=== PATIENT | female | born 1950 | race Caucasian/White ===

== ENCOUNTER 2017-06-14 13:20 | Inpatient (IN) | payer BC ==
[2017-06-14] MEDS ORDERED: RX INFO: IV CONTRAST WAS GIVEN 1 EACH MISC MISCELLANE PRN (13:51)
[2017-06-14] MEDS ORDERED: SODIUM CHLORIDE 0.9% 500 ML IV STA (13:51)
[2017-06-14] MEDS ORDERED: SODIUM CHLORIDE 0.9% 1,000 ML IV STA (13:51)
[2017-06-14 14:05] LABS: HCT 39.2 % (34.0-46.0); MCHC 35.7 g/dL (31.0-37.0); Mean Platelet Volume 7.6; Platelet Count 285 k/uL (150-450); RBC 4.13 m/uL (3.80-5.40); RDW 13.2 % (11.5-15.5); WBC 21.7 k/uL (3.8-10.6)
[2017-06-14 14:19] LABS: Calcium 8.9 mg/dL (8.4-10.2); Potassium 4.5 mmol/L (3.5-5.1); Total Bilirubin 0.7 mg/dL (0.2-1.3); Total Protein 7.5 g/dL (6.3-8.2)
--- NOTE | 2017-06-14 14:23 | ED ---
General Adult HPI - General Chief complaint: Shortness of Breath Stated complaint: Neck Pain Time Seen by Provider: 06/14/17 13:35 Source: patient, RN notes reviewed, old records reviewed Mode of arrival: ambulatory Limitations: no limitations - History of Present Illness Initial comments: This is a 66-year-old female the ER for evaluation. Multiple medical conditions and complaints. Patient states 2-3 weeks of multiple nonspecific complaints, chest pain back pain numbness and tingling in her hands, occasional shortness of breath with feelings of bloating and belching, occasional hiccuping and reflux. No fevers or cough congestion no travel history no significant sick contacts - Related Data Home Medications Medication Instructions Recorded Confirmed Albuterol Inhaler [Ventolin Hfa 2 puff INHALATION RT-Q6H PRN 06/14/17 06/14/17 Inhaler] Albuterol Nebulized [Ventolin 2.5 mg INHALATION RT-Q6H PRN 06/14/17 06/14/17 Nebulized] Calcium/Magnesium/Zinc 1 tab PO DAILY 06/14/17 06/14/17 [Xmqdirk-Vatxeclaa-Kiyw Tablet] Felicia-C 1,000 mg PO DAILY 06/14/17 06/14/17 Levothyroxine Sodium [Synthroid] 50 mcg PO DAILY 06/14/17 06/14/17 Mometasone/Formoterol [Dulera 100 2 puff INHALATION RT-DAILY 06/14/17 06/14/17 Mcg/5 Mcg Inhaler] Multivitamins, Thera [Multivitamin 1 tab PO DAILY 06/14/17 06/14/17 (formulary)] Vitamin E (Dl,Tocopheryl Acet) 400 unit PO DAILY 06/14/17 06/14/17 [Vitamin E] Allergies Allergy/AdvReac Type Severity Reaction Status Date / Time cefaclor [From Ceclor] Allergy Unknown Verified 06/14/17 13:47 ciprofloxacin [From Cipro] Allergy Unknown Verified 06/14/17 13:47 clarithromycin [From Biaxin] Allergy Unknown Verified 06/14/17 13:47 Sulfa (Sulfonamide Allergy Unknown Verified 06/14/17 13:47 Antibiotics) Review of Systems ROS Statement: Those systems with pertinent positive or pertinent negative responses have been documented in the HPI. ROS Other: All systems not noted in ROS Statement are negative. Past Medical History Past Medical History: Asthma, Pneumonia, Thyroid Disorder History of Any Multi-Drug Resistant Organisms: None Reported Past Surgical History: Cholecystectomy Past Psychological History: No Psychological Hx Reported Smoking Status: Former smoker Past Alcohol Use History: Occasional Past Drug Use History: None Reported General Exam Limitations: no limitations General appearance: alert, in no apparent distress Head exam: Present: atraumatic, normocephalic, normal inspection Eye exam: Present: normal appearance, PERRL, EOMI. Absent: scleral icterus, conjunctival injection, periorbital swelling ENT exam: Present: normal exam, mucous membranes moist Neck exam: Present: normal inspection. Absent: tenderness, meningismus, lymphadenopathy Respiratory exam: Present: normal lung sounds bilaterally. Absent: respiratory distress, wheezes, rales, rhonchi, stridor Cardiovascular Exam: Present: regular rate, normal rhythm, normal heart sounds. Absent: systolic murmur, diastolic murmur, rubs, gallop, clicks GI/Abdominal exam: Present: soft, normal bowel sounds. Absent: distended, tenderness, guarding, rebound, rigid Extremities exam: Present: normal inspection, full ROM, normal capillary refill. Absent: tenderness, pedal edema, joint swelling, calf tenderness Back exam: Present: normal inspection Neurological exam: Present: alert, oriented X3, CN II-XII intact Psychiatric exam: Present: normal affect, normal mood Skin exam: Present: warm, dry, intact, normal color. Absent: rash Course Vital Signs 06/14/17 06/14/17 06/14/17 13:28 15:04 15:46 Temperature 99.2 F Pulse Rate 75 103 H 103 H Respiratory 18 18 20 Rate Blood Pressure 116/59 133/80 149/79 O2 Sat by Pulse 98 96 98 Oximetry - Reevaluation(s) Reevaluation #1: 06/14/17 16:07 Patient not showing any And I'll like effects of pericardial effusion, EKG Findings - EKG Comments: EKG Findings:: EKG shows sinus tachycardia rate 170, HI 122, QRS 94, QTC 479 Medical Decision Making - Medical Decision Making 66 female with moderate to severe pericardial effusion, white count 20, likely reactive myocarditis, patient be admitted for cardiothoracic and cardiology consultation - Lab Data Result diagrams: 06/14/17 13:42 06/14/17 13:42 Lab Results 06/14/17 06/14/17 06/14/17 Range/Units 13:42 13:42 13:42 WBC 21.7 H (3.8-10.6) k/uL RBC 4.13 (3.80-5.40) m/uL Hgb 14.0 (11.4-16.0) gm/dL Hct 39.2 (34.0-46.0) % MCV 95.0 (80.0-100.0) fL MCH 34.0 (25.0-35.0) pg MCHC 35.7 (31.0-37.0) g/dL RDW 13.2 (11.5-15.5) % Plt Count 285 (150-450) k/uL Neutrophils % (Manual) 29 % Lymphocytes % (Manual) 38 % Monocytes % (Manual) 2 % Eosinophils % (Manual) 31 % Neutrophils # (Manual) 6.29 (1.3-7.7) k/uL Lymphocytes # (Manual) 8.25 H (1.0-4.8) k/uL Monocytes # (Manual) 0.43 (0-1.0) k/uL Eosinophils # (Manual) 6.73 H (0-0.7) k/uL Nucleated RBCs 0 (0-0) /100 WBC Manual Slide Review Performed Hypochromasia (manual) Present PT (9.0-12.0) sec INR (<1.2) APTT (22.0-30.0) sec D-Dimer (<0.60) mg/L FEU Sodium 134 L (137-145) mmol/L Potassium 4.5 (3.5-5.1) mmol/L Chloride 96 L (98-107) mmol/L Carbon Dioxide 25 (22-30) mmol/L Anion Gap 13 mmol/L BUN 16 (7-17) mg/dL Creatinine 0.89 (0.52-1.04) mg/dL Est GFR (CKD-EPI)AfAm 79 (>60 ml/min/1.73 sqM) Est GFR (CKD-EPI)NonAf 69 (>60 ml/min/1.73 sqM) Glucose 143 H (74-99) mg/dL Calcium 8.9 (8.4-10.2) mg/dL Total Bilirubin 0.7 (0.2-1.3) mg/dL AST 53 H (14-36) U/L ALT 51 (9-52) U/L Alkaline Phosphatase 79 (38-126) U/L Total Creatine Kinase 123 (30-135) U/L CK-MB (CK-2) 9.7 H* (0.0-2.4) ng/mL CK-MB (CK-2) Rel Index 7.9 Troponin I 1.920 H* (0.000-0.034) ng/mL NT-Pro-B Natriuret Pep pg/mL Total Protein 7.5 (6.3-8.2) g/dL Albumin 4.0 (3.5-5.0) g/dL Lipase 56 (23-300) U/L 06/14/17 06/14/17 Range/Units 13:42 13:42 WBC (3.8-10.6) k/uL RBC (3.80-5.40) m/uL Hgb (11.4-16.0) gm/dL Hct (34.0-46.0) % MCV (80.0-100.0) fL MCH (25.0-35.0) pg MCHC (31.0-37.0) g/dL RDW (11.5-15.5) % Plt Count (150-450) k/uL Neutrophils % (Manual) % Lymphocytes % (Manual) % Monocytes % (Manual) % Eosinophils % (Manual) % Neutrophils # (Manual) (1.3-7.7) k/uL Lymphocytes # (Manual) (1.0-4.8) k/uL Monocytes # (Manual) (0-1.0) k/uL Eosinophils # (Manual) (0-0.7) k/uL Nucleated RBCs (0-0) /100 WBC Manual Slide Review Hypochromasia (manual) PT 11.1 (9.0-12.0) sec INR 1.2 H (<1.2) APTT 24.4 (22.0-30.0) sec D-Dimer 0.81 H (<0.60) mg/L FEU Sodium (137-145) mmol/L Potassium (3.5-5.1) mmol/L Chloride (98-107) mmol/L Carbon Dioxide (22-30) mmol/L Anion Gap mmol/L BUN (7-17) mg/dL Creatinine (0.52-1.04) mg/dL Est GFR (CKD-EPI)AfAm (>60 ml/min/1.73 sqM) Est GFR (CKD-EPI)NonAf (>60 ml/min/1.73 sqM) Glucose (74-99) mg/dL Calcium (8.4-10.2) mg/dL Total Bilirubin (0.2-1.3) mg/dL AST (14-36) U/L ALT (9-52) U/L Alkaline Phosphatase (38-126) U/L Total Creatine Kinase (30-135) U/L CK-MB (CK-2) (0.0-2.4) ng/mL CK-MB (CK-2) Rel Index Troponin I (0.000-0.034) ng/mL NT-Pro-B Natriuret Pep 5020 pg/mL Total Protein (6.3-8.2) g/dL Albumin (3.5-5.0) g/dL Lipase (23-300) U/L - Radiology Data Radiology results: report reviewed (CTA chest and pelvis positive for pericardial effusion, echocardiogram moderate to severe pericardial effusion), image reviewed Critical Care Time Critical Care Time: Yes Total Critical Care Time: 31 Disposition Clinical Impression: Pericardial effusion, Elevated troponin Disposition: ADMITTED IP TO THIS HOSP Condition: Fair Referrals: Katerin Whitlock MD [Primary Care Provider] - 1-2 days
[2017-06-14 14:24] LABS: INR 1.2 (<1.2)
[2017-06-14 14:25] LABS: D-Dimer 0.81 mg/L FEU (<0.60); Partial Thromboplastin Time 24.4 sec (22.0-30.0); Prothrombin Time 11.1 sec (9.0-12.0)
[2017-06-14 14:27] LABS: Eosinophils # (M) 6.73 k/uL (0-0.7); Hypochromasia (M) Present; Lymphocytes # (M) 8.25 k/uL (1.0-4.8); Monocytes # (M) 0.43 k/uL (0-1.0); Neutrophils # (M) 6.29 k/uL (1.3-7.7); Neutrophils % (M) 29 %; Nucleated Red Blood Cells 0 /100 WBC (0-0); Total Cells Counted 100
--- NOTE | 2017-06-14 14:47 | CT ---
EXAMINATION TYPE: CT cervical spine wo con DATE OF EXAM: 06/14/2017 COMPARISON: NONE HISTORY: Patient complains of neck pain with radiation bilaterally to the arms. CT DLP: 168.7 mGycm CONTRAST: None CT of the cervical spine is performed in the axial plane at 2 mm thick sections. Reconstructed image s in the coronal, and sagittal plane are reviewed on the computer. No acute fractures are evident. Vertebral body alignment is normal. Diffuse disc space narrowing is present. Minimal vacuum disc phenomenon is present C5-C6. Note is mad e of spina bifida occulta at C1. Vertebral body heights are preserved. No spinal canal stenosis is evident No neural foraminal stenosis is evident. Incidental note is made of a small right pleural effusion. IMPRESSIONS: 1. Mild degenerative disc changes cervical spine. 2. No acute osseous abnormality evident.
--- NOTE | 2017-06-14 14:50 | CT ---
CT CHEST FOR PULMONARY EMBOLISM. EXAMINATION TYPE: CT angio chest DATE OF EXAM: 06/14/2017 INDICATION: Patient complains of difficulty breathing and chest congestion. CT DLP: 116.8 mGycm, Automated exposure control for dose reduction was used. CONTRAST: Patient injected with 100 mL of Isovue 370. COMPARISON: 05/03/2010 TECHNIQUE: CT of the chest is performed on a spiral scan at 2 mm thick sections. Study is performed with intravenous contrast timed for evaluation for pulmonary embolism. This will limit additional po rtions of the evaluation. 3-D MIP images reconstructed by the technologist are reviewed on the compu ter in the coronal and sagittal planes. FINDINGS: No persistent filling defects are evident to suggest an acute pulmonary embolism. No mediastinal or hilar adenopathy enlarged by CT criteria is evident. The ascending aorta diameter at the level of the main pulmonary artery is 3.1 cm. The main pulmonary artery diameter at the bifur cation is 2.5 cm. There is a moderate right pleural effusion. Pericardial effusion is present. Bilateral breast prostheses are present. There are scattered infiltrates throughout the bilateral craig gs on lung windows. Right apical thickening may be present. Limited CT section through the upper abdomen are unremarkable. IMPRESSIONS: 1. Small bilateral pleural effusions. 2. Pericardial effusion. 3. Scattered infiltrates greater at the lung bases. Correlate for atelectasis. 4. No acute pulmonary embolism.
--- NOTE | 2017-06-14 14:54 | CT ---
EXAMINATION TYPE: CT abdomen pelvis w con DATE OF EXAM: 06/14/2017 COMPARISON: NONE INDICATION: Patient complains of LUQ pain and nausea. DLP: 1314.8 mGycm, Automated exposure control for dose reduction was used. CONTRAST: 100 mL of Isovue 370. Study performed without Oral Contrast TECHNIQUE: Axial images were obtained from above the diaphragm to the pubic rami in the axial plane a t 5 mm thick sections. Reconstructed images are reviewed on the computer in the coronal plane. FINDINGS: Limited CT sections are obtained the lung bases. Small bilateral pleural effusions are present. Some adjacent compressive atelectasis is likely present. Large pericardial effusion is again evident.. CT ABDOMEN: Liver: On early phase contrast images the liver and spleen and heterogenous appearance. These have a more homogenous appearance on delayed images. Spleen: Normal Pancreas: Normal Adrenal glands: The adrenal glands are normal. Gallbladder: Surgically absent. Kidneys: No masses are evident. No hydronephrosis is present. No cysts are present. Delayed images were obtained through the kidneys, which remain unremarkable. Aorta: Vascular calcification is within the aorta. Inferior vena cava: Normal. CT PELVIS: Loops of bowel within the abdomen and pelvis are normal. Appendix: Normal as visualized. Urinary bladder: Normal. Genitourinary structures: Free fluid is within the right hemipelvis. Uterus and adnexal regions appea r clear. Osseous structures: No suspicious lytic or sclerotic lesions. IMPRESSIONS: 1. Small bilateral pleural effusions. 2. Moderately large pericardial effusion. 3. No suspicious abnormality within the abdomen or pelvis. #4 free fluid within the pelvis.
[2017-06-14 15:02] LABS: Creatine Kinase MB 9.7 ng/mL (0.0-2.4); Troponin I 1.92 ng/mL (0.000-0.034)
[2017-06-14] MEDS ORDERED: ASPIRIN 81 MG PO STA (15:11)
[2017-06-14] MEDS ORDERED: NITROGLYCERIN SL TABS 0.4 MG TAB SUBLINGUAL PRN (15:11)
[2017-06-14] MEDS ORDERED: MORPHINE SULFATE 4MG/4ML SYRG IV PRN (15:11)
--- NOTE | 2017-06-14 17:28 | P.HPIM ---
History of Present Illness H&P Date: 06/14/17 Chief Complaint: exertional dyspnea 66-year-old female with history of hypothyroid and intermittent asthma. Patient presented to the ER due to symptoms of new onset exertional dyspnea, orthopnea, productive cough of yellowish sputum, and wheezing. She reports that she is healthy otherwise and pretty active normally however over the past 2 weeks she couldn't even walk around the house without having exertional dyspnea having to rest. However despite that she denies any chest pain or pleuritic chest pain. Denies any fevers or chills. She reports that back in early May she had flulike symptoms and was sick for around 10 days with severe symptoms of fevers muscle aches, sore throat, runny nose and coughing. She got treated with a course of antibiotic at that time. And then 2 weeks later she developed symptoms of generalized malaise weakness, neck pain radiating to both arms, belching, dyspepsia and hookups. She saw her PCP for that prescribed her some Protonix, and then later was followed by the symptoms above orthopnea and exertional dyspnea. She has never had a heart attack in her life, she quit smoking over 8 years ago , and she reports reports that she has been pretty much healthy all her life. She reports no significant family history of coronary artery disease. She denies any leg swelling, but does report early satiety and poor appetite. Review of Systems Constitutional: Patient denies fever, denies chills, denies night sweating, denies significant weight changes Eyes: Patient denies visual changes, denies eye pain ENT: Patient denies ear pain, denies rhinorrhea, denies sore throat Cardiovascular: Patient denies chest pain, reports exertional dyspnea, denies peripheral leg edema, reports orthopnea, denies paroxysmal nocturnal dyspnea Respiratory: as per HPI Gastrointestinal: Patient denies diarrhea, denies constipation, denies nausea , denies vomiting, denies abdominal pain Genitourinary: Patient denies dysuria, denies hematuria, denies changes in urinary habits, denies genital lesions Musculoskeletal: Patient denies muscle pain, denies joint pain Psychiatric: Patient denies changes in mood or memory, denies suicidal ideation, denies anxiety Endocrine: Patient denies heat intolerance, denies cold intolerance, denies excessive thirst, denies polyuria Neurological: Patient denies focal neurologic deficits, denies weakness, denies numbness, denies tingling Hem/Lymphatic: Patient denies bleeding tendency, denies bruising, denies swollen lymph glands Allergic/Immun: Patient denies recent allergic reactions Skin: Patient denies rashes, denies pruritis, denies ulcers Past Medical History Past Medical History: Asthma, Pneumonia, Thyroid Disorder History of Any Multi-Drug Resistant Organisms: None Reported Past Surgical History: Cholecystectomy Past Psychological History: No Psychological Hx Reported Smoking Status: Former smoker Past Alcohol Use History: Occasional Past Drug Use History: None Reported - Past Family History Family Additional Family Medical History / Comment(s): Healthy family overall they all live to old age and healthy. grandfather Additional Family Medical History / Comment(s): lung cancer Medications and Allergies Home Medications Medication Instructions Recorded Confirmed Type Albuterol Inhaler [Ventolin Hfa 2 puff INHALATION RT-Q6H PRN 06/14/17 06/14/17 History Inhaler] Albuterol Nebulized [Ventolin 2.5 mg INHALATION RT-Q6H PRN 06/14/17 06/14/17 History Nebulized] Calcium/Magnesium/Zinc 1 tab PO DAILY 06/14/17 06/14/17 History [Blwnely-Rshcquivj-Uhys Tablet] Felicia-C 1,000 mg PO DAILY 06/14/17 06/14/17 History Levothyroxine Sodium [Synthroid] 50 mcg PO DAILY 06/14/17 06/14/17 History Mometasone/Formoterol [Dulera 100 2 puff INHALATION RT-DAILY 06/14/17 06/14/17 History Mcg/5 Mcg Inhaler] Multivitamins, Thera [Multivitamin 1 tab PO DAILY 06/14/17 06/14/17 History (formulary)] Vitamin E (Dl,Tocopheryl Acet) 400 unit PO DAILY 06/14/17 06/14/17 History [Vitamin E] Allergies Allergy/AdvReac Type Severity Reaction Status Date / Time cefaclor [From Ceclor] Allergy Unknown Verified 06/14/17 13:47 ciprofloxacin [From Cipro] Allergy Unknown Verified 06/14/17 13:47 clarithromycin [From Biaxin] Allergy Unknown Verified 06/14/17 13:47 Sulfa (Sulfonamide Allergy Unknown Verified 06/14/17 13:47 Antibiotics) Physical Exam Vitals: Vital Signs Temp Pulse Resp BP Pulse Ox 06/14/17 15:46 103 H 20 149/79 98 06/14/17 15:04 103 H 18 133/80 96 06/14/17 13:28 99.2 F 75 18 116/59 98 Intake and Output 06/14/17 06/14/17 06/14/17 06:59 14:59 22:59 Other: Weight 56.699 kg Constitutional: No acute distress, conversant, pleasant Eyes: Anicteric sclerae, moist conjunctiva, no lid-lag Pupils equal round reactive to light ENMT: NC/AT Oropharynx clear, no erythema, exudates Neck: Supple, FROM, no masses, positive JVD No carotid bruits No thyromegaly Lungs: Decreased breath sounds at lung bases with and expiratory rhonchi, fine inspiratory rales Clear to percussion Normal respiratory effort Cardiovascular: Heart regular in rate and rhythm, frequent ectopic beats, pericardial rubs No murmurs, gallops No peripheral edema Abdominal: Soft Tenderness to deep palpation over the epigastric region , no guarding, rebound or rigidity Abdomen moving with respiration Normoactive bowel sounds No hepatomegaly, No splenomegaly No palpable mass No abdominal wall hernia noted Skin: Normal temperature, tone, texture, turgor No induration No subcutaneous nodules No rash, lesions No ulcers Extremities: No digital cyanosis No clubbing Pedal pulses intact and symmetrical Radial pulses intact and symmetrical No calf tenderness Psychiatric: Alert and oriented to person, place and time Appropriate affect fair judgment Neuro Muscles Strength 5/5 in all 4 extremities Sensation to light touch grossly present throughout Cranial nerves II-XII grossly intact No focal sensory deficits Lymphatics: no palpable cervical or supraclavicular , or inguinal lymph nodes Results CBC & Chem 7: 06/14/17 13:42 06/14/17 13:42 Labs: Abnormal Lab Results - Last 24 Hours (Table) 06/14/17 06/14/17 06/14/17 Range/Units 13:42 13:42 13:42 WBC 21.7 H (3.8-10.6) k/uL Lymphocytes # (Manual) 8.25 H (1.0-4.8) k/uL Eosinophils # (Manual) 6.73 H (0-0.7) k/uL INR (<1.2) D-Dimer (<0.60) mg/L FEU Sodium 134 L (137-145) mmol/L Chloride 96 L (98-107) mmol/L Glucose 143 H (74-99) mg/dL AST 53 H (14-36) U/L CK-MB (CK-2) 9.7 H* (0.0-2.4) ng/mL Troponin I 1.920 H* (0.000-0.034) ng/mL C-Reactive Protein (<10.0) mg/L 06/14/17 06/14/17 Range/Units 13:42 13:42 WBC (3.8-10.6) k/uL Lymphocytes # (Manual) (1.0-4.8) k/uL Eosinophils # (Manual) (0-0.7) k/uL INR 1.2 H (<1.2) D-Dimer 0.81 H (<0.60) mg/L FEU Sodium (137-145) mmol/L Chloride (98-107) mmol/L Glucose (74-99) mg/dL AST (14-36) U/L CK-MB (CK-2) (0.0-2.4) ng/mL Troponin I (0.000-0.034) ng/mL C-Reactive Protein 58.0 H (<10.0) mg/L Assessment and Plan Assessment: 66-year-old female with history of intermittent asthma and hypothyroid, presented with 1-2 week history of orthopnea, exertional dyspnea, and generalized weakness and malaise. She reported that she is healthy at baseline , however she had flulike symptoms in early May lasted for 2 weeks and then within a week or 2 later she started having symptoms of generalized malaise weakness, dyspepsia, exertional dyspnea, and orthopnea. She denies any chest pain. In the ER further workup including imaging with CAT scan of the chest suggested moderate to large pericardial effusion, labs showed elevated cardiac biomarkers, clinical picture suggestive of of left ventricular heart failure, along with EKG showing frequent PVCs. This is suggestive of myopericarditis however she denies any chest pain or any pleuritic chest pain. Patient will be admitted to the ICU for further workup and evaluation by cardiology and cardiothoracic surgery. 2-D echocardiogram is pending. Patient seems to be intolerant of NSAIDs so was started on prednisone and colchicine. Plan: # Probable myocarditis (new onset exertional dyspnea, EKG changes with frequent PVCs, elevated cardiac biomarkers) #Moderate to large Pericardial secondary to above and bilateral small pleural effusion rule out heart failure Patient with history of dyspepsia, currently on PPI I will avoid NSAIDs Start patient on prednisone 30 mg for 2 weeks and colchicine 0.6 mg daily for 3 months for myocarditis Check MELECIO Check 2-D echocardiogram Cardiology and cardiothoracic surgery consult Admission to the ICU for close monitoring Cardiac monitoring Check ESR Check CRP #Leukocytosis Most likely reactive Afebrile #Hypothyroidism Currently stable Continue with levothyroxine #Dyspepsia Continue with Protonix twice a day #DVT prophylaxis Heparin subcu 3 times a day Surrogate decision-maker: Patient CODE STATUS: Full code DVT prophylaxis: Heparin subcu Discussed with: Patient, ER, family Anticipated discharge: > [address]: Home A total of 60 minutes was spent on the care of this complex patient more than 50 % of the time was spent in counseling and care coordination.
--- NOTE | 2017-06-14 17:43 | ECHOF ---
Referral Reason:effusion MEASUREMENTS -------- HEIGHT: 162.6 cm WEIGHT: 56.7 kg BP: 133/80 RVIDd: 1.6 cm (< 3.3) IVSd: 1.0 cm (0.6 - 1.1) LVIDd: 4.4 cm (3.9 - 5.3) LVPWd: 0.9 cm (0.6 - 1.1) IVSs: 1.3 cm LVIDs: 2.8 cm LVPWs: 1.5 cm LA Diam: 3.3 cm (2.7 - 3.8) LAESV Index (A-L): 30.41 ml/m Ao Diam: 3.1 cm (2.0 - 3.7) AV Cusp: 1.8 cm (1.5 - 2.6) MV EXCURSION: 14.577 mm (> 18.000) MV EF SLOPE: 52 mm/s (70 - 150) EPSS: 0.7 cm MV E El: 0.69 m/s MV DecT: 199 ms MV A El: 0.77 m/s MV E/A Ratio: 0.90 RAP: 5.00 mmHg RVSP: 26.36 mmHg FINDINGS -------- Resting tachycardia (HR>100bpm). This was a technically good study. The left ventricular size is normal. Left ventricular wall thickness is normal. Overall left vent ricular systolic function is low-normal with, an EF between 50 - 55 %. The right ventricle is normal in size. LA is midly dilated 29-33ml/m2. The right atrium is normal in size. The aortic valve is trileaflet and appears structurally normal. [id number] mitral regurgitation is present. Mild tricuspid regurgitation present. Right ventricular systolic pressure is normal at < 35 mmHg. There is no pulmonic regurgitation present. The aortic root size is normal. The inferior vena cava is mildly dilated. There is a large, generalized pericardial effusion present. CONCLUSIONS -------- 1. Resting tachycardia (HR>100bpm). 2. This was a technically good study. 3. The left ventricular size is normal. 4. Left ventricular wall thickness is normal. 5. Overall left ventricular systolic function is low-normal with, an EF between 50 - 55 %. 6. The right ventricle is normal in size. 7. LA is midly dilated 29-33ml/m2. 8. The right atrium is normal in size. 9. The aortic valve is trileaflet and appears structurally normal. 10. [id number]-[id number]-vjjdom mitral regurgitation is present. 11. Mild tricuspid regurgitation present. 12. Right ventricular systolic pressure is normal at < 35 mmHg. 13. There is no pulmonic regurgitation present. 14. The aortic root size is normal. 15. The inferior vena cava is mildly dilated. 16. There is a large, generalized pericardial effusion present. PROCUREMENT ASSISTANT: Jesisca Smith RDCS
[2017-06-14 17:50] LABS: Glucose,Whole Blood 101 mg/dL (75-99)
--- NOTE | 2017-06-14 17:51 | P.CRDCN ---
History of Present Illness Consult date: 06/14/17 Chief complaint: Shortness of breath History of present illness: This is a pleasant 66-year-old female patient with no significant cardiac history presented to the emergency room with shortness of breath. The patient was in her usual state of health until about 3 weeks ago which she started experiencing left arm discomfort and neck discomfort area she did not have any symptoms of chest pain or chest discomfort at that point. She was seen by her primary care physician she was started on some medications. Subsequently she started experiencing exertional dyspnea which got progressed over the last week. No chest pain or chest discomfort or dizziness or lightheadedness or syncope. No fever and no chills. She just did not feed well and she felt tired and fatigued and had no energy whatsoever. Because of that she decided to come to the emergency room. In May 2017, she did have 2 weeks history of flu symptoms and her did as well. She stated that since then she has not been feeding well. When she presented to the emergency room she underwent a computed tomography scan of the chest and abdomen. The computed tomography scan revealed moderate to large pericardial effusion. She did undergo an echocardiogram which I reviewed and revealed normal left ventricular systolic function with evidence off large generalized pericardial effusion associated with right atrial collapse and impeding tamponade. The patient has been maintaining normal blood pressure but she is slightly tachycardic. She was started on colchicine as well as on steroid. Beside that she underwent an EKG which revealed sinus tachycardia with incomplete RBBB and nonspecific changes in the inferior leads. The troponin came in to be elevated and it was over 1. The hemoglobin and kidney function are within normal limits. In terms of past medical history, she does have asthma as well as thyroid disorder. No major cardiovascular disease. No history of connective tissue disease. No major surgery beside gallbladder surgery. The patient does not smoke or drink alcohol. No significant family history of coronary artery disease. Past Medical History Past Medical History: Asthma, Pneumonia, Thyroid Disorder History of Any Multi-Drug Resistant Organisms: None Reported Past Surgical History: Cholecystectomy Past Psychological History: No Psychological Hx Reported Smoking Status: Former smoker Past Alcohol Use History: Occasional Past Drug Use History: None Reported - Past Family History Family Additional Family Medical History / Comment(s): Healthy family overall they all live to old age and healthy. Grandpa with history of lung cancer Medications and Allergies Home Medications Medication Instructions Recorded Confirmed Type Albuterol Inhaler [Ventolin Hfa 2 puff INHALATION RT-Q6H PRN 06/14/17 06/14/17 History Inhaler] Albuterol Nebulized [Ventolin 2.5 mg INHALATION RT-Q6H PRN 06/14/17 06/14/17 History Nebulized] Calcium/Magnesium/Zinc 1 tab PO DAILY 06/14/17 06/14/17 History [Ahxeyli-Xqgckvyth-Oops Tablet] Felicia-C 1,000 mg PO DAILY 06/14/17 06/14/17 History Levothyroxine Sodium [Synthroid] 50 mcg PO DAILY 06/14/17 06/14/17 History Mometasone/Formoterol [Dulera 100 2 puff INHALATION RT-DAILY 06/14/17 06/14/17 History Mcg/5 Mcg Inhaler] Multivitamins, Thera [Multivitamin 1 tab PO DAILY 06/14/17 06/14/17 History (formulary)] Vitamin E (Dl,Tocopheryl Acet) 400 unit PO DAILY 06/14/17 06/14/17 History [Vitamin E] Allergies Allergy/AdvReac Type Severity Reaction Status Date / Time cefaclor [From Ceclor] Allergy Unknown Verified 06/14/17 13:47 ciprofloxacin [From Cipro] Allergy Unknown Verified 06/14/17 13:47 clarithromycin [From Biaxin] Allergy Unknown Verified 06/14/17 13:47 Sulfa (Sulfonamide Allergy Unknown Verified 06/14/17 13:47 Antibiotics) Physical Exam Vitals: Vital Signs Temp Pulse Resp BP Pulse Ox 06/14/17 17:35 98.7 F 110 H 18 141/84 99 06/14/17 15:46 103 H 20 149/79 98 06/14/17 15:04 103 H 18 133/80 96 06/14/17 13:28 99.2 F 75 18 116/59 98 Intake and Output 06/14/17 06/14/17 06/14/17 06:59 14:59 22:59 Other: Weight 56.699 kg - Constitutional General appearance: no acute distress - Respiratory Respiratory: bilateral: wheezing - Cardiovascular Rhythm: regular Heart sounds: normal: S1, S2 Results 06/14/17 13:42 06/14/17 13:42 Cardiac Enzymes 04/13/18 04/13/18 Range/Units 13:42 13:42 AST 53 H (14-36) U/L CK-MB (CK-2) 9.7 H* (0.0-2.4) ng/mL Troponin I 1.920 H* (0.000-0.034) ng/mL Coagulation 06/14/17 Range/Units 13:42 PT 11.1 (9.0-12.0) sec APTT 24.4 (22.0-30.0) sec CBC 06/14/17 Range/Units 13:42 WBC 21.7 H (3.8-10.6) k/uL RBC 4.13 (3.80-5.40) m/uL Hgb 14.0 (11.4-16.0) gm/dL Hct 39.2 (34.0-46.0) % Plt Count 285 (150-450) k/uL Comprehensive Metabolic Panel 06/14/17 Range/Units 13:42 Sodium 134 L (137-145) mmol/L Potassium 4.5 (3.5-5.1) mmol/L Chloride 96 L (98-107) mmol/L Carbon Dioxide 25 (22-30) mmol/L BUN 16 (7-17) mg/dL Creatinine 0.89 (0.52-1.04) mg/dL Glucose 143 H (74-99) mg/dL Calcium 8.9 (8.4-10.2) mg/dL AST 53 H (14-36) U/L ALT 51 (9-52) U/L Alkaline Phosphatase 79 (38-126) U/L Total Protein 7.5 (6.3-8.2) g/dL Albumin 4.0 (3.5-5.0) g/dL Current Medications Generic Name Dose Route Start Last Admin Trade Name Freq PRN Reason Stop Dose Admin Albuterol/Ipratropium 3 ml 06/14/17 17:21 Duoneb 0.5 Mg-3 Mg/3 Ml Soln INHALATION RT-QID PRN Shortness Of Breath Or Wheezing Aspirin 325 mg 06/15/17 09:00 Aspirin PO DAILY LUCIA Budesonide/Formoterol Fumarate 2 puff 06/15/17 08:00 Symbicort 80-4.5 Mcg Inhaler INHALATION RT-DAILY LUCIA Colchicine 0.6 mg 06/14/17 17:15 Colcrys PO 09/13/17 00:05 DAILY LUCIA Sodium Chloride 1,000 mls @ 100 mls/hr 06/14/17 13:51 06/14/17 15:00 Saline 0.9% IV 06/14/17 23:50 100 mls/hr .Q10H STA Administration Levothyroxine Sodium 50 mcg 06/15/17 06:30 [place]throid PO 0630 LUCIA Miscellaneous Information 1 each 06/14/17 13:51 06/14/17 15:03 Rx Info: Iv Contrast Was Given MISCELLANE 06/16/17 13:52 1 each DAILY PRN Administration Per Protocol Morphine Sulfate 4 mg 06/14/17 15:11 Morphine Sulfate (Inj) IV Q5M PRN Chest Pain Nitroglycerin 0.4 mg 06/14/17 15:11 Nitrostat SUBLINGUAL Q5M PRN Chest Pain Pantoprazole Sodium 40 mg 06/14/17 17:30 Protonix PO AC-BID LUCIA Prednisone 30 mg 06/14/17 17:15 PO 06/29/17 00:05 DAILY LUCIA Intake and Output 06/14/17 06/14/17 06/14/17 06:59 14:59 22:59 Other: Weight 56.699 kg Patient Weight 06/15/17 06:59 Weight 56.699 kg 06/14/17 13:42 06/14/17 13:42 Assessment and Plan Assessment: Assessment #1 large pericardial effusion of unknown etiology. #2 abnormal cardiac enzymes. #3 history of upper respiratory infection recently #4 thyroid disorder #5 history of asthma Plan #1 the pericardial effusion is likely related to myopericarditis given the history of upper respiratory infection recently. Hypothyroidism to be ruled out. Connective tissue disease to be ruled out as well. The computed tomography scan did not show any evidence of cancer. #2 we will obtain TSH. Obtain ESR. #3 the patient was started on clonidine as well as steroids and we will continue that #4 she has been maintaining good blood pressure. She is slightly tachycardic with heart rate around 100 beats per minutes. #5 the abnormal cardiac enzymes either related to the myocarditis or mismatch. Severe underlying coronary artery disease to be ruled out down the line #6 surgical consult to perform pericardial window/pericardiocentesis was placed. #7 avoid any kind of blood pressure medications or diuretics #8 we will continue following up with the patient. Thank you for allowing us participate in her care
[2017-06-14] MEDS ORDERED: NALOXONE 0.4 MG/ML 1 ML VIAL IV PRN (17:55)
[2017-06-14 18:23] LABS: Amphetamine Screen,Urine Not Detected (NotDetected); Barbiturate Screen,Urine Not Detected (NotDetected); Benzodiazepines Screen,Urine Not Detected (NotDetected); Cocaine Screen,Urine Not Detected (NotDetected); Methadone Screen, Urine Not Detected (NotDetected); Opiate Screen,Urine Detected (NotDetected); Oxycodone Screen, Urine Not Detected (NotDetected); Phencyclidine Screen,Urine Not Detected (NotDetected); Tricyclic Antidepressant,Urine Not Detected (NotDetected); Urn Cannabinoid Scrn Not Detected (NotDetected)
[2017-06-14] MEDS: predniSONE 10 MG TAB PO SCH (18:46)
[2017-06-14] MEDS: PANTOPRAZOLE 40 MG TABLET PO SCH (18:47)
[2017-06-14] MEDS: COLCHICINE 0.6 MG EACH PO SCH (18:47)
[2017-06-14 18:57] LABS: Appearance,Urine Clear (Clear); Bilirubin,Urine Negative (Negative); Blood,Urine Moderate (Negative); Color,Urine Yellow; Glucose,Urine (UA) Negative (Negative); Ketones,Urine 2+ (Negative); Leukocyte Esterase,Urine Negative (Negative); Nitrite,Urine Negative (Negative); PH, Urine 6.5 (5.0-8.0); Protein,Urine Trace (Negative); RBC,Urine 3 /hpf (0-5); Urobilinogen,Urine <2.0 mg/dL (<2.0); WBC,Urine 3 /hpf (0-5)
[2017-06-14 19:05] LABS: Specific Gravity,Urine >1.050 (1.001-1.035)
[2017-06-14] MEDS: IPRATROPIUM-ALBUTEROL 3 ML NEB INHALATION PRN (19:27)
[2017-06-14 19:52] LABS: Calcium 8.5 mg/dL (8.4-10.2); Magnesium 2.1 mg/dL (1.6-2.3); Phosphorus 3.4 mg/dL (2.5-4.5); Potassium 4.3 mmol/L (3.5-5.1)
[2017-06-14 19:54] LABS: HCT 37.4 % (34.0-46.0); HGB 12.7 gm/dL (11.4-16.0); MCH 32.7 pg (25.0-35.0); MCV 96.1 fL (80.0-100.0); Mean Platelet Volume 7.3; Platelet Count 265 k/uL (150-450); RBC 3.89 m/uL (3.80-5.40); RDW 13.2 % (11.5-15.5)
[2017-06-14 20:16] LABS: Creatine Kinase MB 9.7 ng/mL (0.0-2.4); Troponin I 2.23 ng/mL (0.000-0.034)
[2017-06-14 20:50] LABS: Neutrophils % (M) 33 %; Nucleated Red Blood Cells 0 /100 WBC (0-0); Polychromasia Present; Total Cells Counted 100
[2017-06-14 21:12] LABS: Glucose,Whole Blood 152 mg/dL (75-99)
[2017-06-14] MEDS: INSULIN ASPART 100 UNIT/ML 1 ML 10 ML VIAL SQ SCH (21:16)
[2017-06-14] MEDS: ACETAMINOPHEN TAB 325 MG TAB PO PRN (21:31)
[2017-06-15] MEDS: HEPARIN SODIUM,PORCINE 5,000 UNIT/ML 1 ML VIAL SQ SCH ×3 (00:18→18:07)
[2017-06-15 02:45] LABS: Troponin I 1.68 ng/mL (0.000-0.034)
[2017-06-15 05:05] LABS: HCT 35.4 % (34.0-46.0); HGB 11.9 gm/dL (11.4-16.0); MCH 33.2 pg (25.0-35.0); MCHC 33.7 g/dL (31.0-37.0); MCV 98.6 fL (80.0-100.0); Mean Platelet Volume 7.7; Platelet Count 225 k/uL (150-450); RBC 3.59 m/uL (3.80-5.40); RDW 13.1 % (11.5-15.5); WBC 10.1 k/uL (3.8-10.6)
[2017-06-15 05:12] LABS: INR 1.2 (<1.2); Partial Thromboplastin Time 24.1 sec (22.0-30.0); Prothrombin Time 11.4 sec (9.0-12.0)
[2017-06-15 05:16] LABS: Anion Gap 13 mmol/L; Blood Urea Nitrogen 14 mg/dL (7-17); Calcium 8.3 mg/dL (8.4-10.2); Carbon Dioxide 20 mmol/L (22-30); Chloride 105 mmol/L (98-107); Cholesterol 142 mg/dL (<200); Glucose 143 mg/dL (74-99); HDL Cholesterol 31 mg/dL (40-60); LDL Cholesterol,Calculated 93 mg/dL (0-99); Magnesium 2.3 mg/dL (1.6-2.3); Phosphorus 3.6 mg/dL (2.5-4.5); Potassium 4.7 mmol/L (3.5-5.1); Sodium 138 mmol/L (137-145); Triglycerides 89 mg/dL (<150)
[2017-06-15 06:01] LABS: Eosinophils # (M) 0.61 k/uL (0-0.7); Lymphocytes # (M) 3.74 k/uL (1.0-4.8); Monocytes # (M) 0.51 k/uL (0-1.0); Neutrophils # (M) 5.15 k/uL (1.3-7.7); Neutrophils % (M) 51 %; Nucleated Red Blood Cells 0 /100 WBC (0-0); Total Cells Counted 100
--- NOTE | 2017-06-15 06:49 | XR ---
EXAMINATION TYPE: XR chest 1V portable DATE OF EXAM: 06/15/2017 HISTORY: pericardial effusion. REFERENCE: Previous study dated 06/01/2013. FINDINGS: There have developed bilateral pleural effusions. There is bibasilar airspace disease. The heart is enlarged. Pulmonary vasculature is normal. IMPRESSION: 1. INTERVAL DEVELOPMENT OF BILATERAL EFFUSIONS WHICH ARE SMALL. 2. BIBASILAR AIRSPACE DISEASE. 3. CARDIOMEGALY.
[2017-06-15 07:19] LABS: Glucose,Whole Blood 115 mg/dL (75-99)
[2017-06-15] MEDS: INSULIN ASPART 100 UNIT/ML 1 ML 10 ML VIAL SQ SCH ×4 (07:36→20:52)
[2017-06-15] MEDS: PANTOPRAZOLE 40 MG TABLET PO SCH ×2 (07:40→18:07)
[2017-06-15] MEDS: LEVOTHYROXINE 50 MCG TAB PO SCH (07:40)
[2017-06-15] MEDS: SYMBICORT 80-4.5 MCG INHALER INHALATION SCH (07:44)
[2017-06-15] MEDS: IPRATROPIUM-ALBUTEROL 3 ML NEB INHALATION PRN ×2 (07:44→15:26)
[2017-06-15] MEDS ORDERED: ASPIRIN 325 MG TAB PO SCH (09:00)
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
[2017-06-15] MEDS: predniSONE 10 MG TAB PO SCH (11:20)
[2017-06-15] MEDS: COLCHICINE 0.6 MG EACH PO SCH (11:20)
[2017-06-15 11:56] LABS: Glucose,Whole Blood 91 mg/dL (75-99)
--- NOTE | 2017-06-15 13:14 | PN ---
PROGRESS NOTE Mrs. Thomas is a 66-year-old female who presented with progressive dyspnea, was noted to have significant pericardial effusion. Subsequently to that, she was admitted to the hospital. She had an echocardiogram done yesterday and the echocardiogram showed a large generalized pericardial effusion. She is feeling better today. Her breathing has been stable. She denies any chest pain or dizziness. She denies any palpitations. She had a finding consistent with a viral infection a few weeks ago. Of note that her echocardiogram revealed evidence of moderate to severe mitral regurgitation. She has been started yesterday on prednisone. In addition to that she is on clindamycin , Protonix and colchicine. PHYSICAL EXAMINATION: Blood pressure 127/70 with a heart rate in the high 90s, low 100s. LUNGS: Clear. HEART: Regular rate and rhythm S1, S2. No S3 with systolic murmur. Elevated JVP ABDOMEN: Soft, nontender. EXTREMITIES: No edema. LAB DATA: Lab data revealed a troponin peak at 2.2, down to 1.68 at this point. Her BUN and creatinine 14 and 0.7, hemoglobin of 11.9. Her cholesterol is 142 with an LDL of 93. IMPRESSION: 1. Pericardial effusion of unclear etiology with associated symptoms of dyspnea could be a viral pericarditis. The left ventricular systolic function is normal. 2. Mild elevation of troponin, probably related to initial event. There is no clear evidence to suggest an ischemic event. RECOMMENDATION: We will continue current therapy. The patient is scheduled to undergo pericardial window on Saturday. MMODL / IJN: [id number] / MTDD
--- NOTE | 2017-06-15 13:52 | P.PN ---
Subjective Progress Note Date: 06/15/17 Principal diagnosis: follow-up on patient for probable myocarditis with pericardial effusion Patient seen and examined today, continues to be comfortable denies any chest pain, she reports that her breathing feels better now. Denies any leg swelling , congestion, or coughing. She is tolerating by mouth intake. Objective - Vital Signs Vital signs: Vital Signs Temp 98.6 F 06/15/17 12:00 Pulse 105 H 06/15/17 13:00 Resp 18 06/15/17 13:00 BP 120/80 06/15/17 13:00 Pulse Ox 94 L 06/15/17 13:00 Intake & Output 06/14/17 06/15/17 06/15/17 18:59 06:59 18:59 Intake Total 1440 1000 Balance 1440 1000 Weight 56.699 kg 61.1 kg Intake: IV 1200 700 Sodium Chloride 0.9% 1, 1200 700 000 ml @ 100 mls/hr IV . Q10H STA Rx#:[id number] Oral 240 300 Other: Voiding Method Toilet Toilet # Voids 1 1 - Exam Constitutional: vital signs stable, Not in acute distress, pleasant, conversant Neck: Supple, no thyromegally, positive JVD, no carotid bruits Lungs: Good breath sounds bilaterally, fine inspiratory rales at lung bases bilaterally otherwise clear to auscultation , normal respiratory effort Cardiovascular: Regular rate and rhythm, no murmurs, no gallops, no rubs, no peripheral edema Gastrointestinal: Soft, no tenderness to palpation, no palpable hepatosplenomegally, bowel sounds positive Extremities: No digital cyanosis or clubbing, peripheral pulses palpable and equal over bilateral radial arteries and dorsalis pedis artery, no calf muscle tenderness Psych: Alert, oriented to place, person and time, appropriate affect, intact judgment - Labs CBC & Chem 7: 06/15/17 04:39 06/15/17 04:39 Labs: Abnormal Lab Results - Last 24 Hours (Table) 06/14/17 06/14/17 06/14/17 Range/Units 13:42 13:42 13:42 WBC 21.7 H (3.8-10.6) k/uL RBC (3.80-5.40) m/uL Lymphocytes # (Manual) 8.25 H (1.0-4.8) k/uL Eosinophils # (Manual) 6.73 H (0-0.7) k/uL ESR (0-20) mm/hr INR (<1.2) D-Dimer (<0.60) mg/L FEU Sodium 134 L (137-145) mmol/L Chloride 96 L (98-107) mmol/L Carbon Dioxide (22-30) mmol/L Glucose 143 H (74-99) mg/dL POC Glucose (mg/dL) (75-99) mg/dL Calcium (8.4-10.2) mg/dL AST 53 H (14-36) U/L CK-MB (CK-2) 9.7 H* (0.0-2.4) ng/mL Troponin I 1.920 H* (0.000-0.034) ng/mL C-Reactive Protein (<10.0) mg/L HDL Cholesterol (40-60) mg/dL Ur Specific Severance (1.001-1.035) Urine Protein (Negative) Urine Ketones (Negative) Urine Blood (Negative) Urine Opiates Screen (NotDetected) 06/14/17 06/14/17 06/14/17 Range/Units 13:42 13:42 16:00 WBC (3.8-10.6) k/uL RBC (3.80-5.40) m/uL Lymphocytes # (Manual) (1.0-4.8) k/uL Eosinophils # (Manual) (0-0.7) k/uL ESR 41 H (0-20) mm/hr INR 1.2 H (<1.2) D-Dimer 0.81 H (<0.60) mg/L FEU Sodium (137-145) mmol/L Chloride (98-107) mmol/L Carbon Dioxide (22-30) mmol/L Glucose (74-99) mg/dL POC Glucose (mg/dL) (75-99) mg/dL Calcium (8.4-10.2) mg/dL AST (14-36) U/L CK-MB (CK-2) (0.0-2.4) ng/mL Troponin I (0.000-0.034) ng/mL C-Reactive Protein 58.0 H (<10.0) mg/L HDL Cholesterol (40-60) mg/dL Ur Specific Severance (1.001-1.035) Urine Protein (Negative) Urine Ketones (Negative) Urine Blood (Negative) Urine Opiates Screen (NotDetected) 06/14/17 06/14/17 06/14/17 Range/Units 17:33 17:33 17:47 WBC (3.8-10.6) k/uL RBC (3.80-5.40) m/uL Lymphocytes # (Manual) (1.0-4.8) k/uL Eosinophils # (Manual) (0-0.7) k/uL ESR (0-20) mm/hr INR (<1.2) D-Dimer (<0.60) mg/L FEU Sodium (137-145) mmol/L Chloride (98-107) mmol/L Carbon Dioxide (22-30) mmol/L Glucose (74-99) mg/dL POC Glucose (mg/dL) 101 H (75-99) mg/dL Calcium (8.4-10.2) mg/dL AST (14-36) U/L CK-MB (CK-2) (0.0-2.4) ng/mL Troponin I (0.000-0.034) ng/mL C-Reactive Protein (<10.0) mg/L HDL Cholesterol (40-60) mg/dL Ur Specific Severance >1.050 H (1.001-1.035) Urine Protein Trace H (Negative) Urine Ketones 2+ H (Negative) Urine Blood Moderate H (Negative) Urine Opiates Screen Detected H (NotDetected) 06/14/17 06/14/17 06/14/17 Range/Units 19:19 19:19 19:19 WBC 20.0 H (3.8-10.6) k/uL RBC (3.80-5.40) m/uL Lymphocytes # (Manual) 9.40 H (1.0-4.8) k/uL Eosinophils # (Manual) 3.80 H (0-0.7) k/uL ESR (0-20) mm/hr INR (<1.2) D-Dimer (<0.60) mg/L FEU Sodium 135 L (137-145) mmol/L Chloride (98-107) mmol/L Carbon Dioxide (22-30) mmol/L Glucose 155 H (74-99) mg/dL POC Glucose (mg/dL) (75-99) mg/dL Calcium (8.4-10.2) mg/dL AST (14-36) U/L CK-MB (CK-2) 9.7 H* (0.0-2.4) ng/mL Troponin I 2.230 H* (0.000-0.034) ng/mL C-Reactive Protein (<10.0) mg/L HDL Cholesterol (40-60) mg/dL Ur Specific Severance (1.001-1.035) Urine Protein (Negative) Urine Ketones (Negative) Urine Blood (Negative) Urine Opiates Screen (NotDetected) 06/14/17 06/15/17 06/15/17 Range/Units 21:11 01:50 04:39 WBC (3.8-10.6) k/uL RBC (3.80-5.40) m/uL Lymphocytes # (Manual) (1.0-4.8) k/uL Eosinophils # (Manual) (0-0.7) k/uL ESR (0-20) mm/hr INR (<1.2) D-Dimer (<0.60) mg/L FEU Sodium (137-145) mmol/L Chloride (98-107) mmol/L Carbon Dioxide 20 L (22-30) mmol/L Glucose 143 H (74-99) mg/dL POC Glucose (mg/dL) 152 H (75-99) mg/dL Calcium 8.3 L (8.4-10.2) mg/dL AST (14-36) U/L CK-MB (CK-2) 9.0 H* (0.0-2.4) ng/mL Troponin I 1.680 H* (0.000-0.034) ng/mL C-Reactive Protein (<10.0) mg/L HDL Cholesterol 31 L (40-60) mg/dL Ur Specific Severance (1.001-1.035) Urine Protein (Negative) Urine Ketones (Negative) Urine Blood (Negative) Urine Opiates Screen (NotDetected) 06/15/17 06/15/17 06/15/17 Range/Units 04:39 04:39 07:18 WBC (3.8-10.6) k/uL RBC 3.59 L (3.80-5.40) m/uL Lymphocytes # (Manual) (1.0-4.8) k/uL Eosinophils # (Manual) (0-0.7) k/uL ESR (0-20) mm/hr INR 1.2 H (<1.2) D-Dimer (<0.60) mg/L FEU Sodium (137-145) mmol/L Chloride (98-107) mmol/L Carbon Dioxide (22-30) mmol/L Glucose (74-99) mg/dL POC Glucose (mg/dL) 115 H (75-99) mg/dL Calcium (8.4-10.2) mg/dL AST (14-36) U/L CK-MB (CK-2) (0.0-2.4) ng/mL Troponin I (0.000-0.034) ng/mL C-Reactive Protein (<10.0) mg/L HDL Cholesterol (40-60) mg/dL Ur Specific Severance (1.001-1.035) Urine Protein (Negative) Urine Ketones (Negative) Urine Blood (Negative) Urine Opiates Screen (NotDetected) Assessment and Plan Assessment: 66-year-old female with history of intermittent asthma and hypothyroid, presented with 1-2 week history of orthopnea, exertional dyspnea, and generalized weakness and malaise. She reported that she is healthy at baseline , however she had flulike symptoms in early May lasted for 2 weeks and then within a week or 2 later she started having symptoms of generalized malaise weakness, dyspepsia, exertional dyspnea, and orthopnea. She denies any chest pain. In the ER further workup including imaging with CAT scan of the chest suggested moderate to large pericardial effusion, labs showed elevated cardiac biomarkers, clinical picture suggestive of of left ventricular heart failure, along with EKG showing frequent PVCs. This is suggestive of myopericarditis however she denies any chest pain or any pleuritic chest pain. Later 2-D echocardiogram was performed which showed preserved left ventricular ejection fraction, however showed large moderate pericardial effusion with collapse of the right atrium and impeding tamponade . Cardiothoracic surgery evaluated the patient and agreed to schedule her for a pericardial window on Saturday, 2017 they will follow up closely in case she would require it at an earlier time. Patient admitted to the ICU for close monitoring. She was started on prednisone and colchicine due to intolerance of NSAIDs with her history of dyspepsia. Continues to have normal blood pressure however with tachycardia. Plan: # Probable myocarditis (new onset exertional dyspnea, EKG changes with frequent PVCs, elevated cardiac biomarkers) #Moderate to large Pericardial secondary to above and bilateral small pleural effusion, with collapse of the right atrium Patient with history of dyspepsia, currently on PPI avoid NSAIDs on prednisone 30 mg for 2 weeks and colchicine 0.6 mg daily for 3 months for myocarditis MELECIO negative 2-D echocardiogram results reviewed showed preserved left ventricular ejection fraction with moderate to large pericardial effusion and collapse of the right atrium Cardiothoracic surgery planning on pericardial window on 06/17/2017 Continue patient care in the ICU for close monitoring of vital signs Elevated troponin secondary to myocarditis Elevated ESR and CRP #Leukocytosis, this is resolved now Most likely reactive Afebrile #Hypothyroidism Currently stable Continue with levothyroxine #Dyspepsia Continue with Protonix twice a day #DVT prophylaxis Heparin subcu 3 times a day Continue patient care in the ICU, await pericardial window.
[2017-06-15 14:40] LABS: Hemoglobin A1C 5.4 % (4.0-6.0)
[2017-06-15 18:09] LABS: Glucose,Whole Blood 133 mg/dL (75-99)
[2017-06-15 20:34] LABS: Glucose,Whole Blood 171 mg/dL (75-99)
[2017-06-16] MEDS: HEPARIN SODIUM,PORCINE 5,000 UNIT/ML 1 ML VIAL SQ SCH ×3 (00:45→17:06)
[2017-06-16 04:53] LABS: HCT 34.6 % (34.0-46.0); HGB 11.4 gm/dL (11.4-16.0); MCH 32.4 pg (25.0-35.0); MCV 98.2 fL (80.0-100.0); Mean Platelet Volume 7.8; Platelet Count 229 k/uL (150-450); RBC 3.52 m/uL (3.80-5.40); RDW 13.3 % (11.5-15.5)
[2017-06-16 05:08] LABS: Calcium 8.5 mg/dL (8.4-10.2); Magnesium 2.4 mg/dL (1.6-2.3); Phosphorus 3.2 mg/dL (2.5-4.5)
[2017-06-16 05:34] LABS: Eosinophils # (M) 2.47 k/uL (0-0.7); Lymphocytes # (M) 5.72 k/uL (1.0-4.8); Monocytes # (M) 0.26 k/uL (0-1.0); Neutrophils # (M) 4.68 k/uL (1.3-7.7); Neutrophils % (M) 36 %; Nucleated Red Blood Cells 0 /100 WBC (0-0); Total Cells Counted 200
[2017-06-16] MEDS: LEVOTHYROXINE 50 MCG TAB PO SCH (06:29)
[2017-06-16 06:34] LABS: Glucose,Whole Blood 87 mg/dL (75-99)
[2017-06-16] MEDS: INSULIN ASPART 100 UNIT/ML 1 ML 10 ML VIAL SQ SCH ×4 (06:34→20:50)
--- NOTE | 2017-06-16 06:37 | XR ---
EXAMINATION TYPE: XR chest 1V portable DATE OF EXAM: 06/16/2017 HISTORY: pericardial effusion. REFERENCE: Previous study dated 06/15/2017. FINDINGS: The heart is enlarged. There are bilateral effusions with concomitant basilar airspace dise ase, either representing atelectasis or pneumonia. There is vascular congestion without shanae edema. IMPRESSION: NO SIGNIFICANT INTERVAL CHANGE IN THE APPEARANCE OF THE CHEST.
[2017-06-16] MEDS: SYMBICORT 80-4.5 MCG INHALER INHALATION SCH (07:51)
[2017-06-16] MEDS: ASPIRIN 81 MG PO SCH (08:19)
[2017-06-16] MEDS: predniSONE 10 MG TAB PO SCH (08:20)
[2017-06-16] MEDS: COLCHICINE 0.6 MG EACH PO SCH (08:20)
--- NOTE | 2017-06-16 08:57 | PN ---
PROGRESS NOTE Mrs. Thomas is a 66-year-old female who presented with symptoms of progressive dyspnea, underwent acute CT scan that revealed evidence of pericardial effusion that was documented on her echocardiogram. That was [id number] in size and she is scheduled to undergo pericardial window tomorrow. She is feeling well this morning. Her breathing has been stable. She is denying any chest pain. She denies any dizziness. She continues to be on aspirin 81 mg daily, colchicine, prednisone, levothyroxine. PHYSICAL EXAMINATION: Blood pressure 120/60 with a heart rate in the 90s. LUNGS: With few crackles at the bases. HEART: Regular rate and rhythm S1, S2, plus systolic murmur. ABDOMEN: Soft, nontender. EXTREMITIES: No edema. LAB DATA: BUN and creatinine of 18 and 0.9, potassium 4.0, hemoglobin of 11.4. IMPRESSION: 1. Pericardial effusion of unclear etiology. Probable viral pericarditis. The size of the effusion is moderate to larger. 2. Progressive dyspnea. RECOMMENDATION: We will continue present therapy. She is scheduled to undergo pericardial window tomorrow and depending on her progress, further recommendations will be made. MMODL / IJN: [id number] /
--- NOTE | 2017-06-16 10:25 | P.PN ---
Subjective Progress Note Date: 06/16/17 Principal diagnosis: Pericardial effusion Progress note dated 06/16/2017 This is a 65-year-old female with a diagnosis of possible viral myocarditis with pericardial effusion. She also has a history of asthma pneumonia hypothyroidism and elevated troponins. Cardiothoracic surgery has been consulted for pericardial window. Apparently will be done this week. She is stable otherwise. Chest x-ray shows cardiomegaly and small effusions with infiltrates or atelectasis at the lung bases. She is clinically stable though. She's not receiving any supplemental oxygen or any IV fluids. She probably is well enough and stable enough to be transferred out to [address] [place] [address]. She denies pain. She states that she is intermittently short of breath but just very mildly so. No coughing. No wheezing. No phlegm production. No fever chills nausea vomiting or diarrhea. No chest pain chest pressure or palpitations. Objective - Vital Signs Vital signs: Vital Signs Temp 98.0 F 06/16/17 08:00 Pulse 100 06/16/17 10:00 Resp 16 06/16/17 10:00 BP 111/75 06/16/17 10:00 Pulse Ox 95 06/16/17 10:00 Intake & Output 06/15/17 06/16/17 06/16/17 18:59 06:59 18:59 Intake Total 1300 150 150 Output Total 200 300 160 Balance 1100 -150 -10 Weight 61 kg 61 kg 62 kg Intake: IV 700 Sodium Chloride 0.9% 1, 700 000 ml @ 100 mls/hr IV . Q10H STA Rx#:[id number] Oral 600 150 150 Output: Urine 200 300 160 Other: Voiding Method Toilet Toilet Toilet # Voids 1 1 1 # Bowel Movements 1 0 - Exam No acute distress, oriented 3. HEENT examination is grossly unremarkable. Mucous membranes are moist. No oral lesions. Neck supple. Full range of motion. No adenopathy thyromegaly or neck vein distention. Cardiovascular examination reveals regular rhythm rate. S1-S2 normal. No S3 or S4. No discernible murmur noted. Lungs reveal mostly clear breath sounds. A few scattered mild crackles at the bases. No wheezes. No rhonchi. Abdomen soft bowel sounds are heard. No masses or tenderness. Extremities are intact. No cyanosis clubbing or edema. Skin is without rash or lesion. Neurologic examination is brief but nonfocal. - Labs CBC & Chem 7: 06/16/17 04:41 06/16/17 04:41 Labs: Abnormal Lab Results - Last 24 Hours (Table) 06/15/17 06/15/17 06/16/17 Range/Units 18:06 20:31 04:41 WBC 13.0 H (3.8-10.6) k/uL RBC 3.52 L (3.80-5.40) m/uL Lymphocytes # (Manual) 5.72 H (1.0-4.8) k/uL Eosinophils # (Manual) 2.47 H (0-0.7) k/uL BUN (7-17) mg/dL Glucose (74-99) mg/dL POC Glucose (mg/dL) 133 H 171 H (75-99) mg/dL Magnesium (1.6-2.3) mg/dL 06/16/17 Range/Units 04:41 WBC (3.8-10.6) k/uL RBC (3.80-5.40) m/uL Lymphocytes # (Manual) (1.0-4.8) k/uL Eosinophils # (Manual) (0-0.7) k/uL BUN 18 H (7-17) mg/dL Glucose 100 H (74-99) mg/dL POC Glucose (mg/dL) (75-99) mg/dL Magnesium 2.4 H (1.6-2.3) mg/dL Assessment and Plan Assessment: Assessment Possible viral myocarditis with pericardial effusion History of asthma History of pneumonia History of hypothyroidism Elevated troponins Plan: Plan dated 06/15/2017 Cardiothoracic surgery to see patient. Additional recommendations and suggestions are forthcoming. Labs x-rays a medications are reviewed. Prognosis is guarded. We'll continue to follow. Plan dated 06/16/2017 The patient seemed be doing relatively well. We'll have cardiothoracic surgery see the patient tomorrow. Additional recommendations and suggestions are forthcoming. She seems to have stabilized out. Not receiving any supplemental oxygen or IV fluids. Additional recommendations and suggestions are forthcoming. Prognosis is guarded. Critical care time is 31 minutes Time with Patient: Greater than 30
[2017-06-16] MEDS: PANTOPRAZOLE 40 MG TABLET PO SCH ×2 (11:36→17:06)
[2017-06-16] MEDS: IPRATROPIUM-ALBUTEROL 3 ML NEB INHALATION PRN ×3 (11:53→20:00)
[2017-06-16 12:18] LABS: Glucose,Whole Blood 119 mg/dL (75-99)
--- NOTE | 2017-06-16 13:02 | P.PN ---
Subjective Progress Note Date: 06/16/17 Principal diagnosis: Large pericardial effusion, history of thyroid disorder, history of asthma, history of recent upper respiratory infection, elevated troponins as high as 2.230. The patient is lying in bed with her head elevated. She is in no acute distress. She reports that she has short episodes of shortness of breath throughout the night but relates that more to anxiety. Denies any complaints of chest pain or pressure. Bedside monitor showing normal sinus rhythm heart rate 98. Objective - Vital Signs Vital signs: Vital Signs Temp 98.0 F 06/16/17 08:00 Pulse 99 06/16/17 12:27 Resp 20 06/16/17 12:27 BP 137/66 06/16/17 12:27 Pulse Ox 94 L 06/16/17 12:27 Intake & Output 06/15/17 06/16/17 06/16/17 18:59 06:59 18:59 Intake Total 1300 150 450 Output Total 200 300 460 Balance 1100 -150 -10 Weight 61 kg 61 kg 62 kg Intake: IV 700 Sodium Chloride 0.9% 1, 700 000 ml @ 100 mls/hr IV . Q10H STA Rx#:[id number] Oral 600 150 450 Output: Urine 200 300 460 Other: Voiding Method Toilet Toilet Toilet # Voids 1 1 1 # Bowel Movements 1 0 - Constitutional General appearance: Present: cooperative, no acute distress - EENT ENT: Present: hearing grossly normal - Neck Details: JVD present bilaterally, neck supple, no lymphadenopathy. 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 Respirations are symmetrical and unlabored. Oxygen saturations are 95% on room air. - Cardiovascular Details: Regular rhythm and rate. S1 and S2 present, negative for his recovery, gallop or murmur. Bedside telemetry showing normal sinus rhythm heart rate 98. No edema present. Knee-high SCDs in place to her bilateral lower extremities. - Gastrointestinal Gastrointestinal Comment(s): Abdomen soft, nontender nondistended. Active bowel sounds all 4 abdominal quadrants. Tolerating oral intake. - Genitourinary Genitourinary Comment(s): Voiding clear yellow urine. Adequate urine output. - Integumentary Integumentary Comment(s): Skin is warm and dry. No clubbing or cyanosis present. No rashes or abnormal pigmentation. - Neurologic Neurologic: Present: CNII-XII intact - Musculoskeletal Musculoskeletal: Present: gait normal, strength equal bilaterally - Psychiatric Psychiatric: Present: A&O x's 3, appropriate affect, intact judgment & insight - Labs CBC & Chem 7: 06/16/17 04:41 06/16/17 04:41 Labs: Abnormal Lab Results - Last 24 Hours (Table) 06/15/17 06/15/17 06/16/17 Range/Units 18:06 20:31 04:41 WBC 13.0 H (3.8-10.6) k/uL RBC 3.52 L (3.80-5.40) m/uL Lymphocytes # (Manual) 5.72 H (1.0-4.8) k/uL Eosinophils # (Manual) 2.47 H (0-0.7) k/uL BUN (7-17) mg/dL Glucose (74-99) mg/dL POC Glucose (mg/dL) 133 H 171 H (75-99) mg/dL Magnesium (1.6-2.3) mg/dL 06/16/17 06/16/17 Range/Units 04:41 12:15 WBC (3.8-10.6) k/uL RBC (3.80-5.40) m/uL Lymphocytes # (Manual) (1.0-4.8) k/uL Eosinophils # (Manual) (0-0.7) k/uL BUN 18 H (7-17) mg/dL Glucose 100 H (74-99) mg/dL POC Glucose (mg/dL) 119 H (75-99) mg/dL Magnesium 2.4 H (1.6-2.3) mg/dL - Imaging and Cardiology Chest x-ray: report reviewed, image reviewed Assessment and Plan (1) History of asthma Current Visit: Yes Status: Acute Code(s): Z87.09 - PERSONAL HISTORY OF OTHER DISEASES OF THE RESPIRATORY SYSTEM SNOMED Code(s): 044526016 (2) Thyroid disorder Current Visit: Yes Status: Acute Code(s): E07.9 - DISORDER OF THYROID, UNSPECIFIED SNOMED Code(s): 92324366 (3) History of upper respiratory infection Current Visit: Yes Status: Acute Code(s): Z87.09 - PERSONAL HISTORY OF OTHER DISEASES OF THE RESPIRATORY SYSTEM SNOMED Code(s): 128128527 (4) Elevated troponin Current Visit: Yes Status: Acute Code(s): R74.8 - ABNORMAL LEVELS OF OTHER SERUM ENZYMES SNOMED Code(s): 202077807 (5) Pericardial effusion Current Visit: Yes Status: Acute Code(s): I31.3 - PERICARDIAL EFFUSION ( NONINFLAMMATORY) SNOMED Code(s): 197632087 Plan: 1. Continues aspirin, colchicine, and heparin subcu. 2. Pulmonary management recommendations per Dr. Ventura. 3. Nothing by mouth after midnight. 4. Obtain consent for pericardial window. She is scheduled for pericardial window tomorrow morning 06/17/[address] Mcdonald. 5. Medical management per primary care recommendations. 6. More recommendations to follow based on the patient's clinical course. Time with Patient: Greater than 30
[2017-06-16] MEDS ORDERED: MORPHINE ORAL SOLN 10 MG/5 ML CUP PO PRN (13:40)
--- NOTE | 2017-06-16 14:10 | P.PN ---
Subjective Progress Note Date: 06/16/17 Principal diagnosis: follow-up on patient for probable myocarditis with pericardial effusion Patient seen and examined today, continues to be comfortable denies any chest pain, or trouble breathing. Tolerating diet. Reporting some insomnia. Objective - Vital Signs Vital signs: Vital Signs Temp 98.0 F 06/16/17 08:00 Pulse 99 06/16/17 12:27 Resp 20 06/16/17 12:27 BP 137/66 06/16/17 12:27 Pulse Ox 94 L 06/16/17 12:27 Intake & Output 06/15/17 06/16/17 06/16/17 18:59 06:59 18:59 Intake Total 1300 150 450 Output Total 200 300 460 Balance 1100 -150 -10 Weight 61 kg 61 kg 62 kg Intake: IV 700 Sodium Chloride 0.9% 1, 700 000 ml @ 100 mls/hr IV . Q10H STA Rx#:[id number] Oral 600 150 450 Output: Urine 200 300 460 Other: Voiding Method Toilet Toilet Toilet # Voids 1 1 1 # Bowel Movements 1 0 - Exam Constitutional: vital signs stable, Not in acute distress, pleasant, conversant Neck: Supple, no thyromegally, positive JVD, no carotid bruits Lungs: Good breath sounds bilaterally, fine inspiratory rales at lung bases bilaterally , and expiratory rhonchi normal respiratory effort Cardiovascular: Regular rate and rhythm, no murmurs, no gallops, no rubs, no peripheral edema Gastrointestinal: Soft, no tenderness to palpation, no palpable hepatosplenomegally, bowel sounds positive Extremities: No digital cyanosis or clubbing, peripheral pulses palpable and equal over bilateral radial arteries and dorsalis pedis artery, no calf muscle tenderness Psych: Alert, oriented to place, person and time, appropriate affect, intact judgment - Labs CBC & Chem 7: 06/16/17 04:41 06/16/17 04:41 Labs: Abnormal Lab Results - Last 24 Hours (Table) 06/15/17 06/15/17 06/16/17 Range/Units 18:06 20:31 04:41 WBC 13.0 H (3.8-10.6) k/uL RBC 3.52 L (3.80-5.40) m/uL Lymphocytes # (Manual) 5.72 H (1.0-4.8) k/uL Eosinophils # (Manual) 2.47 H (0-0.7) k/uL BUN (7-17) mg/dL Glucose (74-99) mg/dL POC Glucose (mg/dL) 133 H 171 H (75-99) mg/dL Magnesium (1.6-2.3) mg/dL 06/16/17 06/16/17 Range/Units 04:41 12:15 WBC (3.8-10.6) k/uL RBC (3.80-5.40) m/uL Lymphocytes # (Manual) (1.0-4.8) k/uL Eosinophils # (Manual) (0-0.7) k/uL BUN 18 H (7-17) mg/dL Glucose 100 H (74-99) mg/dL POC Glucose (mg/dL) 119 H (75-99) mg/dL Magnesium 2.4 H (1.6-2.3) mg/dL Assessment and Plan Assessment: 66-year-old female with history of intermittent asthma and hypothyroid, presented with 1-2 week history of orthopnea, exertional dyspnea, and generalized weakness and malaise. She reported that she is healthy at baseline , however she had flulike symptoms in early May lasted for 2 weeks and then within a week or 2 later she started having symptoms of generalized malaise weakness, dyspepsia, exertional dyspnea, and orthopnea. She denies any chest pain. In the ER further workup including imaging with CAT scan of the chest suggested moderate to large pericardial effusion, labs showed elevated cardiac biomarkers, clinical picture suggestive of of left ventricular heart failure, along with EKG showing frequent PVCs. This is suggestive of myopericarditis however she denies any chest pain or any pleuritic chest pain. Later 2-D echocardiogram was performed which showed preserved left ventricular ejection fraction, however showed large moderate pericardial effusion with collapse of the right atrium and impeding tamponade . Cardiothoracic surgery evaluated the patient and agreed to schedule her for a pericardial window on Saturday, 2017 they will follow up closely in case she would require it at an earlier time. Patient admitted to the ICU for close monitoring. She was started on prednisone and colchicine due to intolerance of NSAIDs with her history of dyspepsia. Continues to have normal blood pressure however with tachycardia. Plan: # Probable myocarditis (new onset exertional dyspnea, EKG changes with frequent PVCs, elevated cardiac biomarkers) #Moderate to large Pericardial secondary to above and bilateral small pleural effusion, with collapse of the right atrium Patient with history of dyspepsia, currently on PPI avoid NSAIDs on prednisone 30 mg for 2 weeks and colchicine 0.6 mg daily for 3 months for myocarditis 2-D echocardiogram results reviewed showed preserved left ventricular ejection fraction with moderate to large pericardial effusion and collapse of the right atrium Cardiothoracic surgery planning on pericardial window on 06/17/2017 Continue patient care in the ICU for close monitoring of vital signs Elevated troponin secondary to myocarditis Elevated ESR and CRP #Leukocytosis, this is resolved now Most likely reactive Afebrile #Hypothyroidism Currently stable Continue with levothyroxine #Dyspepsia Continue with Protonix twice a day #DVT prophylaxis Heparin subcu 3 times a day Insomnia When necessary Ambien Continue patient care in the ICU, await pericardial window on Saturday06/17/17.
[2017-06-16 16:57] LABS: Glucose,Whole Blood 173 mg/dL (75-99)
[2017-06-16 20:50] LABS: Glucose,Whole Blood 105 mg/dL (75-99)
[2017-06-16] MEDS: ZOLPIDEM 10 MG TAB PO PRN (22:36)
[2017-06-17] MEDS: HEPARIN SODIUM,PORCINE 5,000 UNIT/ML 1 ML VIAL SQ SCH ×3 (00:30→16:25)
[2017-06-17] MEDS: INSULIN ASPART 100 UNIT/ML 1 ML 10 ML VIAL SQ SCH ×3 (05:51→20:32)
[2017-06-17] MEDS: LACTATED RINGERS 1,000 ML IV SCH ×2 (05:51→11:33)
[2017-06-17 05:54] LABS: Calcium 8.5 mg/dL (8.4-10.2); Magnesium 2.3 mg/dL (1.6-2.3); Phosphorus 3.9 mg/dL (2.5-4.5); Potassium 4.3 mmol/L (3.5-5.1)
[2017-06-17 05:55] LABS: HCT 32.1 % (34.0-46.0); HGB 10.8 gm/dL (11.4-16.0); MCH 32.4 pg (25.0-35.0); MCHC 33.6 g/dL (31.0-37.0); MCV 96.4 fL (80.0-100.0); Mean Platelet Volume 7.2; Platelet Count 235 k/uL (150-450); RBC 3.33 m/uL (3.80-5.40); RDW 13.2 % (11.5-15.5); WBC 10.8 k/uL (3.8-10.6)
[2017-06-17] MEDS: PANTOPRAZOLE 40 MG TABLET PO SCH ×2 (05:56→16:25)
[2017-06-17] MEDS: predniSONE 10 MG TAB PO SCH (05:56)
[2017-06-17] MEDS: LEVOTHYROXINE 50 MCG TAB PO SCH (05:56)
[2017-06-17] MEDS: ASPIRIN 81 MG PO SCH (05:56)
[2017-06-17 06:10] LABS: Glucose,Whole Blood 86 mg/dL (75-99)
[2017-06-17] MEDS ORDERED: IV FLUID CONTINUATION 1,000 ML IV ONE (06:45)
[2017-06-17] MEDS ORDERED: ONDANSETRON 4 MG/2 ML VIAL IVP ONE (07:01)
[2017-06-17] MEDS ORDERED: CLINDAMYCIN 600 MG in DEXTROSE 5% IN WATER 50 ML IVPB ONE ×2 (07:30)
[2017-06-17] MEDS: SYMBICORT 80-4.5 MCG INHALER INHALATION SCH (07:48)
[2017-06-17 08:04] LABS: Eosinophils # (M) 1.08 k/uL (0-0.7); Lymphocytes # (M) 5.08 k/uL (1.0-4.8); Monocytes # (M) 0.32 k/uL (0-1.0); Neutrophils # (M) 4.43 k/uL (1.3-7.7); Neutrophils % (M) 41 %; Nucleated Red Blood Cells 0 /100 WBC (0-0); Total Cells Counted 200
[2017-06-17] MEDS ORDERED: GLYCOPYRROLATE 0.2 MG/ML 2 ML VIAL ONE (08:07)
[2017-06-17] MEDS ORDERED: SUCCINYLCHOLINE CHLORIDE 100 MG/5 ML SYR IV ONE (08:07)
[2017-06-17] MEDS ORDERED: PHENYLEPHRINE-0.9% NACL SYG 1 MG/10 ML SYRINGE ONE (08:07)
[2017-06-17] MEDS ORDERED: NEOSTIGMINE 1 MG/ML 10 ML VIAL ONE (08:07)
[2017-06-17] MEDS ORDERED: ETOMIDATE 2 MG/ML 10 ML VIAL ONE (08:07)
[2017-06-17] MEDS ORDERED: LIDOCAINE 1% INJ 10MG/ML (20 ML MDV) ONE (08:07)
[2017-06-17] MEDS ORDERED: fentaNYL (PF) 50 MCG/ML 2 ML AMP ONE (08:07)
[2017-06-17] MEDS ORDERED: PROPOFOL 10 MG/ML 20 ML VIAL IV ONE (08:07)
[2017-06-17] MEDS ORDERED: ROCURONIUM BROMIDE 10 MG/ML 10 ML VIAL IV ONE (08:07)
[2017-06-17 08:15] LABS: Anisocytosis (M) Present
--- NOTE | 2017-06-17 09:22 | OP ---
OPERATIVE REPORT DATE OF OPERATION: 06/17/2017. ATTENDING SURGEON: Dr. Danilo Mcdonald PREOPERATIVE DIAGNOSIS: Large pericardial effusion. POSTOPERATIVE: Large pericardial effusion. PROCEDURE: Subxiphoid pericardial window. ANESTHESIA: General. BLOOD LOSS: Blood loss is minimal. SUMMARY: Patient was brought to the operating room, placed in supine position. administration of a general endotracheal anesthetic, placement of arterial line, adequate IV access. The chest and abdomen were prepped and draped in normal sterile fashion using Betadine paint and sterile towels. A 2 to 3 cm incision was made over the xiphoid and the linea alba was divided. The subxiphoid space was dissected free. The pericardium was identified. An opening in the pericardium was made, serous fluid was returned and 60 mL of fluid was sent to pathology for full studies. A piece of pericardium the size of a quarter was excised and sent to pathology also. A #32-Kosovan chest tube was placed intrapericardial and brought out through a separate stab incision. The incision was then closed in 3 layers. Skin glue was applied. No complications. Patient tolerated the procedure well, was extubated and taken to the recovery room in stable condition. MMODL / IJN: [id number] /
[2017-06-17] MEDS ORDERED: fentaNYL (PF) 50 MCG/ML 2 ML AMP IVP ONE (09:32)
--- NOTE | 2017-06-17 09:49 | XR ---
EXAMINATION TYPE: XR chest 1V portable DATE OF EXAM: 06/17/2017 COMPARISON: Prior chest x-ray 06/16/2017 HISTORY: Chest tube, status post pericardial window TECHNIQUE: Single frontal view of the chest is obtained. FINDINGS: Interval placement of the chest tube present in the midline. Heart remains enlarged. No ev ident pneumothorax. Bibasilar increased density persists, there is blunting of the costophrenic angle s. Interstitium and central vascularity are mildly prominent. IMPRESSION: Interval chest tube placement. There may be a component of pulmonary venous hypertension and interstitial edema, basilar effusions and associated atelectasis versus confluent edema, pneumon ia not excluded, follow-up recommended
[2017-06-17] MEDS: COLCHICINE 0.6 MG EACH PO SCH (11:33)
[2017-06-17] MEDS ORDERED: HYDROcodone/APAP 5-325MG 1 EACH TAB PO PRN (11:54)
[2017-06-17 12:04] LABS: Glucose,Whole Blood 119 mg/dL (75-99)
--- NOTE | 2017-06-17 14:16 | P.PN ---
Subjective Progress Note Date: 06/17/17 Principal diagnosis: Pericardial effusion This is a 66-year-old female who presented to the hospital with symptoms of progressive dyspnea. She underwent a CAT scan which revealed evidence of a pericardial effusion, this was also documented on echocardiogram. This was moderate to large in size, today she underwent a pericardial window, continues to have drainage tube in place. Patient was a little groggy but denied any chest discomfort, breathing has been stable, no dizziness or lightheadedness. Blood pressure 128/70 with a heart rate in the 90s, 95% on 3 L of oxygen. White blood cell count 10.8, hemoglobin 10.8, platelet count 235. Sodium 141, potassium 4.3, BUN 18, creatinine 0.9, magnesium 2.3. Objective - Vital Signs Vital signs: Vital Signs Temp 97.2 F L 06/17/17 09:06 Pulse 98 06/17/17 09:50 Resp 18 06/17/17 09:50 BP 128/71 06/17/17 09:50 Pulse Ox 95 06/17/17 09:50 Intake & Output 06/16/17 06/17/17 06/17/17 18:59 06:59 18:59 Intake Total 930 310 914 Output Total 460 402 Balance 470 310 512 Weight 62 kg 61.5 kg Intake: IV 210 554 Invasive Line 3 10 Intake, IV Titration 0 100 Amount Lactated Ringers 1,000 ml 0 100 @ 20 mls/hr IV .Q24H [facility] Rx#:[id number] Oral 930 360 Output: Urine 460 400 Estimated Blood Loss 2 Other: Voiding Method Toilet Toilet # Voids 1 1 # Bowel Movements 0 - Exam PHYSICAL EXAMINATION: HEENT: Head is atraumatic, normocephalic. Pupils equal, round. Neck is supple. There is no elevated jugular venous pressure. HEART EXAMINATION: Heart S1 and S2 with systolic murmur is heard midsternal chest tube in place CHEST EXAMINATION: Lungs are clear to auscultation and precussion. No chest wall tenderness is noted on palpation or with deep breathing. ABDOMEN: Soft, nontender. Bowel sounds are heard. No organomegaly noted. EXTREMITIES: 2+ peripheral pulses with no evidence of peripheral edema and no calf tenderness noted. NEUROLOGIC patient is awake, alert and oriented -3. . - Labs CBC & Chem 7: 06/17/17 05:26 04/16/18 05:26 Labs: Abnormal Lab Results - Last 24 Hours (Table) 06/16/17 06/16/17 06/17/17 Range/Units 16:55 20:44 05:26 WBC 10.8 H (3.8-10.6) k/uL RBC 3.33 L (3.80-5.40) m/uL Hgb 10.8 L (11.4-16.0) gm/dL Hct 32.1 L (34.0-46.0) % Lymphocytes # (Manual) 5.08 H (1.0-4.8) k/uL Eosinophils # (Manual) 1.08 H (0-0.7) k/uL BUN (7-17) mg/dL POC Glucose (mg/dL) 173 H 105 H (75-99) mg/dL 06/17/17 06/17/17 Range/Units 05:26 12:02 WBC (3.8-10.6) k/uL RBC (3.80-5.40) m/uL Hgb (11.4-16.0) gm/dL Hct (34.0-46.0) % Lymphocytes # (Manual) (1.0-4.8) k/uL Eosinophils # (Manual) (0-0.7) k/uL BUN 18 H (7-17) mg/dL POC Glucose (mg/dL) 119 H (75-99) mg/dL Assessment and Plan Plan: Assessment and plan #1 pericardial effusion of unclear etiology, status post pericardial window of today. Chest tube remains in place. #2 history of asthma #3 hypothyroidism Plan From cardiology's perspective, we'll continue the patient on her current medications. Weight cytology results of the pericardial fluid. We will continue to follow. DNP note has been reviewed, I agree with a documented findings and plan of care. Patient was seen and examined.
[2017-06-17 14:18] LABS: Appearance,BF Cloudy; Color,BF Yellow; Nucleated Cells, Body Fluid 10160 /uL; RBC, Body Fluid 4080 /uL
[2017-06-17 14:20] LABS: Mononuclear WBC,Body Fluid 11 %; Polynuclear WBC,Body Fluid 1 %; Total Cells Counted,Body Fluid 100
--- NOTE | 2017-06-17 14:55 | P.PN ---
Subjective Progress Note Date: 06/17/17 Principal diagnosis: follow-up on patient for probable myocarditis with pericardial effusion Patient seen and examined today, patient is seen after pericardial window and pericardial tube insertion. Tolerated procedure well. Reports that pain is tolerable. Denies any shortness of breath this time. Denies any fevers or chills. Objective - Vital Signs Vital signs: Vital Signs Temp 96.9 F L 06/17/17 10:20 Pulse 97 06/17/17 10:20 Resp 18 06/17/17 10:20 BP 125/73 06/17/17 10:20 Pulse Ox 94 L 06/17/17 10:20 Intake & Output 06/16/17 06/17/17 06/17/17 18:59 06:59 18:59 Intake Total 930 310 914 Output Total 460 402 Balance 470 310 512 Weight 62 kg 61.5 kg Intake: IV 210 554 Invasive Line 3 10 Intake, IV Titration 0 100 Amount Lactated Ringers 1,000 ml 0 100 @ 20 mls/hr IV .Q24H [facility] Rx#:[id number] Oral 930 360 Output: Urine 460 400 Estimated Blood Loss 2 Other: Voiding Method Toilet Toilet # Voids 1 1 # Bowel Movements 0 - Exam Constitutional: vital signs stable, Not in acute distress, pleasant, conversant Lungs: Good breath sounds bilaterally, fine inspiratory rales at lung bases on the left side only, no rhonchi no wheezes. Chest tube in place just below the xiphoid process Cardiovascular: Regular rate and rhythm, no murmurs, no gallops, no rubs, no peripheral edema Gastrointestinal: Soft, no tenderness to palpation, no palpable hepatosplenomegally, bowel sounds positive Extremities: No digital cyanosis or clubbing, peripheral pulses palpable and equal over bilateral radial arteries and dorsalis pedis artery, no calf muscle tenderness Psych: Alert, oriented to place, person and time, appropriate affect, intact judgment - Labs CBC & Chem 7: 06/17/17 05:26 06/17/17 05:26 Labs: Abnormal Lab Results - Last 24 Hours (Table) 06/16/17 06/16/17 06/17/17 Range/Units 16:55 20:44 05:26 WBC 10.8 H (3.8-10.6) k/uL RBC 3.33 L (3.80-5.40) m/uL Hgb 10.8 L (11.4-16.0) gm/dL Hct 32.1 L (34.0-46.0) % Lymphocytes # (Manual) 5.08 H (1.0-4.8) k/uL Eosinophils # (Manual) 1.08 H (0-0.7) k/uL BUN (7-17) mg/dL POC Glucose (mg/dL) 173 H 105 H (75-99) mg/dL 06/17/17 06/17/17 Range/Units 05:26 12:02 WBC (3.8-10.6) k/uL RBC (3.80-5.40) m/uL Hgb (11.4-16.0) gm/dL Hct (34.0-46.0) % Lymphocytes # (Manual) (1.0-4.8) k/uL Eosinophils # (Manual) (0-0.7) k/uL BUN 18 H (7-17) mg/dL POC Glucose (mg/dL) 119 H (75-99) mg/dL Assessment and Plan Assessment: 66-year-old female with history of intermittent asthma and hypothyroid, presented with 1-2 week history of orthopnea, exertional dyspnea, and generalized weakness and malaise. She reported that she is healthy at baseline , however she had flulike symptoms in early May lasted for 2 weeks and then within a week or 2 later she started having symptoms of generalized malaise weakness, dyspepsia, exertional dyspnea, and orthopnea. She denies any chest pain. In the ER further workup including imaging with CAT scan of the chest suggested moderate to large pericardial effusion, labs showed elevated cardiac biomarkers, clinical picture suggestive of of left ventricular heart failure, along with EKG showing frequent PVCs. This is suggestive of myopericarditis however she denies any chest pain or any pleuritic chest pain. Later 2-D echocardiogram was performed which showed preserved left ventricular ejection fraction, however showed large moderate pericardial effusion with collapse of the right atrium and impeding tamponade . Cardiothoracic surgery evaluated the patient and agreed to schedule her for a pericardial window on Saturday, 2017 they will follow up closely in case she would require it at an earlier time. Patient admitted to the ICU for close monitoring. She was started on prednisone and colchicine due to intolerance of NSAIDs with her history of dyspepsia. Patient continues to have normal blood pressure. Patient has underwent pericardial window chest tube insertion tolerated procedure very well. She will be monitored on stepdown unit further recommendation pending clinical progression. She reports improvement in her breathing overall. Denies any chest pain Plan: # Probable myocarditis (new onset exertional dyspnea, EKG changes with frequent PVCs, elevated cardiac biomarkers) #Moderate to large Pericardial secondary to above and bilateral small pleural effusion, with collapse of the right atrium, status post pericardial window postoperative day 0 Patient with history of dyspepsia, currently on PPI avoid NSAIDs on prednisone 30 mg for 2 weeks and colchicine 0.6 mg daily for 3 months for myocarditis 2-D echocardiogram results reviewed showed preserved left ventricular ejection fraction with moderate to large pericardial effusion and collapse of the right atrium Patient is status post pericardial window tolerated very well Patient to be monitored in the stepdown unit #Leukocytosis, this is resolved now Most likely reactive Afebrile #Hypothyroidism Currently stable Continue with levothyroxine #Dyspepsia Continue with Protonix twice a day #DVT prophylaxis Heparin subcu 3 times a day Insomnia When necessary Ambien Cardiothoracic surgery following, patient will be discharged home once chest tube discontinued.
--- NOTE | 2017-06-17 15:17 | P.PN ---
Subjective Progress Note Date: 06/17/17 On 06/17/2017 the patient underwent a pericardial window. The patient had a large pericardial effusion for which a pericardial window was indicated. The patient underwent the procedure without any complication. There is a pericardial tube in place and has drained approximately 60 mL since this patient 's arrival from the operating room. She is doing well. She has no complaints. She is hemodynamically stable at this point. No cough or sputum production. No chest that is so wheezing. No fever chills or night sweats. No other significant events overnight. The fluid has been sent for microbial cultures and cytology. This possibly related to a viral myocarditis yet the final cytology still pending for now. The pericardial fluid was essentially eosinophilic predominance Objective - Vital Signs Vital signs: Vital Signs Temp 96.9 F L 06/17/17 10:20 Pulse 97 06/17/17 10:20 Resp 18 06/17/17 10:20 BP 125/73 06/17/17 10:20 Pulse Ox 94 L 06/17/17 10:20 Intake & Output 06/16/17 06/17/17 06/17/17 18:59 06:59 18:59 Intake Total 930 310 914 Output Total 460 402 Balance 470 310 512 Weight 62 kg 61.5 kg Intake: IV 210 554 Invasive Line 3 10 Intake, IV Titration 0 100 Amount Lactated Ringers 1,000 ml 0 100 @ 20 mls/hr IV .Q24H [facility] Rx#:[id number] Oral 930 360 Output: Urine 460 400 Estimated Blood Loss 2 Other: Voiding Method Toilet Toilet Toilet # Voids 1 1 # Bowel Movements 0 - Exam No acute distress, oriented 3. HEENT examination is grossly unremarkable. Mucous membranes are moist. No oral lesions. Neck supple. Full range of motion. No adenopathy thyromegaly or neck vein distention. Cardiovascular examination reveals regular rhythm rate. S1-S2 normal. No S3 or S4. No discernible murmur noted. There chest tube within the pericardium is in place without active drainage at this point time Lungs reveal mostly clear breath sounds. A few scattered mild crackles at the bases. No wheezes. No rhonchi. Abdomen soft bowel sounds are heard. No masses or tenderness. Extremities are intact. No cyanosis clubbing or edema. Skin is without rash or lesion. Neurologic examination is brief but nonfocal. - Labs CBC & Chem 7: 06/17/17 05:26 06/17/17 05:26 Labs: Abnormal Lab Results - Last 24 Hours (Table) 06/16/17 06/16/17 06/17/17 Range/Units 16:55 20:44 05:26 WBC 10.8 H (3.8-10.6) k/uL RBC 3.33 L (3.80-5.40) m/uL Hgb 10.8 L (11.4-16.0) gm/dL Hct 32.1 L (34.0-46.0) % Lymphocytes # (Manual) 5.08 H (1.0-4.8) k/uL Eosinophils # (Manual) 1.08 H (0-0.7) k/uL BUN (7-17) mg/dL POC Glucose (mg/dL) 173 H 105 H (75-99) mg/dL 06/17/17 06/17/17 Range/Units 05:26 12:02 WBC (3.8-10.6) k/uL RBC (3.80-5.40) m/uL Hgb (11.4-16.0) gm/dL Hct (34.0-46.0) % Lymphocytes # (Manual) (1.0-4.8) k/uL Eosinophils # (Manual) (0-0.7) k/uL BUN 18 H (7-17) mg/dL POC Glucose (mg/dL) 119 H (75-99) mg/dL Assessment and Plan Plan: Assessment 1 pericardial effusion likely related to viral pericarditis. Status post pericardial window 2 bilateral pleural effusion right more than left 3 chronic bronchial moderate persistent bronchial asthma 4 hypothyroidism Plan Clinical patient is doing better. The patient underwent the procedure without any major complications. Continue daily chest x-rays. Monitor the output from the chest tube. Provide the patient incentive spirometer. Continue the bronchodilators. Early mobility. We'll continue to follow. Awaiting the pleural fluid cytology and cultures. The pleural fluid has an eosinophilic predominance.
[2017-06-17] MEDS: HYDROcodone/APAP 5-325MG 1 EACH TAB PO PRN ×2 (16:24→20:31)
[2017-06-17 16:38] LABS: Glucose,Whole Blood 168 mg/dL (75-99)
[2017-06-17 18:06] LABS: Total Protein, Body Fluid 6900 mg/dL
[2017-06-17 20:23] LABS: Glucose,Whole Blood 135 mg/dL (75-99)
[2017-06-17] MEDS: IPRATROPIUM-ALBUTEROL 3 ML NEB INHALATION PRN (21:11)
[2017-06-18] MEDS: HYDROcodone/APAP 5-325MG 1 EACH TAB PO PRN ×2 (00:13→08:50)
[2017-06-18] MEDS: HEPARIN SODIUM,PORCINE 5,000 UNIT/ML 1 ML VIAL SQ SCH ×3 (00:20→16:51)
[2017-06-18] MEDS: INSULIN ASPART 100 UNIT/ML 1 ML 10 ML VIAL SQ SCH ×5 (03:59→21:12)
[2017-06-18 06:05] LABS: Glucose,Whole Blood 91 mg/dL (75-99)
[2017-06-18 06:10] LABS: HCT 33.9 % (34.0-46.0); HGB 11.3 gm/dL (11.4-16.0); MCH 32.7 pg (25.0-35.0); MCHC 33.3 g/dL (31.0-37.0); MCV 98.2 fL (80.0-100.0); Mean Platelet Volume 7.3; Platelet Count 279 k/uL (150-450); RBC 3.45 m/uL (3.80-5.40); RDW 13.3 % (11.5-15.5); WBC 14.5 k/uL (3.8-10.6)
[2017-06-18 06:26] LABS: Calcium 8.6 mg/dL (8.4-10.2); Potassium 4.5 mmol/L (3.5-5.1)
[2017-06-18] MEDS: PANTOPRAZOLE 40 MG TABLET PO SCH ×2 (06:42→16:51)
[2017-06-18] MEDS: LEVOTHYROXINE 50 MCG TAB PO SCH (06:43)
[2017-06-18 07:17] LABS: Eosinophils # (M) 1.74 k/uL (0-0.7); Lymphocytes # (M) 6.82 k/uL (1.0-4.8); Monocytes # (M) 0.58 k/uL (0-1.0); Neutrophils # (M) 5.37 k/uL (1.3-7.7); Neutrophils % (M) 37 %; Nucleated Red Blood Cells 0 /100 WBC (0-0); Total Cells Counted 100
[2017-06-18 07:18] LABS: Anisocytosis (M) Present
[2017-06-18] MEDS: SYMBICORT 80-4.5 MCG INHALER INHALATION SCH (08:28)
[2017-06-18] MEDS: IPRATROPIUM-ALBUTEROL 3 ML NEB INHALATION PRN ×2 (08:28→21:12)
[2017-06-18] MEDS: COLCHICINE 0.6 MG EACH PO SCH (08:51)
[2017-06-18] MEDS: predniSONE 10 MG TAB PO SCH (08:51)
[2017-06-18] MEDS: ASPIRIN 81 MG PO SCH (08:51)
--- NOTE | 2017-06-18 11:06 | P.PN ---
Subjective Progress Note Date: 06/18/17 Principal diagnosis: Large generalized pericardial effusion. History of hypothyroid, asthma, recent upper respiratory infection, elevated troponins. POD #1 subxiphoid pericardial window with evacuation of approximately 500 mL serous fluid Patient is currently ambulating in the room in no acute distress. Denies pain, shortness of breath. No current complaints. Objective - Vital Signs Vital signs: Vital Signs Temp 97.3 F L 06/18/17 08:00 Pulse 92 06/18/17 08:46 Resp 20 06/18/17 08:00 BP 120/75 06/18/17 08:00 Pulse Ox 93 L 06/18/17 08:31 Intake & Output 06/17/17 06/18/17 06/18/17 18:59 06:59 18:59 Intake Total 1094 180 Output Total 482 85 Balance 612 -85 180 Weight 61 kg Intake: IV 554 Oral 540 180 Output: Chest Tube Drainage 25 85 Chest Tube Mediastinal 25 85 Drainage 55 Chest 55 Urine 400 Estimated Blood Loss 2 Other: Voiding Method Toilet Toilet # Voids 2 - Constitutional General appearance: Present: cooperative, no acute distress - Respiratory Details: Lungs sounds clear bilaterally. Respirations even, nonlabored. Currently on room air with oxygen saturation 93%. - Cardiovascular Details: S1, S2 present. Regular rate and rhythm, sinus rhythm on telemetry. Palpable peripheral pulses bilaterally. No edema present. No calf pain or tenderness noted. Mediastinal chest tube present to continuous wall suction, 35 mL serous drainage overnight, 170 mL since surgery. - Gastrointestinal Gastrointestinal Comment(s): Abdomen soft, nontender, nondistended. Active bowel sounds 4 quadrants. Tolerating diet. - Genitourinary Genitourinary Comment(s): Continues to void clear, yellow urine. - Integumentary Integumentary Comment(s): Skin is warm and dry with evidence of good perfusion. - Neurologic Neurologic: Present: CNII-XII intact - Musculoskeletal Musculoskeletal: Present: gait normal, strength equal bilaterally - Psychiatric Psychiatric: Present: A&O x's 3, appropriate affect, intact judgment & insight - Allied health notes Allied health notes reviewed: nursing - Labs CBC & Chem 7: 06/18/17 05:25 06/18/17 05:25 Labs: Abnormal Lab Results - Last 24 Hours (Table) 06/17/17 06/17/1718 Range/Units 12:02 16:36 20:22 WBC (3.8-10.6) k/uL RBC (3.80-5.40) m/uL Hgb (11.4-16.0) gm/dL Hct (34.0-46.0) % Lymphocytes # (Manual) (1.0-4.8) k/uL Eosinophils # (Manual) (0-0.7) k/uL POC Glucose (mg/dL) 119 H 168 H 135 H (75-99) mg/dL Phosphorus (2.5-4.5) mg/dL 06/18/17 06/18/17 Range/Units 05:25 05:25 WBC 14.5 H (3.8-10.6) k/uL RBC 3.45 L (3.80-5.40) m/uL Hgb 11.3 L (11.4-16.0) gm/dL Hct 33.9 L (34.0-46.0) % Lymphocytes # (Manual) 6.82 H (1.0-4.8) k/uL Eosinophils # (Manual) 1.74 H (0-0.7) k/uL POC Glucose (mg/dL) (75-99) mg/dL Phosphorus 5.0 H (2.5-4.5) mg/dL Microbiology - Last 24 Hours (Table) 06/17/17 08:51 Gram Stain - Preliminary Heart Tissue Culture - Preliminary 06/17/17 08:51 Gram Stain - Preliminary Pericardial Fluid Body Fluid Culture - Preliminary 06/17/17 08:51 Anaerobic Culture - Preliminary Heart 06/17/17 08:51 Anaerobic Culture - Preliminary Pericardial Fluid Assessment and Plan (1) Elevated troponin Current Visit: Yes Status: Acute Code(s): R74.8 - ABNORMAL LEVELS OF OTHER SERUM ENZYMES SNOMED Code(s): 981217188 (2) History of asthma Current Visit: Yes Status: Chronic Code(s): Z87.09 - PERSONAL HISTORY OF OTHER DISEASES OF THE RESPIRATORY SYSTEM SNOMED Code(s): 967190998 (3) History of upper respiratory infection Current Visit: No Status: Resolved Code(s): Z87.09 - PERSONAL HISTORY OF OTHER DISEASES OF THE RESPIRATORY SYSTEM SNOMED Code(s): 968250993 (4) Pericardial effusion Current Visit: Yes Status: Acute Code(s): I31.3 - PERICARDIAL EFFUSION ( NONINFLAMMATORY) SNOMED Code(s): 120725055 (5) Thyroid disorder Current Visit: Yes Status: Chronic Code(s): E07.9 - DISORDER OF THYROID, UNSPECIFIED SNOMED Code(s): 06301229 Plan: 1. Continue aspirin, colchicine, prednisone. 2. Maintain mediastinal chest tube for another 24 hours. Will monitor output. 3. Pain control with ordered medications. 4. GI/DVT prophylaxis. 5. Medical management per primary care service. 6. Encourage incentive spirometry use 10 times every hour. 7. More recommendations to follow. Time with Patient: Greater than 30
[2017-06-18 11:32] LABS: Glucose,Whole Blood 122 mg/dL (75-99)
--- NOTE | 2017-06-18 12:44 | P.PN ---
Subjective Progress Note Date: 06/18/17 Principal diagnosis: Pericardial effusion This is a very pleasant 66-year-old female patient who was originally admitted on 06/14/2017 with complaints of shortness of breath, chest tightness and congestion. She was found to have a moderate to severe paracardial effusion with suspected reactive myocarditis and admit seen and evaluated by cardiothoracic surgeons and subsequently a pericardial window was performed on 06/17/2017 with approximate 500 mL of serous fluid removed and a mediastinal chest tube was placed she is seen today on the selective care unit in follow- up. She is awake and alert in no acute distress. An additional 35 mL's of chest tube drainage was noted. Chest x-ray reveals some basilar effusions and associated atelectasis with confluent edema. She is maintaining O2 saturations in the 90s on room air. She's been hemodynamically stable. Afebrile. White count 14.5. Hemoglobin 11.3. Creatinine 1.00. She remains on aspirin, colchicine and prednisone. She is working well at the incentive spirometer. Objective - Vital Signs Vital signs: Vital Signs Temp 98.1 F 06/18/17 12:00 Pulse 101 H 06/18/17 12:00 Resp 14 06/18/17 12:00 BP 118/68 06/18/17 12:00 Pulse Ox 91 L 06/18/17 12:00 Intake & Output 06/17/17 06/18/17 06/18/17 18:59 06:59 18:59 Intake Total 1094 180 Output Total 482 85 Balance 612 -85 180 Weight 61 kg Intake: IV 554 Oral 540 180 Output: Chest Tube Drainage 25 85 Chest Tube Mediastinal 25 85 Drainage 55 Chest 55 Urine 400 Estimated Blood Loss 2 Other: Voiding Method Toilet Toilet Toilet # Voids 2 - Exam No acute distress, oriented 3. HEENT examination is grossly unremarkable. Mucous membranes are moist. No oral lesions. Neck supple. Full range of motion. No adenopathy thyromegaly or neck vein distention. Cardiovascular examination reveals regular rhythm rate. S1-S2 normal. No S3 or S4. No discernible murmur noted. There chest tube within the pericardium is in place minimal drainage at this point time Lungs reveal mostly clear breath sounds. A few scattered mild crackles at the bases. No wheezes. No rhonchi. Abdomen soft bowel sounds are heard. No masses or tenderness. Extremities are intact. No cyanosis clubbing or edema. Skin is without rash or lesion. Neurologic examination is brief but nonfocal. - Labs CBC & Chem 7: 06/18/17 05:25 06/18/17 05:25 Labs: Abnormal Lab Results - Last 24 Hours (Table) 06/17/17 06/17/17 06/17/17 Range/Units 08:51 16:36 20:22 WBC (3.8-10.6) k/uL RBC (3.80-5.40) m/uL Hgb (11.4-16.0) gm/dL Hct (34.0-46.0) % Lymphocytes # (Manual) (1.0-4.8) k/uL Eosinophils # (Manual) (0-0.7) k/uL POC Glucose (mg/dL) 168 H 135 H (75-99) mg/dL Phosphorus (2.5-4.5) mg/dL Viral Test See Below H 06/18/17 06/18/17 06/18/17 Range/Units 05:25 05:25 11:30 WBC 14.5 H (3.8-10.6) k/uL RBC 3.45 L (3.80-5.40) m/uL Hgb 11.3 L (11.4-16.0) gm/dL Hct 33.9 L (34.0-46.0) % Lymphocytes # (Manual) 6.82 H (1.0-4.8) k/uL Eosinophils # (Manual) 1.74 H (0-0.7) k/uL POC Glucose (mg/dL) 122 H (75-99) mg/dL Phosphorus 5.0 H (2.5-4.5) mg/dL Viral Test Microbiology - Last 24 Hours (Table) 06/17/17 08:51 Gram Stain - Preliminary Heart Tissue Culture - Preliminary 06/17/17 08:51 Gram Stain - Preliminary Pericardial Fluid Body Fluid Culture - Preliminary 06/17/17 08:51 Anaerobic Culture - Preliminary Heart 06/17/17 08:51 Anaerobic Culture - Preliminary Pericardial Fluid Assessment and Plan Assessment: Assessment 1 pericardial effusion likely related to viral pericarditis. Status post pericardial window 2 bilateral pleural effusion right more than left 3 chronic bronchial moderate persistent bronchial asthma 4 hypothyroidism Plan: The patient was seen and evaluated by Dr. Dickerson. Her chest x-ray and labs were reviewed. She is diminished in the bases more so on the right. We'll obtain an ultrasound of the chest to rule out any significant pericardial effusion. If markedly rate go ahead and perform a thoracentesis. In the interim, she is again encouraged regarding the increased use of the incentive spirometer and cough and deep breathing exercises. Increase her activity as tolerated. We will continue to follow and make further recommendations based on her clinical status. I, the cosigning physician, performed a history & physical examination of the patient. Lungs sounds with crackles in the posterior bases more so on the right. Diminished.. Maintaining good O2 saturations in the 90s on room air. I discussed the assessment and plan of care with my nurse practitioner, Leticia Florence. I attest to the above note as dictated by her.
--- NOTE | 2017-06-18 13:24 | P.PN ---
Subjective Progress Note Date: 06/18/17 Principal diagnosis: Pericarditis Feeling better, she is having less sob today compared to yesterday. The surgical incision site is still uncomfortable. Objective - Vital Signs Vital signs: Vital Signs Temp 98.1 F 06/18/17 12:00 Pulse 101 H 06/18/17 12:00 Resp 14 06/18/17 12:00 BP 118/68 06/18/17 12:00 Pulse Ox 91 L 06/18/17 12:00 Intake & Output 06/17/17 06/18/17 06/18/17 18:59 06:59 18:59 Intake Total 1094 180 Output Total 482 85 Balance 612 -85 180 Weight 61 kg Intake: IV 554 Oral 540 180 Output: Chest Tube Drainage 25 85 Chest Tube Mediastinal 25 85 Drainage 55 Chest 55 Urine 400 Estimated Blood Loss 2 Other: Voiding Method Toilet Toilet Toilet # Voids 2 - Exam Constitutional: No acute distress, conversant, pleasant Eyes:Anicteric sclerae, moist conjunctiva, no lid-lag, PERRLA, ENMT: Oropharynx clear, no erythema, exudates Neck: Supple, FROM, no masses, or JVD, No carotid bruits, No thyromegaly Lungs: Clear to auscultation, Clear to percussion, Normal respiratory effort, no accessory muscle use Cardiovascular: Heart regular in rate and rhythm, No murmurs, gallops, or rubs, No peripheral edema. Mediastinal chest tube present to continuous wall suction, 35 mL serous drainage overnight, 170 mL since surgery. Abdominal: Soft, Nontender, no guarding, rebound or rigidity, Normoactive bowel sounds, No hepatomegaly, No splenomegaly, No palpable mass Skin: Normal temperature, tone, texture, turgor, no induration, No subcutaneous nodules, No rash, lesions, No ulcers Extremities: No digital cyanosis, No clubbing, Pedal pulses intact and symmetrical, Radial pulses intact and symmetrical, No calf tenderness Psychiatric: Alert and oriented to person, place and time, appropriate affect, intact judgement Neuro: Muscles Strength 5/5 in all 4 extremities, Sensation to light touch grossly present throughout, Cranial nerves II-XII grossly intact, no focal sensory deficits - Labs CBC & Chem 7: 06/18/17 05:25 06/18/17 05:25 Labs: Abnormal Lab Results - Last 24 Hours (Table) 06/17/17 06/17/17 06/17/17 Range/Units 08:51 16:36 20:22 WBC (3.8-10.6) k/uL RBC (3.80-5.40) m/uL Hgb (11.4-16.0) gm/dL Hct (34.0-46.0) % Lymphocytes # (Manual) (1.0-4.8) k/uL Eosinophils # (Manual) (0-0.7) k/uL POC Glucose (mg/dL) 168 H 135 H (75-99) mg/dL Phosphorus (2.5-4.5) mg/dL Viral Test See Below H 06/18/17 06/18/17 06/18/17 Range/Units 05:25 05:25 11:30 WBC 14.5 H (3.8-10.6) k/uL RBC 3.45 L (3.80-5.40) m/uL Hgb 11.3 L (11.4-16.0) gm/dL Hct 33.9 L (34.0-46.0) % Lymphocytes # (Manual) 6.82 H (1.0-4.8) k/uL Eosinophils # (Manual) 1.74 H (0-0.7) k/uL POC Glucose (mg/dL) 122 H (75-99) mg/dL Phosphorus 5.0 H (2.5-4.5) mg/dL Viral Test Microbiology - Last 24 Hours (Table) 06/17/17 08:51 Gram Stain - Preliminary Heart Tissue Culture - Preliminary 06/17/17 08:51 Gram Stain - Preliminary Pericardial Fluid Body Fluid Culture - Preliminary 06/17/17 08:51 Anaerobic Culture - Preliminary Heart 06/17/17 08:51 Anaerobic Culture - Preliminary Pericardial Fluid Assessment and Plan Plan: # Acute pericarditis/acute myocarditis with large pericardial effusion Earlier patient had EKG changes with frequent PVCs, elevated cardiac biomarkers S/P pericardial window postoperative day 1 On prednisone 30 mg for 2 weeks and colchicine 0.6 mg daily for 3 months for myocarditis #Hypothyroidism Currently stable Continue with levothyroxine #Dyspepsia Continue with Protonix twice a day #DVT prophylaxis Heparin subcu 3 times a day Insomnia When necessary Ricardo
--- NOTE | 2017-06-18 14:49 | P.PN ---
Subjective Progress Note Date: 06/18/17 Principal diagnosis: Pericardial effusion This is a 66-year-old female who presented to the hospital with symptoms of progressive dyspnea. She underwent a CAT scan which revealed evidence of a pericardial effusion, this was also documented on echocardiogram. This was moderate to large in size, today she underwent a pericardial window, continues to have drainage tube in place. Patient was a little groggy but denied any chest discomfort, breathing has been stable, no dizziness or lightheadedness. Blood pressure 128/70 with a heart rate in the 90s, 95% on 3 L of oxygen. White blood cell count 10.8, hemoglobin 10.8, platelet count 235. Sodium 141, potassium 4.3, BUN 18, creatinine 0.9, magnesium 2.3. 06/18/2017 Patient seen and examined this morning, overall doing significantly better today. Continues to have chest tube in place. 200 mL of drainage out of the chest tube. Patient does have a pleural effusion, for which an ultrasound of the chest was performed today. Objective - Vital Signs Vital signs: Vital Signs Temp 98.1 F 06/18/17 12:00 Pulse 101 H 06/18/17 12:00 Resp 14 06/18/17 12:00 BP 118/68 06/18/17 12:00 Pulse Ox 91 L 06/18/17 12:00 Intake & Output 06/17/17 06/18/17 06/18/17 18:59 06:59 18:59 Intake Total 1094 180 Output Total 482 85 Balance 612 -85 180 Weight 61 kg Intake: IV 554 Oral 540 180 Output: Chest Tube Drainage 25 85 Chest Tube Mediastinal 25 85 Drainage 55 Chest 55 Urine 400 Estimated Blood Loss 2 Other: Voiding Method Toilet Toilet Toilet # Voids 2 - Exam PHYSICAL EXAMINATION: HEENT: Head is atraumatic, normocephalic. Pupils equal, round. Neck is supple. There is no elevated jugular venous pressure. HEART EXAMINATION: Heart S1 and S2 with systolic murmur is heard CHEST EXAMINATION: Lungs are clear to auscultation with diminished air entry to the left posterior base mediastinal chest tube in place ABDOMEN: Soft, nontender. Bowel sounds are heard. No organomegaly noted. EXTREMITIES: 2+ peripheral pulses with no evidence of peripheral edema and no calf tenderness noted. NEUROLOGIC patient is awake, alert and oriented -3. . - Labs CBC & Chem 7: 06/18/17 05:25 06/18/17 05:25 Labs: Abnormal Lab Results - Last 24 Hours (Table) 06/17/17 06/17/17 06/17/17 Range/Units 08:51 16:36 20:22 WBC (3.8-10.6) k/uL RBC (3.80-5.40) m/uL Hgb (11.4-16.0) gm/dL Hct (34.0-46.0) % Lymphocytes # (Manual) (1.0-4.8) k/uL Eosinophils # (Manual) (0-0.7) k/uL POC Glucose (mg/dL) 168 H 135 H (75-99) mg/dL Phosphorus (2.5-4.5) mg/dL Viral Test See Below H 06/18/17 06/18/17 06/18/17 Range/Units 05:25 05:25 11:30 WBC 14.5 H (3.8-10.6) k/uL RBC 3.45 L (3.80-5.40) m/uL Hgb 11.3 L (11.4-16.0) gm/dL Hct 33.9 L (34.0-46.0) % Lymphocytes # (Manual) 6.82 H (1.0-4.8) k/uL Eosinophils # (Manual) 1.74 H (0-0.7) k/uL POC Glucose (mg/dL) 122 H (75-99) mg/dL Phosphorus 5.0 H (2.5-4.5) mg/dL Viral Test Microbiology - Last 24 Hours (Table) 06/17/17 08:51 Gram Stain - Preliminary Heart Tissue Culture - Preliminary 06/17/17 08:51 Gram Stain - Preliminary Pericardial Fluid Body Fluid Culture - Preliminary 06/17/17 08:51 Anaerobic Culture - Preliminary Heart 06/17/17 08:51 Anaerobic Culture - Preliminary Pericardial Fluid Assessment and Plan Plan: Assessment and plan #1 pericardial effusion of unclear etiology, status post pericardial window of today. Chest tube remains in place. #2 history of asthma #3 hypothyroidism Plan From cardiology's perspective, we'll continue the patient on her current medications. Await cytology results of the pericardial fluid. We will continue to follow. DNP note has been reviewed, I agree with a documented findings and plan of care. Patient was seen and examined.
--- NOTE | 2017-06-18 14:57 | US ---
EXAMINATION TYPE: US chest DATE OF EXAM: 06/18/2017 COMPARISON: Chest x-ray 06/17/2017 CLINICAL HISTORY: Bilateral pleural effusions, right > left. Chest, bilateral pleural effusion, exam done portable. EXAM MEASUREMENTS: Right Pleural Effusion fluid pocket: 6.3 cm Right skin to fluid thickness: 2.6 cm Left Pleural Effusion fluid pocket: 8.4 cm Left skin to fluid thickness: 1.9 cm Right side MARKED for possible thoracentesis outside the dept. Lung tissue seen within middle of flui d pocket. Left side MARKED for possible thoracentesis outside the dept. Lung tissue seen within middle of fluid pocket. Pulmonologists are able to review the images in the patient?s EMR. Ultrasound performed of the posterior left and right chest. IMPRESSIONS: Bilateral pleural effusions
[2017-06-18 17:01] LABS: Glucose,Whole Blood 131 mg/dL (75-99)
[2017-06-18 18:28] VITALS: RESP 18
[2017-06-18 20:51] LABS: Glucose,Whole Blood 125 mg/dL (75-99)
[2017-06-19 06:17] LABS: HGB 11.5 gm/dL (11.4-16.0); MCHC 33.9 g/dL (31.0-37.0); MCV 97.1 fL (80.0-100.0); Mean Platelet Volume 6.9; Platelet Count 288 k/uL (150-450); RDW 13.3 % (11.5-15.5); WBC 13.3 k/uL (3.8-10.6)
[2017-06-19] MEDS: HEPARIN SODIUM,PORCINE 5,000 UNIT/ML 1 ML VIAL SQ SCH ×4 (06:20→23:19)
[2017-06-19 06:30] LABS: Calcium 8.6 mg/dL (8.4-10.2); Magnesium 1.9 mg/dL (1.6-2.3); Phosphorus 4.8 mg/dL (2.5-4.5); Potassium 4.3 mmol/L (3.5-5.1)
[2017-06-19 06:35] LABS: Glucose,Whole Blood 88 mg/dL (75-99)
[2017-06-19] MEDS: LEVOTHYROXINE 50 MCG TAB PO SCH (07:04)
[2017-06-19] MEDS: PANTOPRAZOLE 40 MG TABLET PO SCH ×2 (07:04→17:16)
[2017-06-19] MEDS: SYMBICORT 80-4.5 MCG INHALER INHALATION SCH (08:21)
[2017-06-19] MEDS: INSULIN ASPART 100 UNIT/ML 1 ML 10 ML VIAL SQ SCH ×4 (08:45→23:18)
--- NOTE | 2017-06-19 08:50 | P.PN ---
Subjective Progress Note Date: 06/19/17 Principal diagnosis: Large generalized pericardial effusion. History of hypothyroid, asthma, recent upper respiratory infection, elevated troponins. POD #2 subxiphoid pericardial window with evacuation of approximately 500 mL serous fluid Patient is currently sitting up in bed in no acute distress. Denies pain, shortness of breath. Had questions regarding possible thoracentesis, questions answered to the best of my abilities. Was ambulating in the hallway multiple times yesterday. Objective - Vital Signs Vital signs: Vital Signs Temp 97.8 F 06/18/17 20:00 Pulse 77 06/19/17 04:00 Resp 18 06/19/17 04:00 BP 132/67 06/18/17 20:00 Pulse Ox 96 06/18/17 20:00 Intake & Output 06/18/17 06/19/17 06/19/17 18:59 06:59 18:59 Intake Total 600 120 Output Total 12 Balance 588 120 Weight 59.9 kg Intake: Oral 600 120 Output: Drainage 12 Chest 12 Other: Voiding Method Toilet Toilet # Voids 2 2 - Constitutional General appearance: Present: cooperative, no acute distress - Respiratory Details: Lungs sounds diminished in the bases bilaterally. Respirations even, nonlabored. Currently on room air with oxygen saturation 96%. Only able to achieve 500 mL on her incentive spirometry. - Cardiovascular Details: S1, S2 present. Regular rate and rhythm, sinus rhythm on telemetry. Palpable peripheral pulses bilaterally. No edema present. No calf pain or tenderness noted. Mediastinal chest tube present to waterseal, 70 mL serous drainage in the last 24 hours. - Gastrointestinal Gastrointestinal Comment(s): Abdomen soft, nontender, nondistended. Active bowel sounds 4 quadrants. Tolerating diet. - Genitourinary Genitourinary Comment(s): Continues to void clear, yellow urine. - Integumentary Integumentary Comment(s): Skin is warm and dry with evidence of good perfusion. - Neurologic Neurologic: Present: CNII-XII intact - Musculoskeletal Musculoskeletal: Present: gait normal, strength equal bilaterally - Psychiatric Psychiatric: Present: A&O x's 3, appropriate affect, intact judgment & insight - Allied health notes Allied health notes reviewed: nursing - Labs CBC & Chem 7: 06/19/17 05:50 06/19/17 05:50 Labs: Abnormal Lab Results - Last 24 Hours (Table) 06/17/17 06/18/17 06/18/17 Range/Units 08:51 11:30 16:48 WBC (3.8-10.6) k/uL RBC (3.80-5.40) m/uL POC Glucose (mg/dL) 122 H 131 H (75-99) mg/dL Phosphorus (2.5-4.5) mg/dL Viral Test See Below H 06/18/17 06/19/17 06/19/17 Range/Units 20:39 05:50 05:50 WBC 13.3 H (3.8-10.6) k/uL RBC 3.50 L (3.80-5.40) m/uL POC Glucose (mg/dL) 125 H (75-99) mg/dL Phosphorus 4.8 H (2.5-4.5) mg/dL Viral Test Microbiology - Last 24 Hours (Table) 06/17/17 08:51 Gram Stain - Preliminary Heart Tissue Culture - Preliminary 06/17/17 08:51 Gram Stain - Preliminary Pericardial Fluid Body Fluid Culture - Preliminary Assessment and Plan (1) Elevated troponin Current Visit: Yes Status: Acute Code(s): R74.8 - ABNORMAL LEVELS OF OTHER SERUM ENZYMES SNOMED Code(s): 919411945 (2) History of asthma Current Visit: Yes Status: Chronic Code(s): Z87.09 - PERSONAL HISTORY OF OTHER DISEASES OF THE RESPIRATORY SYSTEM SNOMED Code(s): 357434168 (3) History of upper respiratory infection Current Visit: No Status: Resolved Code(s): Z87.09 - PERSONAL HISTORY OF OTHER DISEASES OF THE RESPIRATORY SYSTEM SNOMED Code(s): 281314501 (4) Pericardial effusion Current Visit: Yes Status: Acute Code(s): I31.3 - PERICARDIAL EFFUSION ( NONINFLAMMATORY) SNOMED Code(s): 045757552 (5) Thyroid disorder Current Visit: Yes Status: Chronic Code(s): E07.9 - DISORDER OF THYROID, UNSPECIFIED SNOMED Code(s): 62730321 Plan: 1. Continue aspirin, colchicine, prednisone. 2. Likely will discontinue mediastinal chest tubes later today. 4. Patient marked for possible thoracentesis later today. 5. Pain control with ordered medications. 6. GI/DVT prophylaxis. 7. Medical management per primary care service. 8. Encourage incentive spirometry use 10 times every hour. 9. More recommendations to follow. Time with Patient: Greater than 30
[2017-06-19] MEDS: COLCHICINE 0.6 MG EACH PO SCH (09:00)
[2017-06-19] MEDS: predniSONE 10 MG TAB PO SCH (09:00)
[2017-06-19] MEDS: ASPIRIN 81 MG PO SCH (09:00)
[2017-06-19] MEDS: SENNOSIDES 8.6 MG TAB PO SCH (09:03)
[2017-06-19 10:48] LABS: Band Neutrophils % 1 %; Eosinophils # (M) 0.67 k/uL (0-0.7); Lymphocytes # (M) 9.98 k/uL (1.0-4.8); Neutrophils % (M) 19 %; Nucleated Red Blood Cells 0 /100 WBC (0-0); Total Cells Counted 100
[2017-06-19 11:36] LABS: Glucose,Whole Blood 132 mg/dL (75-99)
--- NOTE | 2017-06-19 13:13 | P.PN ---
Subjective Progress Note Date: 06/19/17 Principal diagnosis: Pericardial effusion, bilateral pericardial effusions This is a very pleasant 66-year-old female patient who was originally admitted on 06/14/2017 with complaints of shortness of breath, chest tightness and congestion. She was found to have a moderate to severe paracardial effusion with suspected reactive myocarditis and admit seen and evaluated by cardiothoracic surgeons and subsequently a pericardial window was performed on 06/17/2017 with approximate 500 mL of serous fluid removed and a mediastinal chest tube was placed she is seen today on the selective care unit in follow- up. She is awake and alert in no acute distress. An additional 35 mL's of chest tube drainage was noted. Chest x-ray reveals some basilar effusions and associated atelectasis with confluent edema. She is maintaining O2 saturations in the 90s on room air. She's been hemodynamically stable. Afebrile. White count 14.5. Hemoglobin 11.3. Creatinine 1.00. She remains on aspirin, colchicine and prednisone. She is working well at the incentive spirometer. The patient is seen again today 06/19/2017 in follow-up on the selective care unit. She is currently sitting up in bed. She is awake and alert in no acute distress. She is postoperative need #2 pericardial window. The fluid and tissue are negative for malignancy. Minimal output. Plans for possible removal of mediastinal chest tube later today. The ultrasound of the pleural effusions did reveal significant 6.3 cm fluid pocket on the right and 8.4 cm pocket on the left. The plans are for thoracentesis today with Dr. Dickerson. She is currently maintaining good O2 saturations in the 90s on room air. She's been afebrile. Hemodynamically stable. Cultures are pending. White count 13.3. Hemoglobin 11.5. Creatinine 1.02. Objective - Vital Signs Vital signs: Vital Signs Temp 98.7 F 06/19/17 08:44 Pulse 98 06/19/17 08:44 Resp 18 06/19/17 08:44 BP 122/73 06/19/17 08:44 Pulse Ox 92 L 06/19/17 08:44 Intake & Output 06/18/17 06/19/17 06/19/17 18:59 06:59 18:59 Intake Total 600 220 Output Total 12 Balance 588 220 Weight 59.9 kg Intake: Oral 600 220 Output: Drainage 12 Chest 12 Other: Voiding Method Toilet Toilet Toilet # Voids 2 2 - Exam No acute distress, oriented 3. HEENT examination is grossly unremarkable. Mucous membranes are moist. No oral lesions. Neck supple. Full range of motion. No adenopathy thyromegaly or neck vein distention. Cardiovascular examination reveals regular rhythm rate. S1-S2 normal. No S3 or S4. No discernible murmur noted. There chest tube within the pericardium is in place minimal drainage at this point time Lungs reveal mostly clear breath sounds. A few scattered mild crackles at the bases. No wheezes. No rhonchi. Abdomen soft bowel sounds are heard. No masses or tenderness. Extremities are intact. No cyanosis clubbing or edema. Skin is without rash or lesion. Neurologic examination is brief but nonfocal. - Labs CBC & Chem 7: 06/19/17 05:50 06/19/17 05:50 Labs: Abnormal Lab Results - Last 24 Hours (Table) 06/18/17 06/18/17 06/19/17 Range/Units 16:48 20:39 05:50 WBC 13.3 H (3.8-10.6) k/uL RBC 3.50 L (3.80-5.40) m/uL Lymphocytes # (Manual) 9.98 H (1.0-4.8) k/uL POC Glucose (mg/dL) 131 H 125 H (75-99) mg/dL Phosphorus (2.5-4.5) mg/dL 06/19/17 06/19/17 Range/Units 05:50 11:34 WBC (3.8-10.6) k/uL RBC (3.80-5.40) m/uL Lymphocytes # (Manual) (1.0-4.8) k/uL POC Glucose (mg/dL) 132 H (75-99) mg/dL Phosphorus 4.8 H (2.5-4.5) mg/dL Microbiology - Last 24 Hours (Table) 06/17/17 08:51 Anaerobic Culture - Preliminary Pericardial Fluid 06/17/17 08:51 Gram Stain - Preliminary Heart Tissue Culture - Preliminary 06/17/17 08:51 Gram Stain - Preliminary Pericardial Fluid Body Fluid Culture - Preliminary Assessment and Plan Assessment: Assessment 1 pericardial effusion likely related to viral pericarditis. Status post pericardial window and fluid and tissue negative for malignancy. Cultures reveal no growth to date. 2 bilateral pleural effusion left greater than right 3 chronic bronchial moderate persistent bronchial asthma 4 hypothyroidism Plan: The patient was seen and evaluated by Dr. Dickerson. Her chest ultrasound and labs were reviewed. 6.3 cm pocket on the right. 8.4 cm pocket on the left. Plan is for thoracentesis today. She is again encouraged regarding the increased use of the incentive spirometer and cough and deep breathing exercises. Increase her activity as tolerated. We will continue to follow and make further recommendations based on her clinical status. I, the cosigning physician, performed a history & physical examination of the patient. Lungs sounds with crackles in the posterior bases more so on the left. Diminished.. Maintaining good O2 saturations in the 90s on room air. I discussed the assessment and plan of care with my nurse practitioner, Leticia Florence. I attest to the above note as dictated by her.
[2017-06-19] MEDS: MAGNESIUM HYDROXIDE 2,400 MG/10 ML CUP PO PRN (13:49)
--- NOTE | 2017-06-19 15:41 | P.PN ---
Subjective Progress Note Date: 06/19/17 Principal diagnosis: Pericardial effusion This is a 66-year-old female who presented to the hospital with symptoms of progressive dyspnea. She underwent a CAT scan which revealed evidence of a pericardial effusion, this was also documented on echocardiogram. This was moderate to large in size, today she underwent a pericardial window, continues to have drainage tube in place. Patient was a little groggy but denied any chest discomfort, breathing has been stable, no dizziness or lightheadedness. Blood pressure 128/70 with a heart rate in the 90s, 95% on 3 L of oxygen. White blood cell count 10.8, hemoglobin 10.8, platelet count 235. Sodium 141, potassium 4.3, BUN 18, creatinine 0.9, magnesium 2.3. 06/18/2017 Patient seen and examined this morning, overall doing significantly better today. Continues to have chest tube in place. 200 mL of drainage out of the chest tube. Patient does have a pleural effusion, for which an ultrasound of the chest was performed today. 06/19/2017 Patient seen and examined this morning, doing well overall. Continues to have chest tube in place. Cytology does not reveal any significant organisms. Ultrasound of the chest revealed right pleural effusion of 6.3 cm and left pleural effusion of 8.4 cm. will be scheduled today to undergo a left- sided thoracentesis. Very minimal if any drainage out of the chest tube today. Hemodynamically stable Objective - Vital Signs Vital signs: Vital Signs Temp 98.1 F 06/19/17 11:15 Pulse 105 H 06/19/17 15:09 Resp 18 06/19/17 15:09 BP 133/76 06/19/17 11:15 Pulse Ox 93 L 06/19/17 11:15 Intake & Output 06/18/17 06/19/17 06/19/17 18:59 06:59 18:59 Intake Total 600 520 Output Total 12 400 Balance 588 120 Weight 59.9 kg Intake: Oral 600 520 Output: Drainage 12 Chest 12 Urine 400 Other: Voiding Method Toilet Toilet Toilet # Voids 2 2 1 - Exam PHYSICAL EXAMINATION: HEENT: Head is atraumatic, normocephalic. Pupils equal, round. Neck is supple. There is no elevated jugular venous pressure. HEART EXAMINATION: Heart S1 and S2 with systolic murmur is heard CHEST EXAMINATION: Lungs are clear to auscultation with diminished air entry to I lateral bases, left greater than the right ABDOMEN: Soft, nontender. Bowel sounds are heard. No organomegaly noted. EXTREMITIES: 2+ peripheral pulses with no evidence of peripheral edema and no calf tenderness noted. NEUROLOGIC patient is awake, alert and oriented -3. . - Labs CBC & Chem 7: 06/19/17 05:50 06/19/17 05:50 Labs: Abnormal Lab Results - Last 24 Hours (Table) 06/18/17 06/18/17 06/19/17 Range/Units 16:48 20:39 05:50 WBC 13.3 H (3.8-10.6) k/uL RBC 3.50 L (3.80-5.40) m/uL Lymphocytes # (Manual) 9.98 H (1.0-4.8) k/uL POC Glucose (mg/dL) 131 H 125 H (75-99) mg/dL Phosphorus (2.5-4.5) mg/dL 06/19/17 06/19/17 Range/Units 05:50 11:34 WBC (3.8-10.6) k/uL RBC (3.80-5.40) m/uL Lymphocytes # (Manual) (1.0-4.8) k/uL POC Glucose (mg/dL) 132 H (75-99) mg/dL Phosphorus 4.8 H (2.5-4.5) mg/dL Microbiology - Last 24 Hours (Table) 06/17/17 08:51 Anaerobic Culture - Preliminary Pericardial Fluid 06/17/17 08:51 Gram Stain - Preliminary Heart Tissue Culture - Preliminary 06/17/17 08:51 Gram Stain - Preliminary Pericardial Fluid Body Fluid Culture - Preliminary Assessment and Plan Plan: Assessment and plan #1 pericardial effusion of unclear etiology, status post pericardial window of today. Chest tube remains in place. No significant organisms noted in cytology of pericardial fluid report. #2 history of asthma #3 hypothyroidism Plan From cardiology's perspective, we'll continue the patient on her current medications. Possible left-sided thoracentesis today. DNP note has been reviewed, I agree with a documented findings and plan of care. Patient was seen and examined.
[2017-06-19 16:32] LABS: Glucose,Whole Blood 154 mg/dL (75-99)
[2017-06-19] MEDS: ZOLPIDEM 10 MG TAB PO PRN (20:52)
[2017-06-19 20:54] LABS: Glucose,Whole Blood 110 mg/dL (75-99)
[2017-06-20 06:09] LABS: Glucose,Whole Blood 92 mg/dL (75-99)
[2017-06-20] MEDS: MAGNESIUM HYDROXIDE 2,400 MG/10 ML CUP PO PRN (06:11)
[2017-06-20] MEDS: LEVOTHYROXINE 50 MCG TAB PO SCH (06:12)
[2017-06-20] MEDS: INSULIN ASPART 100 UNIT/ML 1 ML 10 ML VIAL SQ SCH ×2 (06:12→12:17)
[2017-06-20] MEDS: PANTOPRAZOLE 40 MG TABLET PO SCH (06:12)
[2017-06-20] MEDS: ACETAMINOPHEN TAB 325 MG TAB PO PRN (06:30)
[2017-06-20] MEDS: SYMBICORT 80-4.5 MCG INHALER INHALATION SCH (07:06)
[2017-06-20] MEDS: ASPIRIN 81 MG PO SCH (08:07)
[2017-06-20] MEDS: HEPARIN SODIUM,PORCINE 5,000 UNIT/ML 1 ML VIAL SQ SCH (08:07)
[2017-06-20] MEDS: SENNOSIDES 8.6 MG TAB PO SCH (08:08)
[2017-06-20] MEDS: predniSONE 10 MG TAB PO SCH (08:08)
[2017-06-20] MEDS: COLCHICINE 0.6 MG EACH PO SCH (08:08)
--- NOTE | 2017-06-20 10:40 | XR ---
EXAMINATION TYPE: XR chest 2V DATE OF EXAM: 06/20/2017 COMPARISON: Prior chest x-ray 06/17/2017 HISTORY: Pleural effusion, chest tube TECHNIQUE: Frontal and lateral views of the chest are obtained. FINDINGS: Median sternal drain remains in place. Bibasilar increased density persists. Heart remains enlarged. No evident pneumothorax. There are overlying cardiac leads. IMPRESSION: Similar findings. Bibasilar effusions and associated atelectasis.
[2017-06-20 11:09] VITALS: BP 131/77; PULSE 105; TEMP 97
[2017-06-20 11:44] LABS: Glucose,Whole Blood 133 mg/dL (75-99)
--- NOTE | 2017-06-20 12:12 | P.PN ---
Subjective Progress Note Date: 06/20/17 Principal diagnosis: Large generalized pericardial effusion. History of hypothyroid, asthma, recent upper respiratory infection, elevated troponins. POD #3 subxiphoid pericardial window with evacuation of approximately 500 mL serous fluid Patient is currently sitting up in bed in no acute distress. Denies pain, shortness of breath. Has ambulated in the hallway multiple times. Objective - Vital Signs Vital signs: Vital Signs Temp 97.0 F L 06/20/17 11:07 Pulse 105 H 06/20/17 11:49 Resp 18 06/20/17 11:49 BP 131/77 06/20/17 11:07 Pulse Ox 96 06/20/17 11:07 Intake & Output 06/19/17 06/20/17 06/20/17 18:59 06:59 18:59 Intake Total 640 120 Output Total 400 Balance 240 120 Weight 59.1 kg Intake: Oral 640 120 Output: Urine 400 Other: Voiding Method Toilet Toilet Toilet # Voids 1 1 - Constitutional General appearance: Present: cooperative, no acute distress - Respiratory Details: Lungs sounds diminished in the bases bilaterally. Respirations even, nonlabored. Currently on room air with oxygen saturation 93%. Only able to achieve 750 mL on her incentive spirometry. - Cardiovascular Details: S1, S2 present. Regular rate and rhythm, sinus rhythm on telemetry. Palpable peripheral pulses bilaterally. No edema present. No calf pain or tenderness noted. Mediastinal chest tube present to waterseal, 30 mL serous drainage in the last 24 hours. - Gastrointestinal Gastrointestinal Comment(s): Abdomen soft, nontender, nondistended. Active bowel sounds 4 quadrants. Tolerating diet. - Genitourinary Genitourinary Comment(s): Continues to void clear, yellow urine. - Integumentary Integumentary Comment(s): Skin is warm and dry with evidence of good perfusion. - Neurologic Neurologic: Present: CNII-XII intact - Musculoskeletal Musculoskeletal: Present: gait normal, strength equal bilaterally - Psychiatric Psychiatric: Present: A&O x's 3, appropriate affect, intact judgment & insight - Allied health notes Allied health notes reviewed: nursing - Labs CBC & Chem 7: 06/19/17 05:50 06/19/17 05:50 Labs: Abnormal Lab Results - Last 24 Hours (Table) 06/19/17 06/19/17 06/20/17 Range/Units 16:30 20:53 11:42 POC Glucose (mg/dL) 154 H 110 H 133 H (75-99) mg/dL Microbiology - Last 24 Hours (Table) 06/17/17 08:51 Gram Stain - Preliminary Pericardial Fluid Body Fluid Culture - Preliminary 06/17/17 08:51 Gram Stain - Preliminary Heart Tissue Culture - Preliminary 06/17/17 08:51 Anaerobic Culture - Preliminary Pericardial Fluid - Imaging and Cardiology Chest x-ray: report reviewed, image reviewed Assessment and Plan (1) Elevated troponin Current Visit: Yes Status: Acute Code(s): R74.8 - ABNORMAL LEVELS OF OTHER SERUM ENZYMES SNOMED Code(s): 291055014 (2) History of asthma Current Visit: Yes Status: Chronic Code(s): Z87.09 - PERSONAL HISTORY OF OTHER DISEASES OF THE RESPIRATORY SYSTEM SNOMED Code(s): 313518046 (3) History of upper respiratory infection Current Visit: No Status: Resolved Code(s): Z87.09 - PERSONAL HISTORY OF OTHER DISEASES OF THE RESPIRATORY SYSTEM SNOMED Code(s): 072952634 (4) Pericardial effusion Current Visit: Yes Status: Acute Code(s): I31.3 - PERICARDIAL EFFUSION ( NONINFLAMMATORY) SNOMED Code(s): 082467079 (5) Thyroid disorder Current Visit: Yes Status: Chronic Code(s): E07.9 - DISORDER OF THYROID, UNSPECIFIED SNOMED Code(s): 46150718 Plan: 1. Continue aspirin, colchicine, prednisone. 2. Mediastinal chest tube discontinued. Patient may remove dressing and shower tomorrow. 3. Pain control with ordered medications. 4. GI/DVT prophylaxis. 5. Medical management per primary care service. 6. Encourage incentive spirometry use 10 times every hour. 7. Patient may be discharged home from our standpoint. Follow up appointment made with Dr. Mcdonald. Time with Patient: Greater than 30
--- NOTE | 2017-06-20 13:47 | P.PN ---
Subjective Progress Note Date: 06/20/17 Principal diagnosis: Pericardial effusion, bilateral pericardial effusions This is a very pleasant 66-year-old female patient who was originally admitted on 06/14/2017 with complaints of shortness of breath, chest tightness and congestion. She was found to have a moderate to severe paracardial effusion with suspected reactive myocarditis and admit seen and evaluated by cardiothoracic surgeons and subsequently a pericardial window was performed on 06/17/2017 with approximate 500 mL of serous fluid removed and a mediastinal chest tube was placed she is seen today on the selective care unit in follow- up. She is awake and alert in no acute distress. An additional 35 mL's of chest tube drainage was noted. Chest x-ray reveals some basilar effusions and associated atelectasis with confluent edema. She is maintaining O2 saturations in the 90s on room air. She's been hemodynamically stable. Afebrile. White count 14.5. Hemoglobin 11.3. Creatinine 1.00. She remains on aspirin, colchicine and prednisone. She is working well at the incentive spirometer. The patient is seen again today 06/19/2017 in follow-up on the selective care unit. She is currently sitting up in bed. She is awake and alert in no acute distress. She is postoperative need #2 pericardial window. The fluid and tissue are negative for malignancy. Minimal output. Plans for possible removal of mediastinal chest tube later today. The ultrasound of the pleural effusions did reveal significant 6.3 cm fluid pocket on the right and 8.4 cm pocket on the left. The plans are for thoracentesis today with Dr. Dickerson. She is currently maintaining good O2 saturations in the 90s on room air. She's been afebrile. Hemodynamically stable. Cultures are pending. White count 13.3. Hemoglobin 11.5. Creatinine 1.02. On 06/20/2017 patient is seen and examined again. CT surgery has removed her mediastinal chest tube, this is postop day 3 status post pericardial window. Pericardial fluid and pericardial biopsy results are negative for any evidence of malignancy. Minimal output from the mediastinum in last 24 hours. His chest x-ray was reviewed and showed bibasilar effusions and associated atelectasis, however there are small in size, and do not warrant thoracentesis at this time. Patient is on room air, with O2 sat 96%. Afebrile, vital signs are stable. She has been ambulating, and tolerating ambulation well. Lung sounds are clear, diminished at the bases, respirations are even and nonlabored. Objective - Vital Signs Vital signs: Vital Signs Temp 97.0 F L 06/20/17 11:07 Pulse 105 H 06/20/17 11:49 Resp 18 06/20/17 11:49 BP 131/77 06/20/17 11:07 Pulse Ox 96 06/20/17 11:07 Intake & Output 06/19/17 06/20/17 06/20/17 18:59 06:59 18:59 Intake Total 640 120 Output Total 400 Balance 240 120 Weight 59.1 kg Intake: Oral 640 120 Output: Urine 400 Other: Voiding Method Toilet Toilet Toilet # Voids 1 1 - Exam No acute distress, oriented 3. HEENT examination is grossly unremarkable. Mucous membranes are moist. No oral lesions. Neck supple. Full range of motion. No adenopathy thyromegaly or neck vein distention. Cardiovascular examination reveals regular rhythm rate. S1-S2 normal. No S3 or S4. No discernible murmur noted. Mediastinal chest tube was discontinued. Lungs reveal mostly clear breath sounds, diminished at the bases, no crackles, no rhonchi or wheezes noted on today's exam. Abdomen soft bowel sounds are heard. No masses or tenderness. Extremities are intact. No cyanosis clubbing or edema. Skin is without rash or lesion. Neurologic examination is brief but nonfocal. - Labs CBC & Chem 7: 06/19/17 05:50 06/19/17 05:50 Labs: Abnormal Lab Results - Last 24 Hours (Table) 06/19/17 06/19/17 06/20/17 Range/Units 16:30 20:53 11:42 POC Glucose (mg/dL) 154 H 110 H 133 H (75-99) mg/dL Microbiology - Last 24 Hours (Table) 06/17/17 08:51 Anaerobic Culture - Preliminary Heart 06/17/17 08:51 Gram Stain - Preliminary Pericardial Fluid Body Fluid Culture - Preliminary 06/17/17 08:51 Gram Stain - Preliminary Heart Tissue Culture - Preliminary 06/17/17 08:51 Anaerobic Culture - Preliminary Pericardial Fluid Assessment and Plan Plan: Assessment: 1 pericardial effusion likely related to viral pericarditis. Status post pericardial window and fluid and tissue negative for malignancy. Cultures reveal no growth to date. Mediastinal chest tube was removed today 2 bilateral pleural effusion left greater than right, bilateral pleural effusions are small in appearance, patient denies any dyspnea, maintaining stable oxygenation on room air. Plans for thoracentesis at this time. 3 chronic bronchial moderate persistent bronchial asthma 4 hypothyroidism Plan: Encouraging incentive spirometry, patient's mediastinal chest has been discontinued, her cardiac fluid and pericardial biopsy biopsies were negative for any malignancy. Vital signs are stable, encourage ambulation, chest x-ray was reviewed, shows small bilateral pleural effusions, they do not want thoracentesis at this time. Stable for discharge home from pulmonary standpoint. I performed a history & physical examination of the patient and discussed their management with my nurse practitioner, Lori Kirkland. I reviewed the nurse practitioner's note and agree with the documented findings and plan of care. Lung sounds are positive for diminished bibasilar lung sounds. The findings and the impression was discussed with the patient. I attest to the documentation by the nurse practitioner. Time with Patient: Less than 30
--- NOTE | 2017-06-20 14:31 | PN ---
PROGRESS NOTE Mrs. Thomas is a 66-year-old female who presented with pericardial effusion that was moderate to large in size, thought to be probably related to viral pericarditis. She underwent pericardial window. The tube was removed today. She is feeling well today. Her breathing is stable. She is ambulating without difficulty. The pleural effusion was not tapped and it was recommended to treat it conservatively. She continued to be on aspirin, colchicine, and a tapering dose of prednisone. PHYSICAL EXAMINATION: Blood pressure 130/70 with a heart in 90s. LUNGS: With decreased breath sounds more on the left side. HEART: Irregular rate and rhythm, S1, S2. No S3. No rub appreciated. ABDOMEN: Soft and nontender. EXTREMITIES: No edema. LAB DATA: Lab data revealed BUN and creatinine 15 and 1.02 from yesterday. IMPRESSION: 1. Status post pericardial effusion with window, probably viral. 2. Pleural effusion, stable. 3. Hypothyroidism. RECOMMENDATION: From the cardiac standpoint, she should be able to be discharged home today and follow as an outpatient with Dr. Fierro. MMLEOL / MARVINN: [id number] /
== END 2017-06-20 15:17 | disposition home or self-care (01) | DRG 271 ==
LOC: EC 13:20 → 6ICU 15:12 → 6SEL 06-16 12:19
PROVIDERS: ADMIT Internal Medicine; ATTEND Internal Medicine
PROC: 0W9D00Z Drainage of Pericardial Cavity with Drainage Device, Open Approach (ICD-10-PCS; principal; 2017-06-17 07:30)
DX: I30.1 Infective pericarditis (principal); J90 Pleural effusion, not elsewhere classified; I51.4 Myocarditis, unspecified; I08.1 Rheumatic disorders of both mitral and tricuspid valves; E03.9 Hypothyroidism, unspecified; I45.10 Unspecified right bundle-branch block; R77.8 Other specified abnormalities of plasma proteins; G47.00 Insomnia, unspecified; R01.1 Cardiac murmur, unspecified; J45.40 Moderate persistent asthma, uncomplicated; R00.0 Tachycardia, unspecified; K21.9 Gastro-esophageal reflux disease without esophagitis; M81.0 Age-related osteoporosis without current pathological fracture; I49.3 Ventricular premature depolarization; Z88.1 Allergy status to other antibiotic agents; Z88.2 Allergy status to sulfonamides; Z88.8 Allergy status to other drugs, medicaments and biological substances; Z79.899 Other long term (current) drug therapy; Z80.1 Family history of malignant neoplasm of trachea, bronchus and lung; Z87.891 Personal history of nicotine dependence; Z90.49 Acquired absence of other specified parts of digestive tract; Z87.01 Personal history of pneumonia (recurrent); Z87.442 Personal history of urinary calculi; Z82.49 Family history of ischemic heart disease and other diseases of the circulatory system; Z87.440 Personal history of urinary (tract) infections; Z98.82 Breast implant status; Z83.49 Family history of other endocrine, nutritional and metabolic diseases; Z87.09 Personal history of other diseases of the respiratory system
CPT/HCPCS: 36415; 71045; 71046; 71275; 72125; 74177; 76604; 80048; 80053; 80061; 80306; 81001; 82550; 82553; 82945; 83036; 83615; 83690; 83735; 83880; 84100; 84157; 84443; 84484; 85025; 85379; 85610; 85652; 85730; 86038; 86140; 86850; 86900; 86901; 87070; 87075; 87205; 87252; 87496; 87498; 87529; 87798; 88108; 88305; 89050; 93005; 93306; 94640; 94760; 96360; 96361; 99291

== ENCOUNTER 2018-10-28 01:45 | Inpatient (IN) | payer MEDICARE, BC ==
[2018-10-28] MEDS ORDERED: IPRATROPIUM 0.5 MG/2.5 ML NEBU INHALATION STA (01:59)
[2018-10-28] MEDS ORDERED: ALBUTEROL NEBULIZED 2.5 MG/3 ML INHALATION STA (01:59)
[2018-10-28] MEDS ORDERED: SODIUM CHLORIDE 0.9% 500 ML 500 ML IV STA (02:18)
[2018-10-28] MEDS ORDERED: methylPREDNISolone SOD SUCCI 125 MG/2 ML VIAL IV STA (02:19)
[2018-10-28 03:14] LABS: Basophils # (A) 0.1 k/uL (0-0.2); Basophils % (A) 1 %; Eosinophils # (A) 1.5 k/uL (0-0.7); Eosinophils % (A) 13 %; HCT 41.1 % (34.0-46.0); HGB 13.6 gm/dL (11.4-16.0); Lymphocytes # (A) 6.9 k/uL (1.0-4.8); Lymphocytes % (A) 59 %; MCH 33.6 pg (25.0-35.0); MCHC 33.2 g/dL (31.0-37.0); MCV 101.3 fL (80.0-100.0); Macrocytosis Slight; Mean Platelet Volume 7.4; Monocytes # (A) 0.2 k/uL (0-1.0); Monocytes % (A) 2 %; Neutrophils # (A) 2.8 k/uL (1.3-7.7); Neutrophils % (A) 24 %; Platelet Count 212 k/uL (150-450); RBC 4.06 m/uL (3.80-5.40); RDW 13.5 % (11.5-15.5); WBC 11.7 k/uL (3.8-10.6)
[2018-10-28 03:25] LABS: Albumin 4.3 g/dL (3.5-5.0); Calcium 9.7 mg/dL (8.4-10.2); Potassium 4.6 mmol/L (3.5-5.1); Total Bilirubin 0.4 mg/dL (0.2-1.3); Total Protein 7.4 g/dL (6.3-8.2)
--- NOTE | 2018-10-28 03:31 | XR ---
EXAM: XR Chest, 2 Views CLINICAL HISTORY: ITS.REASON XR Reason: difficulty breathing TECHNIQUE: Frontal and lateral views of the chest. COMPARISON: No relevant prior studies available. FINDINGS: Lungs: Unremarkable. No consolidation. Pleural space: Unremarkable. No pneumothorax. Heart: No suspicious enlargement. Mediastinum: Unremarkable. Bones/joints: No acute fracture. IMPRESSION: No acute findings.
[2018-10-28 03:45] LABS: D-Dimer 0.34 mg/L FEU (<0.60); INR 0.9 (<1.2); Partial Thromboplastin Time 24.7 sec (22.0-30.0); Prothrombin Time 9.9 sec (9.0-12.0)
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
[2018-10-28 04:07] LABS: Anisocytosis (M) Present
[2018-10-28] MEDS ORDERED: NALOXONE 0.4 MG/ML 1 ML VIAL IV PRN (04:39)
[2018-10-28] MEDS ORDERED: IPRATROPIUM-ALBUTEROL 3 ML NEB INHALATION PRN (04:40)
[2018-10-28 06:06] VITALS: BMI 22.8
[2018-10-28] MEDS ORDERED: ACETAMINOPHEN TAB 325 MG TAB PO PRN (06:25)
[2018-10-28] MEDS: IPRATROPIUM-ALBUTEROL 3 ML NEB INHALATION SCH ×4 (06:52→20:09)
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
[2018-10-28] MEDS: LEVOTHYROXINE 50 MCG TAB PO SCH (07:29)
[2018-10-28] MEDS: HEPARIN SODIUM,PORCINE 5,000 UNIT/ML 1 ML VIAL SQ SCH ×2 (08:47→16:07)
[2018-10-28] MEDS: methylPREDNISolone SOD SUCCI 125 MG/2 ML VIAL IV SCH ×3 (08:48→18:37)
[2018-10-28] MEDS: guaiFENesin 600 MG TABLET.ER PO SCH ×2 (08:50→21:19)
[2018-10-28] MEDS: METOPROLOL TARTRATE 12.5 MG TAB PO SCH ×2 (08:50→21:19)
[2018-10-28] MEDS: FORMOTEROL FUMARATE 20 MCG/2 ML NEBU INHALATION SCH ×2 (09:02→20:08)
[2018-10-28] MEDS ORDERED: AZITHROMYCIN 500 MG TAB PO STA (09:02)
--- NOTE | 2018-10-28 10:50 | P.PN ---
Progress Note - Text Progress Note Date: 10/28/18 Briefly this is a 67-year-old female with a history of intermittent childhood asthma was admitted for acute asthma exacerbation triggered by acute bronchitis symptoms of productive cough shortness of breath over the last 7-10 days that presented with hypoxic respiratory failure and is initiated on regimen of systemic steroids scheduled and Prn bronchodilator DuoNeb breathing treatments, we'll add Mucinex and inhaled Perforomist as well as initiate the patient on a Z-Evangelist. We'll continue to monitor closely. Patient otherwise doing well and is hemodynamically stable and reports that her breathing is much improved. On exam she does sound course with expiratory wheezes with good aeration. We'll continue to follow
--- NOTE | 2018-10-28 12:02 | CONS ---
CONSULTATION PULMONARY/CRITICAL CARE CONSULTATION DATE OF CONSULTATION: 10/28/2018 This is a 67-year-old female with a history of COPD/asthma. She used to see my partner, Dr. Dickerson, but has not seen him for about a year and a half. She has seen our nurse practitioner, Leticia, in the past as well. Anyway, she presents to the emergency room with complaints of shortness of breath. This has been going on for a couple days prior to admission. She thought it was related to allergies. She started coughing. Could not cough up much phlegm. Then she started wheezing. She used her rescue inhaler without much benefit. She also attempted to use some cough syrup in the form of Robitussin. When she states that things did not improve despite breathing treatments or Ventolin inhaler or Robitussin, and other medications, she decided to come to the emergency room to be evaluated. She denies any fever or chills. She denies any chest pain or chest discomfort. No nausea, vomiting or diarrhea. She does have chest tightness. The patient does have a history of tobacco use for over 25 years. She does not smoke currently. She is feeling a bit better currently than she was when she first came in. She has been treated with the usual things including short- acting beta agonist, short-acting muscarinic antagonist, long-acting beta agonist, inhaled corticosteroids, systemic corticosteroids and oral antibiotics. Her chest x- ray was evaluated. It did not show an acute infiltrate. MEDICATIONS: Her medications at home include albuterol inhaler in the form of Ventolin updrafts with albuterol, calcium magnesium zinc tablet, Felicia C, levothyroxine, Dulera, which she never mentioned in the interview, multivitamins, vitamin E, Tylenol, aspirin, colchicine and prednisone. ALLERGIES: Allergies include CEFACLOR, CIPROFLOXACIN, CLARITHROMYCIN and SULFA ANTIBIOTICS. PAST MEDICAL HISTORY: Her past medical history includes COPD/asthma as well as hypothyroidism and apparently pneumonia. She also has a history of kidney stones, sinusitis, borderline osteoporosis, and some other minor medical problems. SURGICAL HISTORY: Surgical history includes previous cholecystectomy, surgery to unblock her fallopian tube, D and C, breast implants. SOCIAL HISTORY: Positive for previous tobacco use. She smoked for about 25 years or so less than a pack a day. She drinks occasionally. Denies any illicit drug use. FAMILY HISTORY: Family history is positive for a mother with hyperlipidemia and hypertension. Father has a history of tuberculosis and alcohol abuse. She has a grandfather with lung cancer. She also had some other family members who were reasonably healthy. REVIEW OF SYSTEMS: CONSTITUTIONAL: Negative. NEUROLOGIC: Negative. HEENT: Negative. CARDIOVASCULAR: Negative. PULMONARY: Shortness of breath, chest tightness, wheezing, cough, minimal phlegm production. GI: Negative. : Negative. RHEUMATOLOGIC: Negative. IMMUNOLOGIC: Negative. Endocrinologic: Negative. DERMATOLOGIC: Negative. PHYSICAL EXAMINATION: VITAL SIGNS: Current vital signs are reviewed. Temperature is 98.1, heart rate 88, respiratory rate 20, blood pressure 120/76, mean 90, three-liter saturation 97%. GENERAL: Appears in no acute distress. HEENT: Examination is grossly unremarkable. Mucous membranes are moist. NECK: Supple. Full range of motion. No adenopathy or thyromegaly. Neck veins are flat. CARDIOVASCULAR: Examination reveals regular rhythm and rate. Heart rate in the 80s. S1, S2 normal. No murmur. No S3, S4. LUNGS: Reveal coarse inspiratory and expiratory wheezes and rhonchi. Breath sounds are diminished. There is prolongation on forced maneuver. ABDOMEN: Soft. Bowel sounds are heard. EXTREMITIES: Are intact. No cyanosis, clubbing or edema. SKIN: Without rash. NEUROLOGIC: Examination is brief but nonfocal. X-RAY: Chest x-ray shows no acute disease. LABS: Labs are reviewed. White count 11.7, hemoglobin 13.6, hematocrit 41.1, platelet count 212,000. PT, INR, PTT and D-dimer all normal. Electrolytes all normal. Glucose 120. MEDICATIONS: Medications are reviewed. She is on appropriate medications include albuterol and Atrovent updrafts, Pulmicort mixed with formoterol twice a day, Zithromax orally, and systemic corticosteroids. ASSESSMENT: 1. Chronic obstructive pulmonary disease exacerbation complicated by mild purulent tracheobronchitis, without shanae pneumonia. 2. Previous history of heavy tobacco use. 3. History of asthma. 4. History of hypothyroidism. 5. Previous history of pneumonia. 6. History of kidney stones. 7. History of sinusitis. 8. Borderline osteoporosis. PLAN: The patient is doing well. Her medications are appropriate. She will follow up with Dr. Dickerson in the clinic. She could also follow up with Dr. Florence. No additional recommendations are made. We ensured that she was on Pulmicort mixed with formoterol twice a day. The formoterol should be 20 mcg and the Pulmicort to 1 mg. Additional recommendations and suggestions are forthcoming. MMLEOL / IJN: [id number] / MTDD
[2018-10-28] MEDS: BUDESONIDE 1 MG/2 ML NEBU INHALATION SCH (20:09)
[2018-10-28] MEDS ORDERED: MELATONIN 3 MG TABLET PO SCH (21:00)
[2018-10-29] MEDS: IPRATROPIUM-ALBUTEROL 3 ML NEB INHALATION SCH ×3 (00:13→09:27)
[2018-10-29] MEDS: HEPARIN SODIUM,PORCINE 5,000 UNIT/ML 1 ML VIAL SQ SCH ×2 (00:18→08:42)
[2018-10-29] MEDS: methylPREDNISolone SOD SUCCI 125 MG/2 ML VIAL IV SCH ×2 (00:18→06:23)
[2018-10-29] MEDS ORDERED: IPRATROPIUM-ALBUTEROL 3 ML NEB ONE (04:00)
[2018-10-29] MEDS: LEVOTHYROXINE 50 MCG TAB PO SCH (06:24)
--- NOTE | 2018-10-29 08:00 | XR ---
EXAMINATION TYPE: XR chest 2V DATE OF EXAM: 10/29/2018 COMPARISON: 10/28/2018 TECHNIQUE: PA and lateral views submitted. HISTORY: Difficulty breathing FINDINGS: The lungs are clear and there is no pneumothorax, pleural effusion, or focal pneumonia. Biapical pl eural thickening. Hyperinflation suggests COPD. Chronic appearing superior endplate deformity upper t horacic spine. Surgical clips in the abdomen. IMPRESSION: 1. No acute process. Correlate for COPD.
[2018-10-29] MEDS: METOPROLOL TARTRATE 12.5 MG TAB PO SCH (08:42)
[2018-10-29] MEDS: guaiFENesin 600 MG TABLET.ER PO SCH (08:43)
[2018-10-29] MEDS ORDERED: AZITHROMYCIN 250 MG TAB PO SCH (09:00)
[2018-10-29] MEDS: BUDESONIDE 1 MG/2 ML NEBU INHALATION SCH (09:27)
[2018-10-29] MEDS: FORMOTEROL FUMARATE 20 MCG/2 ML NEBU INHALATION SCH (09:27)
[2018-10-29 10:27] VITALS: BP 104/54; PULSE 101; RESP 20; TEMP 97.8
--- NOTE | 2018-10-29 11:20 | P.DS ---
Providers Date of admission: 10/28/18 03:56 Expected date of discharge: 10/29/18 Attending physician: Roberto Loving MD Consults: 10/28/18 09:17 Consult Physician Routine Consulting Provider: Bright Ventura Reason/Comments: asthma exacerbation Do you want consulting provider notified?: Already Contacted Primary care physician: Katerin Whitlock - Discharge Diagnosis(es) (1) Acute exacerbation of COPD with asthma Current Visit: Yes Status: Acute (2) Acute respiratory failure Current Visit: Yes Status: Acute (3) Hypothyroidism Current Visit: Yes Status: Acute Hospital Course: The patient is a 67-year-old female that was admitted with acute COPD exacerbation with asthma triggered by tracheal bronchitis without shanae pneumonia after presenting with productive cough and worsening shortness of breath. The patient was noted to be in respiratory failure with hypoxia after noted desaturations in the ER down to 88% on room air, she was placed on supplemental oxygen and started on systemic steroids with IV Solu-Medrol, scheduled and prn bronchodilator DuoNeb breathing treatments q4/prn, Mucomyst, inhale Perforomist and azithromycin. With treatment the the patient responded well and was able to wean to room air having good aeration. She was subsequently discharged home in stable condition and instructed to follow-up with her PCP in 5-7 days. This discharge process took approximately 35 minutes. Focused exam Respiratory: Unlabored on room air, expiratory wheezes in the bases, good aeration Patient Condition at Discharge: Serious Plan - Discharge Summary New Discharge Prescriptions: New Fluticasone/Salmeterol [Advair 250-50 Diskus] 1 inhalation PO BID #1 inhaler predniSONE 50 mg PO DAILY #5 tab Azithromycin [Zithromax] 250 mg PO DAILY #3 tab Continue Vitamin E (Dl,Tocopheryl Acet) [Vitamin E] 400 unit PO DAILY Multivitamins, Thera [Multivitamin (formulary)] 1 tab PO DAILY Levothyroxine Sodium [Synthroid] 50 mcg PO DAILY Albuterol Inhaler [Ventolin Hfa Inhaler] 2 puff INHALATION RT-Q6H PRN PRN Reason: Shortness Of Breath Metoprolol Tartrate [Lopressor] 12.5 mg PO BID Cholecalciferol [Vitamin D3 (25 Mcg = 1000 Iu)] 1,000 unit PO DAILY Vitamin B Complex 1 cap PO DAILY Milton-3 Fatty Acids/Fish Oil [Fish Oil 1,000 mg Softgel] 1 cap PO DAILY Calcium Carbonate [Calcium] 600 mg PO DAILY Albuterol Nebulized [Ventolin Nebulized] 2.5 mg INHALATION RT-Q6H PRN #30 PRN Reason: Shortness Of Breath Discharge Medication List Albuterol Inhaler [Ventolin Hfa Inhaler] 2 puff INHALATION RT-Q6H PRN 06/14/17 [History] Levothyroxine Sodium [Synthroid] 50 mcg PO DAILY 06/14/17 [History] Multivitamins, Thera [Multivitamin (formulary)] 1 tab PO DAILY 06/14/17 [History] Vitamin E (Dl,Tocopheryl Acet) [Vitamin E] 400 unit PO DAILY 06/14/17 [History] Calcium Carbonate [Calcium] 600 mg PO DAILY 10/28/18 [History] Cholecalciferol [Vitamin D3 (25 Mcg = 1000 Iu)] 1,000 unit PO DAILY 10/28/18 [History] Metoprolol Tartrate [Lopressor] 12.5 mg PO BID 10/28/18 [History] Milton-3 Fatty Acids/Fish Oil [Fish Oil 1,000 mg Softgel] 1 cap PO DAILY 10/28/18 [History] Vitamin B Complex 1 cap PO DAILY 10/28/18 [History] Albuterol Nebulized [Ventolin Nebulized] 2.5 mg INHALATION RT-Q6H PRN #30 10/29/18 [Rx] Azithromycin [Zithromax] 250 mg PO DAILY #3 tab 10/29/18 [Rx] Fluticasone/Salmeterol [Advair 250-50 Diskus] 1 inhalation PO BID #1 inhaler 10/29/18 [Rx] predniSONE 50 mg PO DAILY #5 tab 10/29/18 [Rx] Follow up Appointment(s)/Referral(s): Katerin Whitlock MD [Primary Care Provider] - 11/05/18 4:10 pm
--- NOTE | 2018-10-29 11:43 | P.PN ---
Subjective Progress Note Date: 10/29/18 Principal diagnosis: Acute exacerbation of COPD/asthma On 10/29/2018 patient seen in follow-up. She is improving, sounding better today, but still somewhat bronchospastic, but moving good air, room air pulse ox is 96%, she is afebrile, hemodynamically stable. No new blood work today, no new chest x-rays, patient has been treated with IV steroids, nebulized bronchodilators, and empiric antibiotics, she is improving, tolerating ambulation, she is on room air. No acute issues overnight, patient is being discharged home today. Objective - Vital Signs Vital signs: Vital Signs Temp 97.8 F 10/29/18 08:44 Pulse 94 10/29/18 09:52 Resp 20 10/29/18 08:44 BP 104/54 10/29/18 08:44 Pulse Ox 96 10/29/18 08:44 Intake & Output 10/28/18 10/29/18 10/29/18 18:59 06:59 18:59 Other: # Voids 2 1 1 - Exam GENERAL EXAM: Alert, pleasant, 67-year-old white female, on room air, comfortable in no apparent distress. HEAD: Normocephalic/atraumatic. EYES: Normal reaction of pupils, equal size. Conjunctiva pink, sclera white. NOSE: Clear with pink turbinates. THROAT: No erythema or exudates. NECK: No masses, no JVD, no thyroid enlargement, no adenopathy. CHEST: No chest wall deformity. Symmetrical expansion. LUNGS: Equal air entry with scattered wheezes, rhonchi or dullness. CVS: Regular rate and rhythm, normal S1 and S2, no gallops, no murmurs, no rubs ABDOMEN: Soft, nontender. No hepatosplenomegaly, normal bowel sounds, no guarding or rigidity. EXTREMITIES: No clubbing, no edema, no cyanosis, 2+ pulses and upper and lower extremities. MUSCULOSKELETAL: Muscle strength and tone normal. SPINE: No scoliosis or deformity SKIN: No rashes CENTRAL NERVOUS SYSTEM: Alert and oriented -3. No focal deficits, tone is normal in all 4 extremities. PSYCHIATRIC: Alert and oriented -3. Appropriate affect. Intact judgment and insight. - Labs CBC & Chem 7: 10/28/18 02:39 10/28/18 02:39 Assessment and Plan Plan: Assessment: #1. Acute exacerbation of chronic obstructive pulmonary disease complicated by minimal purulent tracheobronchitis, without evidence of recurrent pneumonia #2. Previous history of heavy tobacco use #3. History of mild intermittent bronchial asthma #4. History of hypothyroidism #5. Previous history of pneumonia #6. History of nephrolithiasis #7. History of sinusitis, #8. Osteoporosis Plan: Patient is stable for discharge home today, still mildly wheezy, but overall significantly improved since admission. She came in discharge home on prednisone taper, she can finish outpatient course of antibiotics, she can resume her inhalers, she will need follow-up appointment in the office by Dr. Dickerson/Dr. Florence. I performed a history & physical examination of the patient and discussed their management with my nurse practitioner, Lori Kirkland. I reviewed the nurse practitioner's note and agree with the documented findings and plan of care. Lung sounds are positive for scattered wheezes. The findings and the impression was discussed with the patient. I attest to the documentation by the nurse practitioner. Time with Patient: Less than 30
== END 2018-10-29 12:30 | disposition home or self-care (01) | DRG 190 ==
LOC: EC 01:45 → 6PED 03:56
PROVIDERS: ADMIT Internal Medicine; ATTEND Internal Medicine
DX: J44.0 Chronic obstructive pulmonary disease with (acute) lower respiratory infection (principal); J96.01 Acute respiratory failure with hypoxia; J45.21 Mild intermittent asthma with (acute) exacerbation; J44.1 Chronic obstructive pulmonary disease with (acute) exacerbation; J20.9 Acute bronchitis, unspecified; E03.9 Hypothyroidism, unspecified; I10 Essential (primary) hypertension; M81.0 Age-related osteoporosis without current pathological fracture; M26.609 Unspecified temporomandibular joint disorder, unspecified side; Z87.891 Personal history of nicotine dependence; Z79.890 Hormone replacement therapy; Z79.899 Other long term (current) drug therapy; Z87.01 Personal history of pneumonia (recurrent); Z87.442 Personal history of urinary calculi; Z90.49 Acquired absence of other specified parts of digestive tract; Z98.82 Breast implant status; Z79.82 Long term (current) use of aspirin; Z88.1 Allergy status to other antibiotic agents; Z88.2 Allergy status to sulfonamides; Z83.49 Family history of other endocrine, nutritional and metabolic diseases; Z82.49 Family history of ischemic heart disease and other diseases of the circulatory system; Z83.1 Family history of other infectious and parasitic diseases; Z81.1 Family history of alcohol abuse and dependence; Z80.1 Family history of malignant neoplasm of trachea, bronchus and lung
CPT/HCPCS: 36415; 71046; 80053; 84484; 85025; 85379; 85610; 85730; 93005; 94640; 96374; 99285

== ENCOUNTER 2019-05-09 15:22 | Inpatient (IN) | payer MEDICARE, BC ==
[2019-05-09] MEDS ORDERED: SODIUM CHLORIDE 0.9% 1,000 ML IV STA (16:11)
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
[2019-05-09 17:17] LABS: Albumin 3.8 g/dL (3.5-5.0); C Reactive Protein 53.8 mg/L (<10.0); Calcium 8.4 mg/dL (8.4-10.2); Magnesium 2.5 mg/dL (1.6-2.3); Potassium 4.2 mmol/L (3.5-5.1); Total Bilirubin 0.6 mg/dL (0.2-1.3); Total Protein 7.2 g/dL (6.3-8.2)
[2019-05-09 17:19] LABS: HCT 30.2 % (34.0-46.0); HGB 10.4 gm/dL (11.4-16.0); MCH 33.9 pg (25.0-35.0); MCHC 34.5 g/dL (31.0-37.0); MCV 98.3 fL (80.0-100.0); Mean Platelet Volume 7.9; Platelet Count 254 k/uL (150-450); RBC 3.07 m/uL (3.80-5.40); RDW 13.4 % (11.5-15.5); WBC 21.6 k/uL (3.8-10.6)
[2019-05-09 17:20] LABS: INR 1.1 (<1.2); Partial Thromboplastin Time 24.4 sec (22.0-30.0); Prothrombin Time 11.7 sec (9.0-12.0)
[2019-05-09 17:25] LABS: D-Dimer 1.32 mg/L FEU (<0.60)
[2019-05-09 17:35] LABS: Eosinophils # (M) 6.91 k/uL (0-0.7); Lymphocytes # (M) 8.64 k/uL (1.0-4.8); Monocytes # (M) 0.22 k/uL (0-1.0); Neutrophils # (M) 5.83 k/uL (1.3-7.7); Neutrophils % (M) 27 %; Nucleated Red Blood Cells 0 /100 WBC (0-0); Total Cells Counted 100
--- NOTE | 2019-05-09 17:38 | XR ---
EXAMINATION TYPE: XR chest 2V DATE OF EXAM: 05/09/2019 COMPARISON: 10/29/2018 HISTORY: Short of breath TECHNIQUE: FINDINGS: Heart is enlarged. There is pulmonary vascular congestion. There is blunting of the costoph renic angles. There are chest leads. Bony thorax is intact. Some pleural thickening at the lung apices consistent with scarring unchanged. IMPRESSION: Mild chronic congestive heart failure that is new compared to last exam. Small pleural ef fusions.
[2019-05-09 18:20] LABS: Appearance,Urine Cloudy (Clear); Bilirubin,Urine Negative (Negative); Blood,Urine Moderate (Negative); Color,Urine Yellow; Glucose,Urine (UA) Negative (Negative); Hyaline Casts,Urine 19 /lpf (0-2); Ketones,Urine Trace (Negative); Leukocyte Esterase,Urine Small (Negative); Mucus,Urine Occasional /hpf; Nitrite,Urine Negative (Negative); PH, Urine 5.5 (5.0-8.0); Protein,Urine 1+ (Negative); RBC,Urine 42 /hpf (0-5); Specific Gravity,Urine 1.028 (1.001-1.035); Squamous Epithelial Cell,Urine <1 /hpf (0-4); WBC,Urine 14 /hpf (0-5)
[2019-05-09] MEDS ORDERED: ASPIRIN 325 MG TAB PO STA (18:29)
[2019-05-09] MEDS ORDERED: NALOXONE 0.4 MG/ML 1 ML VIAL IV PRN (18:31)
[2019-05-09] MEDS ORDERED: HEPARIN SODIUM,PORCINE 5,000 UNIT/ML 1 ML VIAL IV PRN (18:32)
[2019-05-09] MEDS ORDERED: HEPARIN SODIUM,PORCINE 5,000 UNIT/ML 1 ML VIAL IV ONE (18:32)
[2019-05-09] MEDS ORDERED: FUROSEMIDE 10 MG/ML 4 ML VIAL IV SCH (19:00)
--- NOTE | 2019-05-09 19:06 | US ---
EXAMINATION TYPE: US venous doppler duplex LE DATE OF EXAM: 05/09/2019 6:29 PM COMPARISON: NONE CLINICAL HISTORY: thrombus. SOB. No leg swelling. No redness. No leg pain. No hx blood clots. No t on blood thinners. SIDE PERFORMED: Bilateral TECHNIQUE: The lower extremity deep venous system is examined utilizing real time linear array sonog shae with graded compression, doppler sonography and color-flow sonography. VESSELS IMAGED: External Iliac Vein (EIV) Common Femoral Vein Deep Femoral Vein Greater Saphenous Vein * Femoral Vein Popliteal Vein Small Saphenous Vein * Proximal Calf Veins (* superficial vessels) Right Leg: Negative for DVT Left Leg: Negative for DVT IMPRESSION: No evidence of deep venous thrombosis in the left leg and right leg.
[2019-05-09] MEDS: NITROGLYCERIN OINT 1 INCH/GM PACKET TOPICAL SCH ×2 (19:11→23:00)
--- NOTE | 2019-05-09 20:23 | NM ---
EXAMINATION TYPE: NM pul vent and perfuse DATE OF EXAM: 05/09/2019 COMPARISON: NONE HISTORY: TECHNIQUE: Utilizing inhalation of 71.7 mCi Tc 99m DTPA aerosol and intravenous injection of 5.0 mCi of Tc 99m MAA, ventilation and perfusion images are acquired post injection in multiple projections. FINDINGS: There are numerous matching subsegmental perfusion and ventilation defects in both lungs. There is pu lmonary edema on the chest x-ray and pulmonary hyperinflation. There is no ventilation/perfusion mism atch. There are matching defects at the lung bases related to small pleural effusions. IMPRESSION: Numerous matching defects correspond to a low to intermediate probability of pulmonary embolism. Bila teral airway disease.
[2019-05-09] MEDS: HEPARIN SOD,PORK IN 0.45% NACL 25,000 UNIT in 0.45% NACL 1 250ML.BAG IV SCH (20:44)
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
[2019-05-10] MEDS: predniSONE 20 MG TAB PO SCH ×3 (00:01→20:19)
[2019-05-10 00:21] LABS: Troponin I 1.85 ng/mL (0.000-0.034)
[2019-05-10] MEDS: COLCHICINE 0.6 MG EACH PO SCH ×2 (00:37→09:40)
[2019-05-10 07:14] LABS: INR 1.2 (<1.2); Prothrombin Time 12.1 sec (9.0-12.0)
[2019-05-10 07:16] LABS: HCT 28.9 % (34.0-46.0); HGB 9.5 gm/dL (11.4-16.0); MCH 32.6 pg (25.0-35.0); MCV 98.8 fL (80.0-100.0); Mean Platelet Volume 8.7; Platelet Count 258 k/uL (150-450); RBC 2.93 m/uL (3.80-5.40); RDW 13.5 % (11.5-15.5); WBC 18.8 k/uL (3.8-10.6)
[2019-05-10 07:19] LABS: Albumin 3.7 g/dL (3.5-5.0); Calcium 8.4 mg/dL (8.4-10.2); Magnesium 2.4 mg/dL (1.6-2.3); Phosphorus 4.4 mg/dL (2.5-4.5); Potassium 4.6 mmol/L (3.5-5.1); Total Bilirubin 0.6 mg/dL (0.2-1.3); Total Protein 7.1 g/dL (6.3-8.2)
[2019-05-10 07:38] LABS: Creatine Kinase MB 8.2 ng/mL (0.0-2.4)
[2019-05-10 07:40] LABS: Troponin I 1.76 ng/mL (0.000-0.034)
[2019-05-10 08:24] LABS: Anisocytosis (M) Present; Eosinophils # (M) 6.02 k/uL (0-0.7); Lymphocytes # (M) 7.71 k/uL (1.0-4.8); Monocytes # (M) 0.19 k/uL (0-1.0); Neutrophils # (M) 4.89 k/uL (1.3-7.7); Neutrophils % (M) 26 %; Nucleated Red Blood Cells 0 /100 WBC (0-0); Total Cells Counted 100
[2019-05-10] MEDS ORDERED: ASPIRIN 325 MG TAB PO SCH (09:00)
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
[2019-05-10] MEDS: NITROGLYCERIN OINT 1 INCH/GM PACKET TOPICAL SCH (09:41)
[2019-05-10] MEDS: METOPROLOL TARTRATE 25 MG TAB PO SCH ×2 (12:18→20:19)
[2019-05-10] MEDS ORDERED: FUROSEMIDE 10 MG/ML 4 ML VIAL IV STA (12:36)
--- NOTE | 2019-05-10 15:35 | P.PN ---
Subjective Progress Note Date: 05/10/19 Principal diagnosis: Elevated troponin/rash Patient was seen and examined. No acute events overnight. Patient reports slight improvement in her breathing since admission. She does report continuation of her rash which initially started on her bilateral flanks and back. Her rash progressively spread to the palms and her soles. Patient states they were initially itchy and not painful. She denies any tick bites. She denies any history of traveling. She denies any chest pain or palpitations. No nausea or vomiting. No fever or chills. No abdominal pain. No changes in urination or bowel habits. No cough or hemoptysis. Objective - Vital Signs Vital signs: Vital Signs Temp 97.7 F 05/10/19 12:18 Pulse 103 H 05/10/19 12:18 Resp 18 05/10/19 12:18 BP 127/90 05/10/19 12:18 Pulse Ox 96 05/10/19 12:18 Intake & Output 05/09/19 05/10/19 05/10/19 17:59 06:59 18:59 Intake Total 227.253 Balance 227.253 Weight Intake: IV 160 Sodium Chloride 0.9% 1, 160 000 ml @ 20 mls/hr IV . Q24H [facility] Rx#:[id number] Intake, IV Titration 47.253 Amount Heparin Sod,Pork in 0.45% 47.253 NaCl 25,000 unit In 0.45 % NaCl 1 250ml.bag @ 12 UNITS/KG/HR 7.637 mls/hr IV .Q24H [facility] Rx#: [id number] Oral 20 Other: Voiding Method Toilet # Voids 1 - Exam General: [non toxic], [no distress], [appears at stated age] Derm: [warm], [dry] Head: [atraumatic], [normocephalic], [symmetric] Eyes: [EOMI], [no lid lag], [anicteric sclera] Mouth: [no lip lesion], [mucus membranes moist] Cardiovascular: [S1S2 reg], [no murmur], [positive posterior tibial pulse bilateral], Lungs: [CTA bilateral], [no rhonchi, no rales] , [no accessory muscle use] Abdominal: [soft], [ nontender to palpation], [no guarding], [no appreciable or ganomegaly] Ext: [no gross muscle atrophy], [no edema], [no contractures], [macular rash in the palms bilaterally and soles] Neuro: [no focal neuro deficits] Psych: [Alert], [oriented], [appropriate affect] - Labs CBC & Chem 7: 05/10/19 05:27 05/10/19 05:27 Labs: Abnormal Lab Results - Last 24 Hours (Table) 05/09/19 05/09/19 05/09/19 Range/Units 16:50 16:50 16:50 WBC 21.6 H (3.8-10.6) k/uL RBC 3.07 L (3.80-5.40) m/uL Hgb 10.4 L (11.4-16.0) gm/dL Hct 30.2 L (34.0-46.0) % Lymphocytes # (Manual) 8.64 H (1.0-4.8) k/uL Eosinophils # (Manual) 6.91 H (0-0.7) k/uL ESR (0-20) mm/hr PT (9.0-12.0) sec INR (<1.2) APTT (22.0-30.0) sec D-Dimer 1.32 H (<0.60) mg/L FEU Sodium 134 L (137-145) mmol/L Carbon Dioxide (22-30) mmol/L BUN 28 H (7-17) mg/dL Creatinine 1.54 H (0.52-1.04) mg/dL Glucose 142 H (74-99) mg/dL Magnesium 2.5 H (1.6-2.3) mg/dL AST 44 H (14-36) U/L ALT 43 H (4-34) U/L Creatine Kinase 213 H (30-135) U/L CK-MB (CK-2) (0.0-2.4) ng/mL Troponin I (0.000-0.034) ng/mL C-Reactive Protein 53.8 H (<10.0) mg/L Urine Appearance (Clear) Urine Protein (Negative) Urine Ketones (Negative) Urine Blood (Negative) Ur Leukocyte Esterase (Negative) Urine RBC (0-5) /hpf Urine WBC (0-5) /hpf Hyaline Casts (0-2) /lpf Urine Mucus (None) /hpf 05/09/19 05/09/19 05/09/19 Range/Units 16:50 18:05 23:14 WBC (3.8-10.6) k/uL RBC (3.80-5.40) m/uL Hgb (11.4-16.0) gm/dL Hct (34.0-46.0) % Lymphocytes # (Manual) (1.0-4.8) k/uL Eosinophils # (Manual) (0-0.7) k/uL ESR (0-20) mm/hr PT (9.0-12.0) sec INR (<1.2) APTT (22.0-30.0) sec D-Dimer (<0.60) mg/L FEU Sodium (137-145) mmol/L Carbon Dioxide (22-30) mmol/L BUN (7-17) mg/dL Creatinine (0.52-1.04) mg/dL Glucose (74-99) mg/dL Magnesium (1.6-2.3) mg/dL AST (14-36) U/L ALT (4-34) U/L Creatine Kinase (30-135) U/L CK-MB (CK-2) 7.0 H (0.0-2.4) ng/mL Troponin I 1.880 H* 1.850 H* (0.000-0.034) ng/mL C-Reactive Protein (<10.0) mg/L Urine Appearance Cloudy H (Clear) Urine Protein 1+ H (Negative) Urine Ketones Trace H (Negative) Urine Blood Moderate H (Negative) Ur Leukocyte Esterase Small H (Negative) Urine RBC 42 H (0-5) /hpf Urine WBC 14 H (0-5) /hpf Hyaline Casts 19 H (0-2) /lpf Urine Mucus Occasional H (None) /hpf 05/10/19 05/10/19 05/10/19 Range/Units 05:27 05:27 05:27 WBC 18.8 H (3.8-10.6) k/uL RBC 2.93 L (3.80-5.40) m/uL Hgb 9.5 L (11.4-16.0) gm/dL Hct 28.9 L (34.0-46.0) % Lymphocytes # (Manual) 7.71 H (1.0-4.8) k/uL Eosinophils # (Manual) 6.02 H (0-0.7) k/uL ESR (0-20) mm/hr PT (9.0-12.0) sec INR (<1.2) APTT (22.0-30.0) sec D-Dimer (<0.60) mg/L FEU Sodium 134 L (137-145) mmol/L Carbon Dioxide 19 L (22-30) mmol/L BUN 34 H (7-17) mg/dL Creatinine 1.69 H (0.52-1.04) mg/dL Glucose 138 H (74-99) mg/dL Magnesium 2.4 H (1.6-2.3) mg/dL AST 61 H (14-36) U/L ALT 57 H (4-34) U/L Creatine Kinase (30-135) U/L CK-MB (CK-2) 8.2 H (0.0-2.4) ng/mL Troponin I 1.760 H* (0.000-0.034) ng/mL C-Reactive Protein (<10.0) mg/L Urine Appearance (Clear) Urine Protein (Negative) Urine Ketones (Negative) Urine Blood (Negative) Ur Leukocyte Esterase (Negative) Urine RBC (0-5) /hpf Urine WBC (0-5) /hpf Hyaline Casts (0-2) /lpf Urine Mucus (None) /hpf 05/10/19 05/10/19 05/10/19 Range/Units 05:27 05:27 09:00 WBC (3.8-10.6) k/uL RBC (3.80-5.40) m/uL Hgb (11.4-16.0) gm/dL Hct (34.0-46.0) % Lymphocytes # (Manual) (1.0-4.8) k/uL Eosinophils # (Manual) (0-0.7) k/uL ESR 48 H (0-20) mm/hr PT 12.1 H (9.0-12.0) sec INR 1.2 H (<1.2) APTT 33.2 H (22.0-30.0) sec D-Dimer (<0.60) mg/L FEU Sodium (137-145) mmol/L Carbon Dioxide (22-30) mmol/L BUN (7-17) mg/dL Creatinine (0.52-1.04) mg/dL Glucose (74-99) mg/dL Magnesium (1.6-2.3) mg/dL AST (14-36) U/L ALT (4-34) U/L Creatine Kinase (30-135) U/L CK-MB (CK-2) (0.0-2.4) ng/mL Troponin I (0.000-0.034) ng/mL C-Reactive Protein (<10.0) mg/L Urine Appearance (Clear) Urine Protein (Negative) Urine Ketones (Negative) Urine Blood (Negative) Ur Leukocyte Esterase (Negative) Urine RBC (0-5) /hpf Urine WBC (0-5) /hpf Hyaline Casts (0-2) /lpf Urine Mucus (None) /hpf Microbiology - Last 24 Hours (Table) 05/09/19 18:05 Urine Culture - Preliminary Urine,Voided Assessment and Plan Assessment: Elevated troponins possible myocarditis, viral versus vasculitis? Rash of the palms and soles Leukocytosis Anemia Acute kidney injury Transaminitis Patient's troponins are elevated at 1.88, 1.85, 1.76 with EKG showing normal sinus rhythm and T-wave inversions, prolonged QT. Patient was started on heparin drip from the ED. Cardiology was consulted and recommended adding aspirin and metoprolol by mouth. Echocardiogram is ordered. She was given 1 dose of Lasix which improved her breathing. Continue telemetry monitoring. Follow cardiology recommendations. Patient's rash along with probable myocarditis could be related to a viral infection. Differentials include coxsackie, Lyme, Rickettsia and vasculitis. MELECIO has been ordered. ANCA has been ordered. Complement levels have been ordered. We will consult rheumatology for further recommendations. Patient has leukocytosis of 21.6-18.8 with lymphocytic and eosinophilic predominance. This would go along with viral infection causing rash and myocarditis. CRP is elevated. ESR has been ordered. Repeat CBC tomorrow morning. Patient has hemoglobin of 10.4-9.5. This is normocytic. The etiology is unknown. Repeat CBC tomorrow morning. Transfuse if hemoglobin less than 7. BUN 34, creatinine 1.69. Possibly related to dehydration, prerenal. Plans to encourage hydration by mouth. Repeat CMP tomorrow morning. Avoid nephrotoxins. AST 61, ALT 57. Patient denies any alcohol consumption. Unknown etiology. Repeat CMP tomorrow morning. [Patient admitted for troponin elevation, shortness of breath and rash of the palms and soles. She has lymphocytic and eosinophilic predominance. Continued on heparin drip, cardiology following. MELECIO, ANCA, Lyme, Rickettsia ordered along with rheumatology consult. Patient is pending clinical improvement. Likely DC in 2-3 days.]
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
[2019-05-10] MEDS: HEPARIN SOD,PORK IN 0.45% NACL 25,000 UNIT in 0.45% NACL 1 250ML.BAG IV SCH (18:04)
[2019-05-10] MEDS ORDERED: CALCIUM CARBONATE 500 MG CHEWABLE PO PRN (20:33)
[2019-05-11 06:50] LABS: Basophils # (A) 0.1 k/uL (0-0.2); Basophils % (A) 0 %; Eosinophils # (A) 0.4 k/uL (0-0.7); Eosinophils % (A) 1 %; HCT 29.1 % (34.0-46.0); HGB 9.5 gm/dL (11.4-16.0); INR 1.2 (<1.2); Lymphocytes % (A) 65 %; MCH 32.7 pg (25.0-35.0); MCHC 32.8 g/dL (31.0-37.0); MCV 99.7 fL (80.0-100.0); Mean Platelet Volume 8.2; Monocytes # (A) 0.5 k/uL (0-1.0); Monocytes % (A) 2 %; Neutrophils # (A) 8.6 k/uL (1.3-7.7); Neutrophils % (A) 29 %; Partial Thromboplastin Time 46.8 sec (22.0-30.0); Platelet Count 295 k/uL (150-450); Prothrombin Time 12.1 sec (9.0-12.0); RBC 2.92 m/uL (3.80-5.40); RDW 13.7 % (11.5-15.5); WBC 29.4 k/uL (3.8-10.6)
[2019-05-11 06:51] LABS: Calcium 8.2 mg/dL (8.4-10.2); Potassium 4.5 mmol/L (3.5-5.1)
[2019-05-11 06:52] LABS: Lymphocytes # (A) 19.1 k/uL (1.0-4.8)
[2019-05-11 07:48] LABS: Anisocytosis (M) Present; Poikilocytosis (M) Present; Polychromasia Present
[2019-05-11] MEDS: METOPROLOL TARTRATE 25 MG TAB PO SCH ×2 (07:57→19:58)
[2019-05-11] MEDS: predniSONE 20 MG TAB PO SCH ×2 (07:57→19:58)
[2019-05-11] MEDS ORDERED: ASPIRIN 81 MG PO SCH (09:00)
[2019-05-11 11:57] VITALS: BMI 23.5
--- NOTE | 2019-05-11 12:00 | ECHOF ---
Referral Reason: MEASUREMENTS -------- HEIGHT: 162.6 cm WEIGHT: 62.1 kg BP: 113/72 RVIDd: 3.4 cm (< 3.3) IVSd: 1.1 cm (0.6 - 1.1) LVIDd: 4.0 cm (3.9 - 5.3) LVPWd: 1.3 cm (0.6 - 1.1) IVSs: 1.2 cm LVIDs: 3.9 cm LVPWs: 1.5 cm LA Diam: 4.3 cm (2.7 - 3.8) LAESV Index (A-L): 44.68 ml/m Ao Diam: 2.6 cm (2.0 - 3.7) AV Cusp: 1.6 cm (1.5 - 2.6) MV EXCURSION: 18.829 mm (> 18.000) MV EF SLOPE: 153 mm/s (70 - 150) EPSS: 0.8 cm MV E El: 0.98 m/s MV DecT: 130 ms MV A El: 0.54 m/s MV E/A Ratio: 1.80 RAP: 20.00 mmHg RVSP: 37.41 mmHg TAPSE: 8.33 mm FINDINGS -------- Sinus rhythm. This was a technically good study. The left ventricular size is normal. There is mild concentric left ventricular hypertrophy. Overa ll left ventricular systolic function is mild-moderately impaired with, an EF between 40 - 45 %. Th ere is evidence of paradoxical septal motion. The right ventricle is mildly enlarged. LA is severely dilated >40 ml/m2 The right atrium is normal in size. Interatrial and interventricular septum intact. There is mild aortic valve sclerosis. The mitral valve leaflets are mildly thickened. Severe mitral regurgitation is present. Severe tricuspid regurgitation present. There is mild pulmonary hypertension. The right ventricul ar systolic pressure, as measured by Doppler, is 37.41mmHg. Trace/mild (physiologic) pulmonic regurgitation. The aortic root size is normal. Normal inferior vena cava with less than 50% inspiratory collapse consistent with estimated right atr ial pressure of 20 mmHg. There is no pericardial effusion. CONCLUSIONS -------- 1. Sinus rhythm. 2. This was a technically good study. 3. The left ventricular size is normal. 4. There is mild concentric left ventricular hypertrophy. 5. Overall left ventricular systolic function is mild-moderately impaired with, an EF between 40 - 45 %. 6. There is evidence of paradoxical septal motion. 7. The right ventricle is mildly enlarged. 8. LA is severely dilated >40 ml/m2 9. The right atrium is normal in size. 10. Interatrial and interventricular septum intact. 11. There is mild aortic valve sclerosis. 12. The mitral valve leaflets are mildly thickened. 13. Severe mitral regurgitation is present. 14. Severe tricuspid regurgitation present. 15. There is mild pulmonary hypertension. 16. The right ventricular systolic pressure, as measured by Doppler, is 37.41mmHg. 17. Trace/mild (physiologic) pulmonic regurgitation. 18. The aortic root size is normal. 19. Normal inferior vena cava with less than 50% inspiratory collapse consistent with estimated right atrial pressure of 20 mmHg. 20. There is no pericardial effusion. WEASAND TRIMMER: Jessica Smith RDCS
--- NOTE | 2019-05-11 12:17 | P.PN ---
Subjective Progress Note Date: 05/11/19 This is a pleasant 68-year-old female patient who follows with Dr. Fierro in the office. She has a history of hypothyroidism, large pericardial effusion in 2018 requiring pericardial window at which time troponins were elevated. According to the patient she underwent stress testing last summer w hich came in to be normal. Patient comes in this admission mostly with complaints of progressively worsening shortness of breath over the last few days prior to her admission here. She did have a history of flulike symptoms a few weeks ago as well as discomfort in her arms which she described as a hot, tingling pain that was relieved with heat. She began developing a rash on her hands and feet as well as her torso. She then noticed himself to be short of breath for approximately 3 day duration and presented to the hospital for further evaluation and treatment. Her EKG on admission showed sinus rhythm with ST-T wave abnormalities compared to her prior EKG. Her lab tests this morning, white blood cell count 29.4, hemoglobin 9.5, platelet count 295. Sodium 131, potassium 4.5, BUN 53 creatinine 1.9 today up from yesterday 34 and 1.6 yesterday. Echocardiogram with Doppler study was performed which revealed an ejection fraction of 40-45%, severe mitral regurgitation, severe tricuspid regurgitation. No pericardial effusion. Dr. Fernando did have a lengthy discussion with Dr. Dickerson and the patient, with the feeling that the patients findings may be suggestive of vasculitis, a considerable vasculitis especially due to the fact that the patient had some hematuria, acute kidney injury, history of pericarditis and pericardial effusion. Therefore a further thorough workup is recommended by pulmonary and by Dr. Fernando. The recommendation was that the patient be transferred to either [facility] or [facility] where they are more experienced in vasculitis. Objective - Vital Signs Vital signs: Vital Signs Temp 98.2 F 05/11/19 11:55 Pulse 77 05/11/19 11:55 Resp 18 05/11/19 11:55 BP 101/67 05/11/19 11:55 Pulse Ox 98 05/11/19 11:55 Intake & Output 05/10/19 05/11/19 05/11/19 18:59 06:59 18:59 Intake Total 502.711 460 Output Total 200 Balance 502.711 260 Weight 62.2 kg 62.2 kg Intake: IV 160 Sodium Chloride 0.9% 1, 160 000 ml @ 20 mls/hr IV . Q24H STA Rx#:[id number] Intake, IV Titration 142.711 160 Amount Heparin Sod,Pork in 0.45% 142.711 NaCl 25,000 unit In 0.45 % NaCl 1 250ml.bag @ 12 UNITS/KG/HR 7.637 mls/hr IV .Q24H LUCIA Rx#: [id number] Sodium Chloride 0.9% 1, 160 000 ml @ 20 mls/hr IV . Q24H STA Rx#:[id number] Oral 200 300 Output: Urine 200 Other: Voiding Method Toilet Toilet Toilet # Voids 0 1 - Exam PHYSICAL EXAMINATION: HEENT: Head is atraumatic, normocephalic. Pupils equal, round. Neck is supple. There is no elevated jugular venous pressure. HEART EXAMINATION: Heart sounds regular, S1 and S2 normal. No murmur or gallop heard. CHEST EXAMINATION: Lungs reveal fine expiratory wheezes to bilateral lower lobes, diminished bilateral bases. No chest wall tenderness is noted on palpation or with deep breathing. ABDOMEN: Soft, nontender. Bowel sounds are heard. No organomegaly noted. EXTREMITIES: 2+ peripheral pulses with evidence of trace peripheral edema and no calf tenderness noted. Rash noted to bilateral hands and feet. NEUROLOGIC patient is awake, alert and oriented x3. . - Labs CBC & Chem 7: 05/11/19 05:52 05/11/19 05:52 Labs: Abnormal Lab Results - Last 24 Hours (Table) 05/10/19 05/10/19 05/11/19 Range/Units 05:27 15:17 05:52 WBC (3.8-10.6) k/uL RBC (3.80-5.40) m/uL Hgb (11.4-16.0) gm/dL Hct (34.0-46.0) % Neutrophils # (1.3-7.7) k/uL Lymphocytes # (1.0-4.8) k/uL ESR 48 H (0-20) mm/hr PT 12.1 H (9.0-12.0) sec INR 1.2 H (<1.2) APTT 64.0 H 46.8 H (22.0-30.0) sec Sodium (137-145) mmol/L Carbon Dioxide (22-30) mmol/L BUN (7-17) mg/dL Creatinine (0.52-1.04) mg/dL Glucose (74-99) mg/dL Calcium (8.4-10.2) mg/dL 05/11/19 05/11/19 Range/Units 05:52 05:52 WBC 29.4 H (3.8-10.6) k/uL RBC 2.92 L (3.80-5.40) m/uL Hgb 9.5 L (11.4-16.0) gm/dL Hct 29.1 L (34.0-46.0) % Neutrophils # 8.6 H (1.3-7.7) k/uL Lymphocytes # 19.1 H (1.0-4.8) k/uL ESR (0-20) mm/hr PT (9.0-12.0) sec INR (<1.2) APTT (22.0-30.0) sec Sodium 131 L (137-145) mmol/L Carbon Dioxide 21 L (22-30) mmol/L BUN 53 H (7-17) mg/dL Creatinine 1.96 H (0.52-1.04) mg/dL Glucose 159 H (74-99) mg/dL Calcium 8.2 L (8.4-10.2) mg/dL Microbiology - Last 24 Hours (Table) 05/09/19 18:05 Urine Culture - Final Urine,Voided Assessment and Plan Plan: Assessment and plan #1 diffuse petechial rash with areas of ecchymosis. Findings are suggestive of vasculitis . A considerable vasculitis especially the patient has had some hematuria, acute kidney injury previous history of pericarditis and pericardial effusions. Further workup is needed in that regard. #2 acute kidney injury #3 hematuria, microscopic #4 diffuse arthralgias #5 leukocytosis #6 history of pericardial effusion post window #7 bronchial asthma Plan Echo cardiogram with Doppler study was reviewed which revealed an ejection fraction of 40-45%, there is evidence of paradoxical septal motion, LA is severe ly dilated, severe mitral regurgitation. No evidence of pericardial effusion. Cardiology's recommendation is that the patient the transfer to the [facility] or before for further workup regarding possible vasculitis. As discussed in detail by Dr. Fernando with the patient. DNP note has been reviewed, I agree with a documented findings and plan of care. Patient was seen and examined.
--- NOTE | 2019-05-11 12:35 | P.PN ---
Subjective Progress Note Date: 05/11/19 This is a pleasant 68-year-old female patient is known to me. She has history of mild intermittent bronchial asthma and is taking care of her lungs for many years. The patient was in the hospital few years back where she developed an acute pericarditis/pericardial effusion and the patient required pericardial window and back then had MELECIO was negative and the fluid that was analyzed from the pericardial effusion showed no evidence of any malignancy. She is coming into the emergency department because of shortness of breath, diffuse body aches and she has developed some petechial rash in his fingers and her feet and has shrunk in addition to some areas of large ecchymotic areas in her feet bilat erally. These prakash of an iron of developing for the past several weeks. During that time she developed generalized body aches and some shortness of breath and chest discomfort. She also reports some tingling and burning sensation in her hands and feet. Around 3 days ago, she developed worsening shortness of breath and she thought that this was similar to the pericardial effusion episodes that she had earlier and for that reason she presented herself to the emergency department. She denied having any fever or chills. No pleurisy. The patient was seen in ED. D-dimer was elevated and the patient was given a VQ scan that came back positive for several numerous matching defects which was of a low to intermediate probability for pulmonary embolism. Chest x- ray shows hepatomegaly and some mild pulmonary vascular congestion. Doppler of the lower extremity was negative for DVT. White cell count was at 21.6. Hemoglobin was at 10.4. [place] [address]. LFTs were within normal limits. The UA showed blood, around 40 RBCs and 14 WBCs and influenza screen was negative. The CPK was 213. C-reactive protein was 53. Serum albumin was 3.7 with a protein of 7.1. TSH was 2.7. Troponins peaked at 1.85 and is currently down to 1.7. She is currently on IV heparin. She has been of an acute kidney injury in the creatinine is up to 1.69 on today's evaluation. Her other comorbidities include hypothyroidism, kidney stones and borderline osteoporosis in addition to bronchial asthma. On today's evaluation of 05/11/2019 the patient tells that she gets out of breath easily. He is on oxygen at 2 L per minute nasal cannula. No angina. Her creatinine is got worse since up to 1.9.Her BUN is a 53. The rest of the electrodes are all within normal limits. Her white cell count is up to 29.4. She is on IV heparin. She is also on prednisone that was started by the primary care team. No other new complaints for now. No altered mentation. ET tube lesions on her skin are still present. Nephrology consultations been orders. Serum markers for various causes of vasculitis of also ordered and the results are still pending for now. The echo was also completed and the patient has mild impairment of the LV function with an EF of around 40-45%. RV is mildly enlarged. There is severe MR, severe TR, PA pressures are 37 mmHg and there is normal inspiratory collapse of the IVC indicating no signs of a fluid overload Objective - Vital Signs Vital signs: Vital Signs Temp 98.2 F 05/11/19 11:55 Pulse 77 05/11/19 11:55 Resp 18 05/11/19 11:55 BP 101/67 05/11/19 11:55 Pulse Ox 98 05/11/19 11:55 Intake & Output 05/10/19 05/11/19 05/11/19 18:59 06:59 18:59 Intake Total 502.711 460 Output Total 200 Balance 502.711 260 Weight 62.2 kg 62.2 kg Intake: IV 160 Sodium Chloride 0.9% 1, 160 000 ml @ 20 mls/hr IV . Q24H STA Rx#:[id number] Intake, IV Titration 142.711 160 Amount Heparin Sod,Pork in 0.45% 142.711 NaCl 25,000 unit In 0.45 % NaCl 1 250ml.bag @ 12 UNITS/KG/HR 7.637 mls/hr IV .Q24H LUCIA Rx#: [id number] Sodium Chloride 0.9% 1, 160 000 ml @ 20 mls/hr IV . Q24H STA Rx#:[id number] Oral 200 300 Output: Urine 200 Other: Voiding Method Toilet Toilet Toilet # Voids 0 1 - Exam GENERAL EXAM: Alert, pleasant, 67-year-old white female, on room air, comfortable in no apparent distress. HEAD: Normocephalic/atraumatic. EYES: Normal reaction of pupils, equal size. Conjunctiva pink, sclera white. NOSE: Clear with pink turbinates. THROAT: No erythema or exudates. NECK: No masses, positive JVD, no thyroid enlargement, no adenopathy. CHEST: No chest wall deformity. Symmetrical expansion. LUNGS: Equal air entry with scattered wheezes, rhonchi or dullness. CVS: Regular rate and rhythm, normal S1 and S2, no gallops, faint systolic ejection murmur grade 2-3/6 murmurs, no rubs ABDOMEN: Soft, nontender. No hepatosplenomegaly, normal bowel sounds, no guarding or rigidity. EXTREMITIES: No clubbing, no edema, no cyanosis, 2+ pulses and upper and lower extremities. MUSCULOSKELETAL: Muscle strength and tone normal. SPINE: No scoliosis or deformity SKIN: He care rashes in the hands and fingers and sole of the feet in addition to areas of large ecchymotic skin changes in the feet bilaterally. Similar lesions are also present in the abdomen and the posterior back and the trunk. CENTRAL NERVOUS SYSTEM: Alert and oriented -3. No focal deficits, tone is normal in all 4 extremities. PSYCHIATRIC: Alert and oriented -3. Appropriate affect. Intact judgment and insight. - Labs CBC & Chem 7: 05/11/19 05:52 05/11/19 05:52 Labs: Abnormal Lab Results - Last 24 Hours (Table) 05/10/19 05/11/19 05/11/19 Range/Units 15:17 05:52 05:52 WBC (3.8-10.6) k/uL RBC (3.80-5.40) m/uL Hgb (11.4-16.0) gm/dL Hct (34.0-46.0) % Neutrophils # (1.3-7.7) k/uL Lymphocytes # (1.0-4.8) k/uL PT 12.1 H (9.0-12.0) sec INR 1.2 H (<1.2) APTT 64.0 H 46.8 H (22.0-30.0) sec Sodium 131 L (137-145) mmol/L Carbon Dioxide 21 L (22-30) mmol/L BUN 53 H (7-17) mg/dL Creatinine 1.96 H (0.52-1.04) mg/dL Glucose 159 H (74-99) mg/dL Calcium 8.2 L (8.4-10.2) mg/dL 05/11/19 Range/Units 05:52 WBC 29.4 H (3.8-10.6) k/uL RBC 2.92 L (3.80-5.40) m/uL Hgb 9.5 L (11.4-16.0) gm/dL Hct 29.1 L (34.0-46.0) % Neutrophils # 8.6 H (1.3-7.7) k/uL Lymphocytes # 19.1 H (1.0-4.8) k/uL PT (9.0-12.0) sec INR (<1.2) APTT (22.0-30.0) sec Sodium (137-145) mmol/L Carbon Dioxide (22-30) mmol/L BUN (7-17) mg/dL Creatinine (0.52-1.04) mg/dL Glucose (74-99) mg/dL Calcium (8.4-10.2) mg/dL Microbiology - Last 24 Hours (Table) 05/09/19 18:05 Urine Culture - Final Urine,Voided Assessment and Plan Plan: 1 diffuse petechial rash with areas of ecchymosis. Findings are suggestive of vasculitis . A considerable vasculitis especially the patient has had some hematuria, acute kidney injury previous history of pericarditis and pericardial effusions. Further workup is needed in that regard. Rule out polyangiitis. Rule out lupus. The workup for vasculitis still in progress. Serum markers were sent. 2 acute kidney injury, there is worsening in the renal function and creatinine is up to 1.9. Awaiting nephrology evaluation, consider a kidney biopsy 3 hematuria, microscopic 4 diffuse arthralgias 5 leukocytosis, interval worsening in the white cell count is up to 29 6 history of pericardial effusion post window 7 bronchial asthma 8 CHF with mild impairment of LV function EF of around 45% along with severe MR and mild secondary pulmonary hypertension Plan Rheumatology workup is still in progress Awaiting nephrology evaluation with possible kidney biopsy Ordered a high-resolution computed tomography scan of the chest, no contrast rule out any underlying ILD Echo was noted We'll continue to follow
--- NOTE | 2019-05-11 14:24 | CT ---
EXAMINATION TYPE: CT chest wo con DATE OF EXAM: 05/11/2019 COMPARISON: 06/14/2017 HISTORY: 68-year-old female Shortness of breath. TECHNIQUE: Contiguous axial scanning of the chest without IV contrast. Coronal and sagittal reconstru ctions performed. CT DLP: 202.5 mGycm Automated exposure control for dose reduction was used. FINDINGS: Bilateral breast implants are demonstrated. Heart mild to moderately enlarged. Trace anterior basilar pericardial fluid. Mild atherosclerotic arch calcifications with conventional vessel branching anatomy. Scattered mediastinal lymph nodes measuring up to 1.0 cm in the paratracheal region and 1.4 cm in the subcarinal region, nonspecific, possibly reactive. Small right and trace left pleural effusions with prominent bands of atelectasis throughout the lungs . Biapical pleural parenchymal scarring. Tiny peripheral 2 mm and smaller nodularity seems to have been present previously. Some mild septal l lourdes may present in the lower lungs. No shanae consolidation. Visualized upper abdomen shows no gross abnormal. Bones: No osseous destructive process. IMPRESSION: 1. Mild to moderate cardiomegaly. 2. Small right and trace left pleural effusions. There may be some septal lines in the lower lungs. C orrelate for possible mild CHF. No pulmonary edema. 3. Prominent bands of atelectasis throughout the lungs. 4. A couple borderline-sized mediastinal lymph nodes measuring up to 1.4 and 1.0 cm probably reactive . Consideration can be given to six-month follow-up CT to reassess.
--- NOTE | 2019-05-11 15:07 | P.PN ---
Subjective Progress Note Date: 05/11/19 Patient seen and examined at bedside, apparently has had rash on the soles of her feet that were pruritic with some erythema that began 4 weeks ago, she also complained of numbness and tingling in her upper arms and legs, and also complained of a rash on her abdomen and flank area. her white count is up to 29.4 from 18.8 serum sodium was 131, Creatinine up to 1.96 from 1.69, The patient continues on heparin troponin level yesterday was 1.76. No acute events overnight, the patient does report improvement of her rash and itchiness. Objective - Vital Signs Vital signs: Vital Signs Temp 98.2 F 05/11/19 11:55 Pulse 77 05/11/19 11:55 Resp 18 05/11/19 11:55 BP 101/67 05/11/19 11:55 Pulse Ox 98 05/11/19 11:55 Intake & Output 05/10/19 05/11/19 05/11/19 18:59 06:59 18:59 Intake Total 502.711 460 Output Total 200 Balance 502.711 260 Weight 62.2 kg 62.2 kg Intake: IV 160 Sodium Chloride 0.9% 1, 160 000 ml @ 20 mls/hr IV . Q24H STA Rx#:[id number] Intake, IV Titration 142.711 160 Amount Heparin Sod,Pork in 0.45% 142.711 NaCl 25,000 unit In 0.45 % NaCl 1 250ml.bag @ 12 UNITS/KG/HR 7.637 mls/hr IV .Q24H LUCIA Rx#: [id number] Sodium Chloride 0.9% 1, 160 000 ml @ 20 mls/hr IV . Q24H STA Rx#:[id number] Oral 200 300 Output: Urine 200 Other: Voiding Method Toilet Toilet Toilet # Voids 0 1 - Exam Constitutional: No acute distress, conversant, pleasant Eyes: Anicteric sclerae, moist conjunctiva, no lid-lag, PERRLA ENMT: NC/AT,Oropharynx clear, no erythema, exudates Neck:Supple, FROM, no masses, or JVD, No carotid bruits; No thyromegaly Lungs: Clear to auscultation, Clear to percussion, Normal respiratory effort, no accessory muscle use Cardiovascular: Heart regular in rate and rhythm, 2/6 systolic ejection murmur Abdominal: Soft Nontender, nom distended, no guarding, no rebound or rigidity, Normoactive bowel sounds No hepatomegaly, No splenomegaly, No palpable mass No abdominal wall hernia noted Skin: He care rashes in the hands and fingers and sole of the feet in addition to areas of large ecchymotic skin changes in the feet bilaterally. Similar lesions are also present in the abdomen and the posterior back and the trunk. Extremities:No digital cyanosis No clubbing, Pedal pulses intact and symmetrical Radial pulses intact and symmetrical Normal gait and station, No calf tenderness Psychiatric: Alert and oriented to person, place and time, Appropriate affect Intact judgement Neuro: Muscles Strength 5/5 in all 4 extremities, Sensation to light touch grossly present throughout, Cranial nerves II-XII grossly intact. No focal sensory deficits - Labs CBC & Chem 7: 05/11/19 05:52 05/11/19 05:52 Labs: Abnormal Lab Results - Last 24 Hours (Table) 05/10/19 05/11/19 05/11/19 Range/Units 15:17 05:52 05:52 WBC (3.8-10.6) k/uL RBC (3.80-5.40) m/uL Hgb (11.4-16.0) gm/dL Hct (34.0-46.0) % Neutrophils # (1.3-7.7) k/uL Lymphocytes # (1.0-4.8) k/uL PT 12.1 H (9.0-12.0) sec INR 1.2 H (<1.2) APTT 64.0 H 46.8 H (22.0-30.0) sec Sodium 131 L (137-145) mmol/L Carbon Dioxide 21 L (22-30) mmol/L BUN 53 H (7-17) mg/dL Creatinine 1.96 H (0.52-1.04) mg/dL Glucose 159 H (74-99) mg/dL Calcium 8.2 L (8.4-10.2) mg/dL 05/11/19 Range/Units 05:52 WBC 29.4 H (3.8-10.6) k/uL RBC 2.92 L (3.80-5.40) m/uL Hgb 9.5 L (11.4-16.0) gm/dL Hct 29.1 L (34.0-46.0) % Neutrophils # 8.6 H (1.3-7.7) k/uL Lymphocytes # 19.1 H (1.0-4.8) k/uL PT (9.0-12.0) sec INR (<1.2) APTT (22.0-30.0) sec Sodium (137-145) mmol/L Carbon Dioxide (22-30) mmol/L BUN (7-17) mg/dL Creatinine (0.52-1.04) mg/dL Glucose (74-99) mg/dL Calcium (8.4-10.2) mg/dL Microbiology - Last 24 Hours (Table) 05/09/19 18:05 Urine Culture - Final Urine,Voided Assessment and Plan Assessment: Diffuse petechial rash and arthralgias * Concern for underlying vasculitis possibly leuko-clastic presenting with elevated white count * Serological workup pending MELECIO, complement C3/4, Lyme's disease all negative, ESR elevated, * rheumatological consultation ordered Acute kidney injury * With microscopic hematuria with kidney function worsening up to 1.9 * Consult nephrology patient will likely need kidney biopsy Systolic CHF * EF around 45% with severe MR and mild pulmonary hypertension * NT proBNP is 31 300 with chest x-ray showing hepatomegaly and some pulmonary vascular congestion Elevated D dimer * Patient currently on heparin, VQ scan yielding low to intermediate probability of PE with several numerous matching defects on VQ scan Elevated troponin * Possibly secondary to the viral myocarditis disposition * Continue to monitor closely
--- NOTE | 2019-05-11 15:10 | CDI ---
Documentation Clarification Form Date: 05/11/2019 02:53:55 PM From: Latricia Ocampo RN CCDS Admit Date: 05/09/2019 06:29:00 PM Patient Name: Debbie Thomas Visit Number: [id number] Discharge Date: ATTENTION: The Clinical Documentation Specialists (CDI) and [facility] Coding Staff appreciate your assistance in clarifying documentation. Please respond to the clarification below the line at the bottom and electronically sign. The CDI & [facility] Coding staff will review the response and follow-up if needed. Please note: Queries are made part of the Legal Health Record. If you have any questions, please contact the author of this message via ITS. Dr. Cale Fernando Acute Congestive Heart Failure is documented in the Cardiology consult 05/09 History/Risk Factors: 68-year-old female presents to the ED with shortness of breath and a diffuse rash covering her abdomen, flanks, arms and feet. The patient felt generalized achiness and tingling and burning sensation in her hands and feet. Medical History Asthma, thyroid disorder and myopericarditis. Clinical Indicators: VS/Pulse OX: 05/08 115/70 80 97.8 20 96% ra 05/08 BNP: 38148 Echocardiogram Results: Chest X Ray: 05/08 Mild chronic congestive heart failure that is new compared to last exam. Small pleural effusion Discontinue Lasix for now due to history of pericardial effusion and tamponade H&P 05/08 Treatment: 05/08 Lasix 40mg IV Q 12 dc 05/08, 05/09 Lasix 40mg Iv x1, 05/09 Lopressor 25mg po Bid Isak In your professional opinion, can you please clarify the acuity and type of CHF if known? * Acute Systolic Heart Failure: * Acute Systolic & Diastolic Heart Failure: * Unable to Determine * Other, please specify diastolic_ (Last Revision: June 2017) MTDD
--- NOTE | 2019-05-11 16:46 | CONS ---
CONSULTATION REASON FOR CONSULT: Renal failure. HISTORY OF PRESENT ILLNESS: The patient is a 68-year-old female who was admitted to the hospital with vague rash which initially appeared to be petechial with small tiny dots, mainly on her hands and then patient noticed it on her legs and abdomen as well. She also had tingling sensation in the palms. The patient denied any specific joint pain or pains in the small joints of the hands. She denied any prior history of kidney diseases. Patient is noted to have a serum creatinine of 1.69 mg/dL yesterday and it is at 1.9 today. Previous creatinine was 1.01 on 10/28/2018. Current UA shows 1+ protein, moderate blood. The patient does have a history of pericardial effusion about 2 years ago for which she had a pericardial window. She has been seen by Cardiology since then. She has been followed up by Cardiology. There was no mention of any autoimmune diseases at that time. There was concern for underlying vasculitis. Patient was also noted to have an elevated troponin at 1.8 mg/dL when she came in. She is maintained on prednisone at 40 mg b.i.d. Patient has been complaining of increased shortness of breath for the last few days prior to admission. Chest CT done this afternoon shows [id number] cardiomegaly with trace pleural effusions. No significant pericardial effusion was noted. The patient did admit to use of nonsteroidal anti-inflammatory agents for about 2-3 weeks prior to admission. PAST MEDICAL HISTORY: History of asthma, history of pericardial effusion, pneumonia, hypothyroidism. PAST SURGICAL HISTORY: Left cholecystectomy, pericardial window 2018. SOCIAL HISTORY: Patient is a former smoker. No history of drug abuse or alcohol abuse. MEDICATIONS: Medications prior to admission included Ventolin, Synthroid, Lopressor, Zyrtec, calcium, vitamin C, vitamin B12, Advair and Advil. ALLERGIES: Include CECLOR, CIPRO, BIAXIN, SULFA. PHYSICAL EXAMINATION: On examination, patient is comfortable, awake. She is not in any acute distress. Alert and oriented x3. Blood pressure was 101/67, heart rate 77 per minute, she is afebrile. Examination of the heart S1, S2. Examination of the lungs, bilateral breath sounds are heard. Abdomen is soft, nontender. Examination of lower extremities shows no significant edema. Petechial rash which seems to be fading is noted in the hands. There is a rash noted on her heels and the soles of the feet as well. P[employer] exam grossly intact. LABS: Show sodium of 131, potassium 4.5, chloride 99, CO2 is 21, BUN 53, creatinine 1.96, hemoglobin 9.5 g/dL. MELECIO is negative. C3, C4 not low. White cell count 29.4. UA shows 1+ protein, moderate blood, WBCs 14. ASSESSMENT: 1. Acute kidney injury. Need to rule out underlying acute glomerulonephritis, however, the patient was also taking NSAIDs, which can also result in acute kidney injury with hematuria and proteinuria. Nevertheless, patient will need a kidney biopsy. Unfortunately, she had been on aspirin, therefore it will not be done for another 4-5 days. In the meantime, patient is maintained on steroids. Her MELECIO and complements are normal. I have ordered an ANCA, anti glomerular basement membrane antibodies, as well as hepatitis serologies. In the meantime, I will continue with the steroids. Patient is also getting a skin biopsy done. We will also consult Rheumatology. 2. History of pericardial effusion with previous pericardial window about 2 years ago. PLAN: Check all serologies. Consult Rheumatology. Avoid all NSAIDs. Kidney biopsy in the next 4-5 days as patient was just taken off aspirin. Thank you for this consultation. We will continue to follow the patient with you during her hospitalization. MMODL / IJN: [id number] /
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
[2019-05-11] MEDS: HEPARIN SOD,PORK IN 0.45% NACL 25,000 UNIT in 0.45% NACL 1 250ML.BAG IV SCH (19:59)
[2019-05-11 20:33] LABS: Anti-DNA, DS unit <1.0 IU/mL; DNA Double-Stranded NEGATIVE (NEGATIVE)
[2019-05-11 20:43] LABS: Hepatitis B Surface AB- Quant 3.5 mIU/mL; Hepatitis B Surface Antibody Non-Reactive (Non-Reactive); Hepatitis B Surface Antigen Non-Reactive (Non-Reactive); Hepatitis C IgG Antibody Non-Reactive (Non-Reactive)
[2019-05-11] MEDS ORDERED: METOCLOPRAMIDE 10 MG TAB PO STA (21:56)
[2019-05-12 07:07] LABS: Creatine Kinase 61 U/L (30-135)
[2019-05-12 07:13] LABS: INR 1.2 (<1.2); Partial Thromboplastin Time 43.8 sec (22.0-30.0); Prothrombin Time 12.4 sec (9.0-12.0)
[2019-05-12 07:29] LABS: Appearance,Urine Clear (Clear); Bilirubin,Urine Negative (Negative); Blood,Urine Trace (Negative); Color,Urine Yellow; Glucose,Urine (UA) Negative (Negative); Hyaline Casts,Urine 7 /lpf (0-2); Ketones,Urine Negative (Negative); Leukocyte Esterase,Urine Moderate (Negative); Mucus,Urine Rare /hpf; Nitrite,Urine Negative (Negative); PH, Urine 5.5 (5.0-8.0); Protein,Urine Trace (Negative); RBC,Urine 1 /hpf (0-5); Specific Gravity,Urine 1.021 (1.001-1.035); Urobilinogen,Urine <2.0 mg/dL (<2.0); WBC,Urine 6 /hpf (0-5)
[2019-05-12] MEDS: METOPROLOL TARTRATE 25 MG TAB PO SCH ×2 (08:05→19:42)
[2019-05-12] MEDS: predniSONE 20 MG TAB PO SCH ×2 (08:05→19:42)
[2019-05-12 11:08] LABS: Ferritin 676.9 ng/mL (10.0-291.0)
[2019-05-12 11:14] LABS: % Iron Saturation 47.58 (12.00-45.00); Iron 108 ug/dL (50-170); Total Iron Binding Capacity 227 ug/dL (228-460)
[2019-05-12 11:26] LABS: Basophils # (A) 0.1 k/uL (0-0.2); Basophils % (A) 0 %; Eosinophils % (A) 2 %; HCT 29.2 % (34.0-46.0); HGB 9.5 gm/dL (11.4-16.0); Lymphocytes % (A) 73 %; MCH 32.6 pg (25.0-35.0); MCHC 32.6 g/dL (31.0-37.0); MCV 99.9 fL (80.0-100.0); Macrocytosis Slight; Mean Platelet Volume 8.1; Monocytes # (A) 0.6 k/uL (0-1.0); Monocytes % (A) 1 %; Neutrophils # (A) 8.3 k/uL (1.3-7.7); Neutrophils % (A) 20 %; Platelet Count 372 k/uL (150-450); RBC 2.92 m/uL (3.80-5.40); RDW 14.3 % (11.5-15.5); WBC 42.7 k/uL (3.8-10.6)
[2019-05-12 11:34] LABS: Lymphocytes # (A) 31.3 k/uL (1.0-4.8)
[2019-05-12 11:54] LABS: Rheumatoid Factor, Qnt <4 IU/mL (0-13)
[2019-05-12 11:55] LABS: Albumin 3.6 g/dL (3.5-5.0); Calcium 8.1 mg/dL (8.4-10.2); Potassium 4.5 mmol/L (3.5-5.1); Total Bilirubin 0.5 mg/dL (0.2-1.3); Total Protein 6.8 g/dL (6.3-8.2)
[2019-05-12 12:10] LABS: Polychromasia Present
--- NOTE | 2019-05-12 12:40 | P.PN ---
Subjective Progress Note Date: 05/12/19 This is a pleasant 68-year-old female patient who follows with Dr. Fierro in the office. She has a history of hypothyroidism, large pericardial effusion in 2018 requiring pericardial window at which time troponins were elevated. According to the patient she underwent stress testing last summer w hich came in to be normal. Patient comes in this admission mostly with complaints of progressively worsening shortness of breath over the last few days prior to her admission here. She did have a history of flulike symptoms a few weeks ago as well as discomfort in her arms which she described as a hot, tingling pain that was relieved with heat. She began developing a rash on her hands and feet as well as her torso. She then noticed himself to be short of breath for approximately 3 day duration and presented to the hospital for further evaluation and treatment. Her EKG on admission showed sinus rhythm with ST-T wave abnormalities compared to her prior EKG. Her lab tests this morning, white blood cell count 29.4, hemoglobin 9.5, platelet count 295. Sodium 131, potassium 4.5, BUN 53 creatinine 1.9 today up from yesterday 34 and 1.6 yesterday. Echocardiogram with Doppler study was performed which revealed an ejection fraction of 40-45%, severe mitral regurgitation, severe tricuspid regurgitation. No pericardial effusion. Dr. Fernando did have a lengthy discussion with Dr. Dickerson and the patient, with the feeling that the patients findings may be suggestive of vasculitis, a considerable vasculitis especially due to the fact that the patient had some hematuria, acute kidney injury, history of pericarditis and pericardial effusion. Therefore a further thorough workup is recommended by pulmonary and by Dr. Fernando. The recommendation was that the patient be transferred to either [facility] or [facility] where they are more experienced in vasculitis. 05/12/2019 Patient was seen and examined this morning, she does state that she is feeling mildly better today, continues to have the rash on the bottom of her feet, continues to feel short of breath. Echocardiogram with Doppler study was performed which revealed an ejection fraction of 40-45%, LA is severely dilated, severe mitral regurgitation, severe tricuspid regurgitation. Blood pressure 1 12/60 with a heart rate in the 80s, 96% on room air. White blood cell count 42.7, hemoglobin 9.5, platelet count 372. Sodium 133, potassium 4.5, BUN 66, creatinine 1.9, AST 195, ALT 240, alk phos 95, TIBC 227, iron saturation 47.5, total bilirubin 676. Objective - Vital Signs Vital signs: Vital Signs Temp 98.5 F 05/12/19 11:15 Pulse 74 05/12/19 11:15 Resp 16 05/12/19 11:15 BP 111/74 05/12/19 11:15 Pulse Ox 95 05/12/19 11:15 Intake & Output 05/11/19 05/12/19 05/12/19 18:59 06:59 18:59 Intake Total 615 580 Balance 615 580 Weight 62.2 kg 62.7 kg Intake: Intake, IV Titration 250 Amount Heparin Sod,Pork in 0.45% 250 NaCl 25,000 unit In 0.45 % NaCl 1 250ml.bag @ 12 UNITS/KG/HR 7.637 mls/hr IV .Q24H [facility] Rx#: [id number] Oral 365 580 Other: Voiding Method Toilet Toilet Toilet # Voids 0 # Bowel Movements 0 1 - Exam PHYSICAL EXAMINATION: HEENT: Head is atraumatic, normocephalic. Pupils equal, round. Neck is supple. There is no elevated jugular venous pressure. HEART EXAMINATION: Heart sounds regular, S1 and S2 normal. Systolic murmur heard. CHEST EXAMINATION: Lungs reveal fine expiratory wheezes to bilateral lower lobes, improved air entry to bilateral bases. No chest wall tenderness is noted on palpation or with deep breathing. ABDOMEN: Soft, nontender. Bowel sounds are heard. No organomegaly noted. EXTREMITIES: 2+ peripheral pulses with evidence of trace peripheral edema and no calf tenderness noted. Rash noted to bilateral bottoms of feet. NEUROLOGIC patient is awake, alert and oriented x3. . - Labs CBC & Chem 7: 05/12/19 10:46 05/12/19 10:46 Labs: Abnormal Lab Results - Last 24 Hours (Table) 05/12/19 05/12/19 05/12/19 Range/Units 06:26 06:26 06:50 WBC (3.8-10.6) k/uL RBC (3.80-5.40) m/uL Hgb (11.4-16.0) gm/dL Hct (34.0-46.0) % Neutrophils # (1.3-7.7) k/uL Lymphocytes # (1.0-4.8) k/uL Eosinophils # (0-0.7) k/uL PT 12.4 H (9.0-12.0) sec INR 1.2 H (<1.2) APTT 43.8 H (22.0-30.0) sec Sodium (137-145) mmol/L Carbon Dioxide (22-30) mmol/L BUN (7-17) mg/dL Creatinine (0.52-1.04) mg/dL Glucose (74-99) mg/dL Calcium (8.4-10.2) mg/dL TIBC 227 L (228-460) ug/dL % Saturation 47.58 H (12.00-45.00) Ferritin 676.9 H (10.0-291.0) ng/mL AST (14-36) U/L ALT (4-34) U/L Urine Protein Trace H (Negative) Urine Blood Trace H (Negative) Ur Leukocyte Esterase Moderate H (Negative) Urine WBC 6 H (0-5) /hpf Hyaline Casts 7 H (0-2) /lpf Urine Mucus Rare H (None) /hpf 05/12/19 05/12/19 Range/Units 10:46 10:46 WBC 42.7 H (3.8-10.6) k/uL RBC 2.92 L (3.80-5.40) m/uL Hgb 9.5 L (11.4-16.0) gm/dL Hct 29.2 L (34.0-46.0) % Neutrophils # 8.3 H (1.3-7.7) k/uL Lymphocytes # 31.3 H (1.0-4.8) k/uL Eosinophils # 1.0 H (0-0.7) k/uL PT (9.0-12.0) sec INR (<1.2) APTT (22.0-30.0) sec Sodium 133 L (137-145) mmol/L Carbon Dioxide 19 L (22-30) mmol/L BUN 66 H (7-17) mg/dL Creatinine 1.95 H (0.52-1.04) mg/dL Glucose 129 H (74-99) mg/dL Calcium 8.1 L (8.4-10.2) mg/dL TIBC (228-460) ug/dL % Saturation (12.00-45.00) Ferritin (10.0-291.0) ng/mL AST 195 H (14-36) U/L ALT 240 H (4-34) U/L Urine Protein (Negative) Urine Blood (Negative) Ur Leukocyte Esterase (Negative) Urine WBC (0-5) /hpf Hyaline Casts (0-2) /lpf Urine Mucus (None) /hpf Assessment and Plan Plan: Assessment and plan #1 diffuse petechial rash with areas of ecchymosis. Findings are suggestive of vasculitis . A considerable vasculitis especially the patient has had some hematuria, acute kidney injury previous history of pericarditis and pericardial effusions. Further workup is needed in that regard. #2 acute kidney injury #3 hematuria, microscopic #4 diffuse arthralgias #5 leukocytosis #6 history of pericardial effusion post window #7 bronchial asthma Plan Echocardiogram with Doppler study was reviewed which revealed an ejection fraction of 40-45%, there is evidence of paradoxical septal motion, LA is severely dilated, severe mitral regurgitation. No evidence of pericardial effusion. The mitral regurgitation appears to be new from echo performed in November last year as does the reduction in LV function. The patient's case will be discussed further with pulmonary service by Dr. Fernando, and then further recommendations will be made. DNP note has been reviewed, I agree with a documented findings and plan of care. Patient was seen and examined.
--- NOTE | 2019-05-12 13:11 | P.PN ---
<Linda Phan A - Last Filed: 05/12/19 13:08> Subjective Progress Note Date: 05/12/19 CHIEF COMPLAINT: skin rash HISTORY OF PRESENT ILLNESS: Patient examined at the bedside. She reports feeling well today. Rash on abdomen has resolved. Patient reports improvement in rash on bottom of her feet. PHYSICAL EXAM: VITAL SIGNS: Reviewed. GENERAL: Well-developed in no acute distress. HEENT: No sclera icterus. Extraocular movements grossly intact. Moist buccal mucosa. Head is atraumatic, normocephalic. ABDOMEN: Soft. Nondistended. Nontender. No evidence of rash. NEUROLOGIC: Alert and oriented. Cranial nerves II through XII grossly intact. SKIN: Scattered areas of erythematous rash ASSESSMENT: 1. Skin rash 2. Possible vasculitis PLAN: No immediate plans for skin biopsy at this time Kidney biopsy planned in 4-5 days per nephrology (patient was taking aspirin) Await rheumatology evaluation Nurse practitioner note has been reviewed by physician. Signing provider agrees with the documented findings, assessment, and plan of care. Objective - Vital Signs Vital signs: Vital Signs Temp 98.5 F 05/12/19 11:15 Pulse 74 05/12/19 11:15 Resp 16 05/12/19 11:15 BP 111/74 05/12/19 11:15 Pulse Ox 95 05/12/19 11:15 Intake & Output 05/11/19 05/12/19 05/12/19 18:59 06:59 18:59 Intake Total 615 580 Balance 615 580 Weight 62.2 kg 62.7 kg Intake: Intake, IV Titration 250 Amount Heparin Sod,Pork in 0.45% 250 NaCl 25,000 unit In 0.45 % NaCl 1 250ml.bag @ 12 UNITS/KG/HR 7.637 mls/hr IV .Q24H [facility] Rx#: [id number] Oral 365 580 Other: Voiding Method Toilet Toilet Toilet # Voids 0 # Bowel Movements 0 1 - Labs CBC & Chem 7: 05/12/19 10:46 05/12/19 10:46 Labs: Abnormal Lab Results - Last 24 Hours (Table) 05/12/19 05/12/19 05/12/19 Range/Units 06:26 06:26 06:50 WBC (3.8-10.6) k/uL RBC (3.80-5.40) m/uL Hgb (11.4-16.0) gm/dL Hct (34.0-46.0) % Neutrophils # (1.3-7.7) k/uL Lymphocytes # (1.0-4.8) k/uL Eosinophils # (0-0.7) k/uL PT 12.4 H (9.0-12.0) sec INR 1.2 H (<1.2) APTT 43.8 H (22.0-30.0) sec Sodium (137-145) mmol/L Carbon Dioxide (22-30) mmol/L BUN (7-17) mg/dL Creatinine (0.52-1.04) mg/dL Glucose (74-99) mg/dL Calcium (8.4-10.2) mg/dL TIBC 227 L (228-460) ug/dL % Saturation 47.58 H (12.00-45.00) Ferritin 676.9 H (10.0-291.0) ng/mL AST (14-36) U/L ALT (4-34) U/L Urine Protein Trace H (Negative) Urine Blood Trace H (Negative) Ur Leukocyte Esterase Moderate H (Negative) Urine WBC 6 H (0-5) /hpf Hyaline Casts 7 H (0-2) /lpf Urine Mucus Rare H (None) /hpf 05/12/19 05/12/19 Range/Units 10:46 10:46 WBC 42.7 H (3.8-10.6) k/uL RBC 2.92 L (3.80-5.40) m/uL Hgb 9.5 L (11.4-16.0) gm/dL Hct 29.2 L (34.0-46.0) % Neutrophils # 8.3 H (1.3-7.7) k/uL Lymphocytes # 31.3 H (1.0-4.8) k/uL Eosinophils # 1.0 H (0-0.7) k/uL PT (9.0-12.0) sec INR (<1.2) APTT (22.0-30.0) sec Sodium 133 L (137-145) mmol/L Carbon Dioxide 19 L (22-30) mmol/L BUN 66 H (7-17) mg/dL Creatinine 1.95 H (0.52-1.04) mg/dL Glucose 129 H (74-99) mg/dL Calcium 8.1 L (8.4-10.2) mg/dL TIBC (228-460) ug/dL % Saturation (12.00-45.00) Ferritin (10.0-291.0) ng/mL AST 195 H (14-36) U/L ALT 240 H (4-34) U/L Urine Protein (Negative) Urine Blood (Negative) Ur Leukocyte Esterase (Negative) Urine WBC (0-5) /hpf Hyaline Casts (0-2) /lpf Urine Mucus (None) /hpf <Holland Peña - Last Filed: 05/12/19 16:58> Subjective As above. Spoke with rheumatology. Organ biopsy preferred to skin biopsy. Tentative plans for renal biopsy. No surgical intervention planned at this time on my behalf. Will follow as needed. Objective - Vital Signs Vital signs: Vital Signs Temp 98.5 F 05/12/19 11:15 Pulse 74 05/12/19 11:15 Resp 16 05/12/19 11:15 BP 111/74 05/12/19 11:15 Pulse Ox 95 05/12/19 11:15 Intake & Output 05/11/19 05/12/19 05/12/19 18:59 06:59 18:59 Intake Total 615 580 240 Output Total 400 Balance 615 580 -160 Weight 62.2 kg 62.7 kg Intake: Intake, IV Titration 250 Amount Heparin Sod,Pork in 0.45% 250 NaCl 25,000 unit In 0.45 % NaCl 1 250ml.bag @ 12 UNITS/KG/HR 7.637 mls/hr IV .Q24H [facility] Rx#: [id number] Oral 365 580 240 Output: Urine 400 Other: Voiding Method Toilet Toilet Toilet # Voids 0 # Bowel Movements 0 1 - Labs CBC & Chem 7: 05/12/19 10:46 05/12/19 10:46 Labs: Abnormal Lab Results - Last 24 Hours (Table) 05/12/19 05/12/19 05/12/19 Range/Units 06:26 06:26 06:50 WBC (3.8-10.6) k/uL RBC (3.80-5.40) m/uL Hgb (11.4-16.0) gm/dL Hct (34.0-46.0) % Neutrophils # (1.3-7.7) k/uL Lymphocytes # (1.0-4.8) k/uL Eosinophils # (0-0.7) k/uL PT 12.4 H (9.0-12.0) sec INR 1.2 H (<1.2) APTT 43.8 H (22.0-30.0) sec Sodium (137-145) mmol/L Carbon Dioxide (22-30) mmol/L BUN (7-17) mg/dL Creatinine (0.52-1.04) mg/dL Glucose (74-99) mg/dL Calcium (8.4-10.2) mg/dL TIBC 227 L (228-460) ug/dL % Saturation 47.58 H (12.00-45.00) Ferritin 676.9 H (10.0-291.0) ng/mL AST (14-36) U/L ALT (4-34) U/L Urine Protein Trace H (Negative) Urine Blood Trace H (Negative) Ur Leukocyte Esterase Moderate H (Negative) Urine WBC 6 H (0-5) /hpf Hyaline Casts 7 H (0-2) /lpf Urine Mucus Rare H (None) /hpf 05/12/19 05/12/19 Range/Units 10:46 10:46 WBC 42.7 H (3.8-10.6) k/uL RBC 2.92 L (3.80-5.40) m/uL Hgb 9.5 L (11.4-16.0) gm/dL Hct 29.2 L (34.0-46.0) % Neutrophils # 8.3 H (1.3-7.7) k/uL Lymphocytes # 31.3 H (1.0-4.8) k/uL Eosinophils # 1.0 H (0-0.7) k/uL PT (9.0-12.0) sec INR (<1.2) APTT (22.0-30.0) sec Sodium 133 L (137-145) mmol/L Carbon Dioxide 19 L (22-30) mmol/L BUN 66 H (7-17) mg/dL Creatinine 1.95 H (0.52-1.04) mg/dL Glucose 129 H (74-99) mg/dL Calcium 8.1 L (8.4-10.2) mg/dL TIBC (228-460) ug/dL % Saturation (12.00-45.00) Ferritin (10.0-291.0) ng/mL AST 195 H (14-36) U/L ALT 240 H (4-34) U/L Urine Protein (Negative) Urine Blood (Negative) Ur Leukocyte Esterase (Negative) Urine WBC (0-5) /hpf Hyaline Casts (0-2) /lpf Urine Mucus (None) /hpf Assessment and Plan (1) Skin rash Current Visit: Yes Status: Acute Code(s): R21 - RASH AND OTHER NONSPECIFIC SKIN ERUPTION SNOMED Code(s): 799653103
[2019-05-12 13:47] LABS: C-ANCA <1:20 Titer (<1:20)
--- NOTE | 2019-05-12 13:47 | P.CON ---
Consult Note - . Consult date: 05/11/19 Assessment/Plan:: Patient is a 68-year-old female with past medical history of intermittent asthma and hypothyroidism who presented to the emergency department with worsening shortness of breath. Patient also does have history of pericardial effusion needing pericardial window back in 2018. Patient states about 3 weeks ago she started to notice a violaceous rash present on the soles of her feet and a petechial rash present on her palms and a scaly rash present on her abdomen and flank region.She states she does have some scaling on the feet as well. She states around the same time the rashes started she also started to notice achiness in the shoulder and left arm which then traveled to the right arm. Patient described the pain as burning and tingling. Patient states she decided to go to the ER as her shortness of breath was becoming so severe and she was concerned because of her prior history of pericardial effusion. In the ED patient's vital signs were stable, EKG revealed normal sinus rhythm with a rate of 93, normal axis, incomplete right bundle branch block, and inferior and lateral T-wave inversion. Bedside cardiac ultrasound showed no no signs of Effusion or Tamponade. Chest x-ray revealed cardiomegaly, CHF, and s mall pleural effusions. Labs revealed elevated WBC count at 21.6, low hemoglobin at 10.4, elevated lymphocytes at 8.64, elevated eosinophils at 6.91, normal PT, normal INR, normal PTT, elevated d-dimer at 1.32, elevated creatinine at 1.54, elevated AST at 44, elevated ALT at 43, elevated CK at 213, elevated CRP at 53.8, and elevated troponins at 1.880. Patient was admitted to the hospital and lower extremity ultrasound was negative for DVT bilaterally. Pulmonary perfusion imaging revealed numerous matching defects corresponding to a low to intermediate probability of pulmonary embolism, bilateral airway disease, and a low to intermediate probability of PE. Patient is currently on heparin infusion. Echocardiogram performed on 05/11/2019 revealed normal sinus rhythm, normal left ventricle size, mild concentric left ventricular hypertrophy, left ventricular systolic function is mildly impaired with an EF between 40-45%, there is evidence of pyridoxal septal motion, the right ventricle is mildly enlarged, left atrium is severely dilated over 40 ml/m2, the right atrium is normal in size, intra-atrial and intraventricular septum intact, there is mild aortic valve sclerosis, the mitral valve leaflets are mildly thickened, severe mitral regurgitation is present, severe tricuspid regurgitation present, there is mild pulmonary hypertension, the right ventricular systolic pressure as measured by Doppler is 37.41 mmHg, trace/mild pulmonic regurgitation, normal aortic root size, normal inferior vena cava with less than 50% respiratory collapse consistent with right atrial pressure of 20 mg Hg, there is no pericardial effusion. Chest CT without contrast performed on 05/11/2019 revealed mild to moderate cardiomegaly, small right trace left pleural effusions, possible septal lines in the lower lungs and to correlate for possible mild CHF, no pulmonary edema, prominent bands of atelectasis throughout the lungs, a couple borderline size mediastinal lymph nodes measuring up to 1.4 and 1.0 cm probably reactive. On exam patient did seem SOB with light activities of taking her socks off and while sitting up in bed. Purple reticular lacy rash present on the surface of bilateral feet. Petechia present on the palms. Fine scaly rash present on the abdomen and back. Lesions are nontender. Patient does have negative MELECIO although this does not always rule out vasculitis. Patient does have negative MELECIO and negative double-stranded DNA so SLE is less likely. Sometimes reticular pattern of rash can be seen in in DIC so this needs to be considered and I will order cardiolipin antibodies and lupus anticoagulant today. I think infection is more likely and ID should be consulted as sepsis needs to be considered. I will order ANCA panel, and RF to further evaluate for vasculitis. Patient is anemic and I will order iron panel with serum ferritin to evaluate for iron deficiency anemia vs anemia of chronic disease. Patient is on prednisone 40 mg BID currently which should be continued. Sometimes vasculitis can present and have negative MELECIO and negative ANCA screen and the only way to diagnose would be kidney biopsy and it looks like patient is being evaluated for this. Addendum: The patient also reports a history of elevated WBC 2 years back and saw a solid propellant processor on [address] and she did not do anything at the time and told her she needs to be monitored and was initially concerned about something like leukemia. I would recommend a hematology consult and infectious disease though DIC is unlikley with a normal platelet level.
--- NOTE | 2019-05-12 14:33 | P.PN ---
Subjective Progress Note Date: 05/12/19 Patient seen and examined at bedside, apparently has had rash on the soles of her feet that were pruritic with some erythema that began 4 weeks ago, she also complained of numbness and tingling in her upper arms and legs, and also complained of a rash on her abdomen and flank area. her white count is up to 42.7 from 29.4 serum sodium was 133, Creatinine stabilizing at 1.95 , The patient continues on heparin troponin level yesterday was 1.76. No acute events overnight, the patient does report improvement of her rash and itchiness. the patient was not on daily doses of aspirin received 1 dose of 81 mg during this hospitalization. Objective - Vital Signs Vital signs: Vital Signs Temp 98.5 F 05/12/19 11:15 Pulse 74 05/12/19 11:15 Resp 16 05/12/19 11:15 BP 111/74 05/12/19 11:15 Pulse Ox 95 05/12/19 11:15 Intake & Output 05/11/19 05/12/19 05/12/19 18:59 06:59 18:59 Intake Total 615 580 240 Output Total 400 Balance 615 580 -160 Weight 62.2 kg 62.7 kg Intake: Intake, IV Titration 250 Amount Heparin Sod,Pork in 0.45% 250 NaCl 25,000 unit In 0.45 % NaCl 1 250ml.bag @ 12 UNITS/KG/HR 7.637 mls/hr IV .Q24H [facility] Rx#: [id number] Oral 365 580 240 Output: Urine 400 Other: Voiding Method Toilet Toilet Toilet # Voids 0 # Bowel Movements 0 1 - Exam Constitutional: No acute distress, conversant, pleasant Eyes: Anicteric sclerae, moist conjunctiva, no lid-lag, PERRLA ENMT: NC/AT,Oropharynx clear, no erythema, exudates Neck:Supple, FROM, no masses, or JVD, No carotid bruits; No thyromegaly Lungs: Clear to auscultation, Clear to percussion, Normal respiratory effort, no accessory muscle use Cardiovascular: Heart regular in rate and rhythm, 2/6 systolic ejection murmur Abdominal: Soft Nontender, nom distended, no guarding, no rebound or rigidity, Normoactive bowel sounds No hepatomegaly, No splenomegaly, No palpable mass No abdominal wall hernia noted Skin: He care rashes in the hands and fingers and sole of the feet in addition to areas of large ecchymotic skin changes in the feet bilaterally. Similar lesions are also present in the abdomen and the posterior back and the trunk. Extremities:No digital cyanosis No clubbing, Pedal pulses intact and symmetrical Radial pulses intact and symmetrical Normal gait and station, No calf tenderness Psychiatric: Alert and oriented to person, place and time, Appropriate affect Intact judgement Neuro: Muscles Strength 5/5 in all 4 extremities, Sensation to light touch grossly present throughout, Cranial nerves II-XII grossly intact. No focal sensory deficits - Labs CBC & Chem 7: 05/12/19 10:46 05/12/19 10:46 Labs: Abnormal Lab Results - Last 24 Hours (Table) 05/12/19 05/12/19 05/12/19 Range/Units 06:26 06:26 06:50 WBC (3.8-10.6) k/uL RBC (3.80-5.40) m/uL Hgb (11.4-16.0) gm/dL Hct (34.0-46.0) % Neutrophils # (1.3-7.7) k/uL Lymphocytes # (1.0-4.8) k/uL Eosinophils # (0-0.7) k/uL PT 12.4 H (9.0-12.0) sec INR 1.2 H (<1.2) APTT 43.8 H (22.0-30.0) sec Sodium (137-145) mmol/L Carbon Dioxide (22-30) mmol/L BUN (7-17) mg/dL Creatinine (0.52-1.04) mg/dL Glucose (74-99) mg/dL Calcium (8.4-10.2) mg/dL TIBC 227 L (228-460) ug/dL % Saturation 47.58 H (12.00-45.00) Ferritin 676.9 H (10.0-291.0) ng/mL AST (14-36) U/L ALT (4-34) U/L Urine Protein Trace H (Negative) Urine Blood Trace H (Negative) Ur Leukocyte Esterase Moderate H (Negative) Urine WBC 6 H (0-5) /hpf Hyaline Casts 7 H (0-2) /lpf Urine Mucus Rare H (None) /hpf 05/12/19 05/12/19 Range/Units 10:46 10:46 WBC 42.7 H (3.8-10.6) k/uL RBC 2.92 L (3.80-5.40) m/uL Hgb 9.5 L (11.4-16.0) gm/dL Hct 29.2 L (34.0-46.0) % Neutrophils # 8.3 H (1.3-7.7) k/uL Lymphocytes # 31.3 H (1.0-4.8) k/uL Eosinophils # 1.0 H (0-0.7) k/uL PT (9.0-12.0) sec INR (<1.2) APTT (22.0-30.0) sec Sodium 133 L (137-145) mmol/L Carbon Dioxide 19 L (22-30) mmol/L BUN 66 H (7-17) mg/dL Creatinine 1.95 H (0.52-1.04) mg/dL Glucose 129 H (74-99) mg/dL Calcium 8.1 L (8.4-10.2) mg/dL TIBC (228-460) ug/dL % Saturation (12.00-45.00) Ferritin (10.0-291.0) ng/mL AST 195 H (14-36) U/L ALT 240 H (4-34) U/L Urine Protein (Negative) Urine Blood (Negative) Ur Leukocyte Esterase (Negative) Urine WBC (0-5) /hpf Hyaline Casts (0-2) /lpf Urine Mucus (None) /hpf Assessment and Plan Assessment: Diffuse petechial rash and arthralgias * Concern for underlying vasculitis possibly leuko-clastic presenting with elevated white count * Serological workup pending MELECIO, complement C3/4, Lyme's disease all negative, hep panel negative ESR elevated, Anka and RF pending * Appreciate rheumatological consultation ordered GS consulted for possible dermal biopsy Acute kidney injury * With microscopic hematuria with kidney function stabilizing at 1.95 * Discussed with Dr. Mcclain and the patient will have kidney biopsy by interventional radiology in the a.m. Systolic CHF * EF around 45% with severe MR and mild pulmonary hypertension * NT proBNP is 31 300 with chest x-ray showing hepatomegaly and some pulmonary vascular congestion Leukocytosis * Were staying currently on steroids will consult ID and hematology for further recommendations * Patiently currently afebrile and has been so throughout hospitalization * We'll check blood culture, urine culture no growth, right upper quadrant ultrasound pending * CT of chest yesterday showed small right and trace left pleural effusions, with bands of atelectasis, reactive mediastinal lymph nodes measuring 1.4 and 1.0 respectively. Elevated D dimer * Patient currently on heparin, VQ scan yielding low to intermediate probability of PE with several numerous matching defects on VQ scan Transaminitis * Check right upper quadrant ultrasound Elevated troponin * Possibly secondary to the viral myocarditis disposition * Continue to monitor closely
--- NOTE | 2019-05-12 15:59 | P.PN ---
Subjective Progress Note Date: 05/12/19 Principal diagnosis: Diffuse petechial rash with areas of ecchymosis, acute kidney injury, hematuria, arthralgias, history of pericardial effusion This is a pleasant 68-year-old female patient is known to me. She has history of mild intermittent bronchial asthma and is taking care of her lungs for many years. The patient was in the hospital few years back where she developed an acute pericarditis/pericardial effusion and the patient required pericardial window and back then had MELECIO was negative and the fluid that was analyzed from the pericardial effusion showed no evidence of any malignancy. She is coming into the emergency department because of shortness of breath, diffuse body aches and she has developed some petechial rash in his fingers and her feet and has shrunk in addition to some areas of large ecchymotic areas in her feet bilaterally. These prakash of an iron of developing for the past several weeks. During that time she developed generalized body aches and some shortness of breath and chest discomfort. She also reports some tingling and burning sen sation in her hands and feet. Around 3 days ago, she developed worsening shortness of breath and she thought that this was similar to the pericardial effusion episodes that she had earlier and for that reason she presented herself to the emergency department. She denied having any fever or chills. No pleurisy. The patient was seen in ED. D-dimer was elevated and the patient was given a VQ scan that came back positive for several numerous matching defects which was of a low to intermediate probability for pulmonary embolism. Chest x- ray shows hepatomegaly and some mild pulmonary vascular congestion. Doppler of the lower extremity was negative for DVT. White cell count was at 21.6. H emoglobin was at 10.4. [place] 365[address]. LFTs were within normal limits. The UA showed blood, around 40 RBCs and 14 WBCs and influenza screen was negative. The CPK was 213. C-reactive protein was 53. Serum albumin was 3.7 with a protein of 7.1. TSH was 2.7. Troponins peaked at 1.85 and is currently down to 1.7. She is currently on IV heparin. She has been of an acute kidney injury in the creatinine is up to 1.69 on today's evaluation. Her other comorbidities include hypothyroidism, kidney stones and borderline osteoporosis in addition to bronchial asthma. On today's evaluation of 05/11/2019 the patient tells that she gets out of breath easily. He is on oxygen at 2 L per minute nasal cannula. No angina. Her creatinine is got worse since up to 1.9.Her BUN is a 53. The rest of the electrodes are all within normal limits. Her white cell count is up to 29.4. She is on IV heparin. She is also on prednisone that was started by the primary care team. No other new complaints for now. No altered mentation. ET tube lesions on her skin are still present. Nephrology consultations been orders. Serum markers for various causes of vasculitis of also ordered and the results are still pending for now. The echo was also completed and the patient has mild impairment of the LV function with an EF of around 40-45%. RV is mildly enlarged. There is severe MR, severe TR, PA pressures are 37 mmHg and there is normal inspiratory collapse of the IVC indicating no signs of a fluid overload On 05/12/2019 a is seen in follow-up on selective care unit. She is awake and alert, in no acute distress, room air pulse ox is 95%, still mildly dyspneic, but no acute distress, denies any chest pain. Hemodynamically stable, she is afebrile. No cough or congestion. Today's blood work has been reviewed showing white blood cell count of 42.7, hemoglobin of 9.5, sodium of 133, potassium of 4.5, chloride is 101, CO2 is 19, BUN of 66 and creatinine is 1.95, AST has increased to 195 from 61 on yesterday's labs, ALT up to 240, alkaline phosphatase is 95. RF was negative at less than 4, MELECIO screen is negative, p- ANCA and c-ANCA negative, complement C3 and C4 are within normal limits, rheumatology consultation was noted that stated that infectious etiology should be considered and to rule out DIC and sepsis. Patient is currently on oral prednisone and reports some improvement with itchiness. Nephrology is on and is planning on a renal biopsy sometime tomorrow. Gen. surgery has no immediate plans for skin biopsy at this time Objective - Vital Signs Vital signs: Vital Signs Temp 98.5 F 05/12/19 11:15 Pulse 74 05/12/19 11:15 Resp 16 05/12/19 11:15 BP 111/74 05/12/19 11:15 Pulse Ox 95 05/12/19 11:15 Intake & Output 05/11/19 05/12/19 05/12/19 18:59 06:59 18:59 Intake Total 615 580 240 Output Total 400 Balance 615 580 -160 Weight 62.2 kg 62.7 kg Intake: Intake, IV Titration 250 Amount Heparin Sod,Pork in 0.45% 250 NaCl 25,000 unit In 0.45 % NaCl 1 250ml.bag @ 12 UNITS/KG/HR 7.637 mls/hr IV .Q24H [facility] Rx#: [id number] Oral 365 580 240 Output: Urine 400 Other: Voiding Method Toilet Toilet Toilet # Voids 0 # Bowel Movements 0 1 - Exam GENERAL EXAM: Alert, active, comfortable in no apparent distress. HEAD: Normocephalic/atraumatic. EYES: Normal reaction of pupils, equal size. Conjunctiva pink, sclera white. NOSE: Clear with pink turbinates. THROAT: No erythema or exudates. NECK: No masses, no JVD, no thyroid enlargement, no adenopathy. CHEST: No chest wall deformity. Symmetrical expansion. LUNGS: Equal air entry with no crackles, wheeze, rhonchi or dullness. CVS: Regular rate and rhythm, normal S1 and S2, no gallops, no murmurs, no rubs ABDOMEN: Soft, nontender. No hepatosplenomegaly, normal bowel sounds, no guarding or rigidity. EXTREMITIES: No clubbing, no edema, no cyanosis, 2+ pulses and upper and lower extremities. MUSCULOSKELETAL: Muscle strength and tone normal. SPINE: No scoliosis or deformity SKIN: No rashes CENTRAL NERVOUS SYSTEM: Alert and oriented -3. No focal deficits, tone is normal in all 4 extremities. PSYCHIATRIC: Alert and oriented -3. Appropriate affect. Intact judgment and insight. - Labs CBC & Chem 7: 05/12/19 10:46 05/12/19 10:46 Labs: Abnormal Lab Results - Last 24 Hours (Table) 05/12/19 05/12/19 05/12/19 Range/Units 06:26 06:26 06:50 WBC (3.8-10.6) k/uL RBC (3.80-5.40) m/uL Hgb (11.4-16.0) gm/dL Hct (34.0-46.0) % Neutrophils # (1.3-7.7) k/uL Lymphocytes # (1.0-4.8) k/uL Eosinophils # (0-0.7) k/uL PT 12.4 H (9.0-12.0) sec INR 1.2 H (<1.2) APTT 43.8 H (22.0-30.0) sec Sodium (137-145) mmol/L Carbon Dioxide (22-30) mmol/L BUN (7-17) mg/dL Creatinine (0.52-1.04) mg/dL Glucose (74-99) mg/dL Calcium (8.4-10.2) mg/dL TIBC 227 L (228-460) ug/dL % Saturation 47.58 H (12.00-45.00) Ferritin 676.9 H (10.0-291.0) ng/mL AST (14-36) U/L ALT (4-34) U/L Urine Protein Trace H (Negative) Urine Blood Trace H (Negative) Ur Leukocyte Esterase Moderate H (Negative) Urine WBC 6 H (0-5) /hpf Hyaline Casts 7 H (0-2) /lpf Urine Mucus Rare H (None) /hpf 05/12/19 05/12/19 Range/Units 10:46 10:46 WBC 42.7 H (3.8-10.6) k/uL RBC 2.92 L (3.80-5.40) m/uL Hgb 9.5 L (11.4-16.0) gm/dL Hct 29.2 L (34.0-46.0) % Neutrophils # 8.3 H (1.3-7.7) k/uL Lymphocytes # 31.3 H (1.0-4.8) k/uL Eosinophils # 1.0 H (0-0.7) k/uL PT (9.0-12.0) sec INR (<1.2) APTT (22.0-30.0) sec Sodium 133 L (137-145) mmol/L Carbon Dioxide 19 L (22-30) mmol/L BUN 66 H (7-17) mg/dL Creatinine 1.95 H (0.52-1.04) mg/dL Glucose 129 H (74-99) mg/dL Calcium 8.1 L (8.4-10.2) mg/dL TIBC (228-460) ug/dL % Saturation (12.00-45.00) Ferritin (10.0-291.0) ng/mL AST 195 H (14-36) U/L ALT 240 H (4-34) U/L Urine Protein (Negative) Urine Blood (Negative) Ur Leukocyte Esterase (Negative) Urine WBC (0-5) /hpf Hyaline Casts (0-2) /lpf Urine Mucus (None) /hpf Assessment and Plan Plan: Assessment: 1 diffuse petechial rash with areas of ecchymosis. Findings are suggestive of vasculitis . A considerable vasculitis especially the patient has had some hematuria, acute kidney injury previous history of pericarditis and pericardial effusions. Further workup is needed in that regard. Rule out polyangiitis. Rule out lupus. The workup for vasculitis still in progress. Serum markers were sent and are negative thus far. Rheumatology is on consult, suggesting DIC and infectious disease workup 2 acute kidney injury, there is worsening in the renal function and creatinine is up to 1.9. Awaiting nephrology evaluation, consider a kidney biopsy 3 hematuria, microscopic 4 diffuse arthralgias 5 leukocytosis, interval worsening in the white cell count is up to 29 6 history of pericardial effusion post window 7 bronchial asthma 8 CHF with mild impairment of LV function EF of around 45% along with severe MR and mild secondary pulmonary hypertension Plan: Discussed the case with attending physician, and renal biopsy is expected to be done tomorrow. Rheumatology consultation has been noted. We'll continue to follow with rheumatology and nephrology. Possibility of transfer to tertiary care center was discussed and patient is agreeable if that's what is being recommended. I performed a history & physical examination of the patient and discussed their management with my nurse practitioner, Lori Kirkland. I reviewed the nurse practitioner's note and agree with the documented findings and plan of care. Lung sounds are positive for diffuse wheezes throughout the lung arango. The findings and the impression was discussed with the patient. I attest to the documentation by the nurse practitioner. Time with Patient: Less than 30
--- NOTE | 2019-05-12 17:50 | PN ---
PROGRESS NOTE Patient is seen for followup for acute kidney injury. She was admitted with complaints of shortness of breath and rash, mainly on her soles and petechial rash all over which seems to have faded. Serum creatinine is staying at about 1.9 mg/dL. Previous creatinine was 1.01 on 10/28/2018. The patient had received just one dose of aspirin this admission. She was not maintained on aspirin as outpatient, therefore, her kidney biopsy can be performed, she is scheduled for tomorrow. So far all serologies are negative. Patient has been evaluated by Rheumatology and ID has been consulted. Her white cell count is significantly elevated. There is concern for possible underlying infection. However, patient is maintained on prednisone. PHYSICAL EXAMINATION: This morning blood pressure was 110/72, heart rate 78 per minute, patient is afebrile. Examination of the heart S1, S2. Examination of the lungs, bilateral breath sounds are heard. Abdomen is soft, nontender. Examination of lower extremities shows no significant edema. DRONE PILOT exam grossly intact. LABS: Show hemoglobin 9.5, sodium 133, potassium 4.5, chloride 101. CO2 is 19, BUN 66, creatinine 1.95. UA shows trace protein, trace blood, moderate leukocyte esterase, which is changed from 1+ on 05/09/2019 on the protein. ASSESSMENT: 1. Acute kidney injury. Rule out underlying acute glomerulonephritis. Patient was also on NSAIDs prior to admission which are currently on hold. She is maintained on prednisone and is scheduled for a kidney biopsy in a.m. So far all serologies are negative. Maintain patient off of IV fluids. 2. Elevated white count, most likely related to the steroids. Infectious Disease has been consulted. 3. Anemia. No evidence of iron deficiency. 4. Rash, possible underlying vasculitis. Skin biopsy not being done as patient is scheduled for kidney biopsy tomorrow morning. PLAN: Continue with the current dose of prednisone. Kidney biopsy in a.m. Follow up on results. We should have the results within 24 hours after the biopsy is done. MMODL / IJN: [id number] /
[2019-05-12 18:03] LABS: Cardiolipin Ab IgG Interp NEGATIVE (NEGATIVE); Cardiolipin Ab IgM Interp NEGATIVE (NEGATIVE); Cardiolipin IgA Antibody 0.7 U/mL; Cardiolipin IgM Antibody 1.7 U/mL
[2019-05-12] MEDS: HEPARIN SOD,PORK IN 0.45% NACL 25,000 UNIT in 0.45% NACL 1 250ML.BAG IV SCH (19:42)
[2019-05-12 23:43] LABS: Protein, Total 6.6 g/dL (6.2-8.2)
[2019-05-13 04:24] VITALS: RESP 16
[2019-05-13 06:32] LABS: HCT 28.9 % (34.0-46.0); HGB 9.6 gm/dL (11.4-16.0); MCH 33.3 pg (25.0-35.0); MCHC 33.2 g/dL (31.0-37.0); MCV 100.1 fL (80.0-100.0); Macrocytosis Slight; Platelet Count 330 k/uL (150-450); RBC 2.89 m/uL (3.80-5.40); RDW 14.6 % (11.5-15.5)
[2019-05-13 06:46] LABS: Albumin 3.5 g/dL (3.5-5.0); Calcium 7.9 mg/dL (8.4-10.2); Potassium 4.5 mmol/L (3.5-5.1); Total Bilirubin 0.6 mg/dL (0.2-1.3); Total Protein 6.7 g/dL (6.3-8.2)
[2019-05-13 07:03] LABS: Band Neutrophils % 1 %; Metamyelocytes % 1 %; Neutrophils % (M) 17 %; Nucleated Red Blood Cells 1 /100 WBC (0-0); Total Cells Counted 200
[2019-05-13 07:04] LABS: Lymphocytes # (M) 36.41 k/uL (1.0-4.8); Metamyelocytes # (M) 0.44 k/uL (0); Polychromasia Present; WBC 44.4 k/uL (3.8-10.6)
[2019-05-13 08:43] LABS: Free Kappa Lt Chain Qnt, Serum 4.05 mg/dL (0.33-1.94)
[2019-05-13] MEDS: METOPROLOL TARTRATE 25 MG TAB PO SCH ×2 (09:01→21:22)
[2019-05-13] MEDS: predniSONE 20 MG TAB PO SCH ×2 (09:01→21:22)
--- NOTE | 2019-05-13 10:57 | US ---
EXAMINATION TYPE: US abdomen limited DATE OF EXAM: 05/13/2019 COMPARISON: Ultrasound dated 05/30/2013 CLINICAL HISTORY: transaminitis . transaminitis, nausea, cholecystectomy EXAM MEASUREMENTS: Liver Length: 18.4 cm Gallbladder Wall: Surgically absent CBD: 0.3 cm Right Kidney: 8.6 x 3.4 x 4.7 cm Pancreas: Tail obscured by overlying bowel gas Liver: enlarged and questionable coarse echotexture Gallbladder: Surgically absent Evidence for sonographic Young's sign: no CBD: limited evaluation Right Kidney: no evidence of hydronephrosis, cortical medullary differentiation is maintained Incidental right pleural effusion. IMPRESSION: Postop change, limited exam. Hepatomegaly with possible underlying hepatocellular disease . Right pleural effusion.
--- NOTE | 2019-05-13 12:21 | P.PN ---
Subjective Progress Note Date: 05/13/19 The patient to examine daughter present at bedside, the patient denies any nausea vomiting or abdominal pain, liver enzymes continue to be elevated right upper quadrant ultrasound Indicating hepatomegaly With possible underlying hepatocellular disease. The patient is scheduled to have her renal biopsy. A white count is up to 44.4, hemoglobin stable at 9.6. Serum sodium 133, serum bicarb 16, creatinine 1.77. kappa and lambda light chains elevated. Patient reports improvement of her rash and denies any itchiness today. Objective - Vital Signs Vital signs: Vital Signs Temp 98.0 F 05/13/19 04:00 Pulse 74 05/13/19 04:00 Resp 16 05/13/19 04:00 BP 112/73 05/13/19 04:00 Pulse Ox 98 05/13/19 04:00 Intake & Output 05/12/19 05/13/19 05/13/19 18:59 06:59 18:59 Intake Total 490 820 Output Total 400 Balance 90 820 Weight 63 kg Intake: Intake, IV Titration 250 160 Amount Heparin Sod,Pork in 0.45% 250 NaCl 25,000 unit In 0.45 % NaCl 1 250ml.bag @ 12 UNITS/KG/HR 7.637 mls/hr IV .Q24H [facility] Rx#: [id number] Sodium Chloride 0.9% 1, 160 000 ml @ 20 mls/hr IV . Q24H [facility] Rx#:[id number] Oral 240 660 Output: Urine 400 Other: Voiding Method Toilet Toilet # Voids 1 - Exam Constitutional: No acute distress, conversant, pleasant Eyes: Anicteric sclerae, moist conjunctiva, no lid-lag, PERRLA ENMT: NC/AT,Oropharynx clear, no erythema, exudates Neck:Supple, FROM, no masses, or JVD, No carotid bruits; No thyromegaly Lungs: Clear to auscultation, Clear to percussion, Normal respiratory effort, no accessory muscle use Cardiovascular: Heart regular in rate and rhythm, 2/6 systolic ejection murmur Abdominal: Soft Nontender, nom distended, no guarding, no rebound or rigidity, Normoactive bowel sounds No hepatomegaly, No splenomegaly, No palpable mass No abdominal wall hernia noted Skin: He care rashes in the hands and fingers and sole of the feet in addition to areas of large ecchymotic skin changes in the feet bilaterally. Similar lesions are also present in the abdomen and the posterior back and the trunk. Extremities:No digital cyanosis No clubbing, Pedal pulses intact and symmetrical Radial pulses intact and symmetrical Normal gait and station, No calf tenderness Psychiatric: Alert and oriented to person, place and time, Appropriate affect Intact judgement Neuro: Muscles Strength 5/5 in all 4 extremities, Sensation to light touch grossly present throughout, Cranial nerves II-XII grossly intact. No focal sens ory deficits - Labs CBC & Chem 7: 05/13/19 06:08 05/13/19 06:08 Labs: Abnormal Lab Results - Last 24 Hours (Table) 05/12/19 05/12/19 05/12/19 Range/Units 10:46 10:46 17:47 WBC 42.7 H (3.8-10.6) k/uL RBC 2.92 L (3.80-5.40) m/uL Hgb 9.5 L (11.4-16.0) gm/dL Hct 29.2 L (34.0-46.0) % MCV (80.0-100.0) fL Neutrophils # 8.3 H (1.3-7.7) k/uL Neutrophils # (Manual) (1.3-7.7) k/uL Lymphocytes # 31.3 H (1.0-4.8) k/uL Lymphocytes # (Manual) (1.0-4.8) k/uL Eosinophils # 1.0 H (0-0.7) k/uL Metamyelocytes # (Man) (0) k/uL Nucleated RBCs (0-0) /100 WBC ESR 26 H (0-20) mm/hr APTT (22.0-30.0) sec Sodium (137-145) mmol/L Carbon Dioxide (22-30) mmol/L BUN (7-17) mg/dL Creatinine (0.52-1.04) mg/dL Glucose (74-99) mg/dL Calcium (8.4-10.2) mg/dL AST (14-36) U/L ALT (4-34) U/L Free [place] LC, Quant 4.05 H (0.33-1.94) mg/dL Free Lambda LC, Quant 2.92 H (0.57-2.63) mg/dL 05/13/19 05/13/19 05/13/19 Range/Units 06:08 06:08 06:08 WBC 44.4 H (3.8-10.6) k/uL RBC 2.89 L (3.80-5.40) m/uL Hgb 9.6 L (11.4-16.0) gm/dL Hct 28.9 L (34.0-46.0) % MCV 100.1 H (80.0-100.0) fL Neutrophils # (1.3-7.7) k/uL Neutrophils # (Manual) 7.90 H (1.3-7.7) k/uL Lymphocytes # (1.0-4.8) k/uL Lymphocytes # (Manual) 36.41 H (1.0-4.8) k/uL Eosinophils # (0-0.7) k/uL Metamyelocytes # (Man) 0.44 H (0) k/uL Nucleated RBCs 1 H (0-0) /100 WBC ESR (0-20) mm/hr APTT 47.9 H (22.0-30.0) sec Sodium 133 L (137-145) mmol/L Carbon Dioxide 16 L (22-30) mmol/L BUN 63 H (7-17) mg/dL Creatinine 1.77 H (0.52-1.04) mg/dL Glucose 145 H (74-99) mg/dL Calcium 7.9 L (8.4-10.2) mg/dL AST 249 H (14-36) U/L ALT 342 H (4-34) U/L Free [place] LC, Quant (0.33-1.94) mg/dL Free Lambda LC, Quant (0.57-2.63) mg/dL Assessment and Plan Assessment: Diffuse petechial rash and arthralgias * Concern for underlying vasculitis possibly leuko-clastic presenting with elevated white count * Serological workup pending MELECIO, complement C3/4, Lyme's disease all negative, hep panel negative ESR elevated, ANCA and RF pending * Appreciate rheumatological consultation ordered GS consulted for possible dermal biopsy Acute kidney injury * With microscopic hematuria with kidney function stabilizing at 1.77 * Discussed with Dr. Mcclain and the patient will have kidney biopsy by interventional radiology today Systolic CHF * EF around 45% with severe MR and mild pulmonary hypertension * NT proBNP is 31 300 with chest x-ray showing hepatomegaly and some pulmonary vascular congestion Leukocytosis * trending up 10 44.4 currently on steroids will consult ID and hematology for further recommendations * Patiently currently afebrile and has been so throughout hospitalization * We'll check blood culture, urine culture no growth * CT of chest yesterday showed small right and trace left pleural effusions, with bands of atelectasis, reactive mediastinal lymph nodes measuring 1.4 and 1.0 respectively. Elevated D dimer * Patient currently on heparin, VQ scan yielding low to intermediate probability of PE with several numerous matching defects on VQ scan Transaminitis * Ultrasound showing hepatomegaly with possible underlying hepatic cellular disease * O plan to consult GI for further recommendations Elevated troponin * Possibly secondary to the viral myocarditis disposition * Continue to monitor closely
[2019-05-13 12:25] LABS: Albumin 3.29 g/dL (3.80-4.90)
[2019-05-13 12:44] LABS: APTT 117 Sec(s) (<43); APTT 1:1 Mix 77 Sec(s) (<43); DRVVT 1:1 Mix 41 Sec(s) (<44); Dilute Russell Viper Venom 49 Sec(s) (<44); Hexagonal Phase Neutralization Negative (Negative)
--- NOTE | 2019-05-13 13:21 | P.PN ---
Subjective Progress Note Date: 05/13/19 Principal diagnosis: Diffuse petechial rash with areas of ecchymosis, acute kidney injury, hematuria, arthralgias, history of pericardial effusion This is a pleasant 68-year-old female patient is known to me. She has history of mild intermittent bronchial asthma and is taking care of her lungs for many years. The patient was in the hospital few years back where she developed an acute pericarditis/pericardial effusion and the patient required pericardial window and back then had MELECIO was negative and the fluid that was analyzed from the pericardial effusion showed no evidence of any malignancy. She is coming into the emergency department because of shortness of breath, diffuse body aches and she has developed some petechial rash in his fingers and her feet and has shrunk in addition to some areas of large ecchymotic areas in her feet bilaterally. These prakash of an iron of developing for the past several weeks. During that time she developed generalized body aches and some shortness of breath and chest discomfort. She also reports some tingling and burning sen sation in her hands and feet. Around 3 days ago, she developed worsening shortness of breath and she thought that this was similar to the pericardial effusion episodes that she had earlier and for that reason she presented herself to the emergency department. She denied having any fever or chills. No pleurisy. The patient was seen in ED. D-dimer was elevated and the patient was given a VQ scan that came back positive for several numerous matching defects which was of a low to intermediate probability for pulmonary embolism. Chest x- ray shows hepatomegaly and some mild pulmonary vascular congestion. Doppler of the lower extremity was negative for DVT. White cell count was at 21.6. H emoglobin was at 10.4. ProB[place] [address]502. LFTs were within normal limits. The UA showed blood, around 40 RBCs and 14 WBCs and influenza screen was negative. The CPK was 213. C-reactive protein was 53. Serum albumin was 3.7 with a protein of 7.1. TSH was 2.7. Troponins peaked at 1.85 and is currently down to 1.7. She is currently on IV heparin. She has been of an acute kidney injury in the creatinine is up to 1.69 on today's evaluation. Her other comorbidities include hypothyroidism, kidney stones and borderline osteoporosis in addition to bronchial asthma. On today's evaluation of 05/11/2019 the patient tells that she gets out of breath easily. He is on oxygen at 2 L per minute nasal cannula. No angina. Her creatinine is got worse since up to 1.9.Her BUN is a 53. The rest of the electrodes are all within normal limits. Her white cell count is up to 29.4. She is on IV heparin. She is also on prednisone that was started by the primary care team. No other new complaints for now. No altered mentation. ET tube lesions on her skin are still present. Nephrology consultations been orders. Serum markers for various causes of vasculitis of also ordered and the results are still pending for now. The echo was also completed and the patient has mild impairment of the LV function with an EF of around 40-45%. RV is mildly enlarged. There is severe MR, severe TR, PA pressures are 37 mmHg and there is normal inspiratory collapse of the IVC indicating no signs of a fluid overload On 05/12/2019 a is seen in follow-up on selective care unit. She is awake and alert, in no acute distress, room air pulse ox is 95%, still mildly dyspneic, but no acute distress, denies any chest pain. Hemodynamically stable, she is afebrile. No cough or congestion. Today's blood work has been reviewed showing white blood cell count of 42.7, hemoglobin of 9.5, sodium of 133, potassium of 4.5, chloride is 101, CO2 is 19, BUN of 66 and creatinine is 1.95, AST has increased to 195 from 61 on yesterday's labs, ALT up to 240, alkaline phosphatase is 95. RF was negative at less than 4, MELECIO screen is negative, p- ANCA and c-ANCA negative, complement C3 and C4 are within normal limits, rheumatology consultation was noted that stated that infectious etiology should be considered and to rule out DIC and sepsis. Patient is currently on oral prednisone and reports some improvement with itchiness. Nephrology is on and is planning on a renal biopsy sometime tomorrow. Gen. surgery has no immediate plans for skin biopsy at this time On 05/13/2019 patient seen in follow-up on selective care unit. She is awake and alert, has exertional dyspnea, but no distress at rest, she is on 2 L of oxygen with a pulse ox of 98%, hemodynamically stable, afebrile, no complaints of chest pain, the rash on her abdomen seems to be improving, still has the rash on the bottoms of her feet, Rheumatology workup is in progress. Urinalysis is negative, urine culture has been negative. No cough or congestion, abdominal ultrasound was done in view of elevated liver transaminases, and showed hepatomegaly with possible underlying hepatocellular disease, and right pleural effusion. Gallbladder was surgically absent. Patient was supposed to have kidney biopsy today, however because of her aspirin has been on hold only for 2 days she is not able to have her kidney biopsy today. Objective - Vital Signs Vital signs: Vital Signs Temp 98.0 F 05/13/19 04:00 Pulse 74 05/13/19 04:00 Resp 16 05/13/19 04:00 BP 112/73 05/13/19 04:00 Pulse Ox 98 05/13/19 04:00 Intake & Output 05/12/19 05/13/19 05/13/19 18:59 06:59 18:59 Intake Total 490 820 Output Total 400 Balance 90 820 Weight 63 kg Intake: Intake, IV Titration 250 160 Amount Heparin Sod,Pork in 0.45% 250 NaCl 25,000 unit In 0.45 % NaCl 1 250ml.bag @ 12 UNITS/KG/HR 7.637 mls/hr IV .Q24H LUCIA Rx#: [id number] Sodium Chloride 0.9% 1, 160 000 ml @ 20 mls/hr IV . Q24H STA Rx#:[id number] Oral 240 660 Output: Urine 400 Other: Voiding Method Toilet Toilet # Voids 1 - Exam GENERAL EXAM: Alert, active, comfortable in no apparent distress. HEAD: Normocephalic/atraumatic. EYES: Normal reaction of pupils, equal size. Conjunctiva pink, sclera white. NOSE: Clear with pink turbinates. THROAT: No erythema or exudates. NECK: No masses, no JVD, no thyroid enlargement, no adenopathy. CHEST: No chest wall deformity. Symmetrical expansion. LUNGS: Equal air entry with mild bibasilar crackles, no wheeze, rhonchi or dullness. CVS: Regular rate and rhythm, normal S1 and S2, no gallops, no murmurs, no rubs ABDOMEN: Soft, nontender. No hepatosplenomegaly, normal bowel sounds, no guarding or rigidity. EXTREMITIES: No clubbing, no edema, no cyanosis, 2+ pulses and upper and lower extremities. MUSCULOSKELETAL: Muscle strength and tone normal. SPINE: No scoliosis or deformity SKIN: No rashes CENTRAL NERVOUS SYSTEM: Alert and oriented -3. No focal deficits, tone is normal in all 4 extremities. PSYCHIATRIC: Alert and oriented -3. Appropriate affect. Intact judgment and insight. - Labs CBC & Chem 7: 05/13/19 06:08 05/13/19 06:08 Labs: Abnormal Lab Results - Last 24 Hours (Table) 05/12/19 05/12/19 05/12/19 Range/Units 10:46 10:46 17:47 WBC (3.8-10.6) k/uL RBC (3.80-5.40) m/uL Hgb (11.4-16.0) gm/dL Hct (34.0-46.0) % MCV (80.0-100.0) fL Neutrophils # (Manual) (1.3-7.7) k/uL Lymphocytes # (Manual) (1.0-4.8) k/uL Metamyelocytes # (Man) (0) k/uL Nucleated RBCs (0-0) /100 WBC ESR 26 H (0-20) mm/hr APTT (22.0-30.0) sec Lupus Anticoag aPTT 117 H (<43) Sec(s) Lupus Anticoag PTT Mix 77 H (<43) Sec(s) Dil Arnold Viper Venom 49 H (<44) Sec(s) Sodium (137-145) mmol/L Carbon Dioxide (22-30) mmol/L BUN (7-17) mg/dL Creatinine (0.52-1.04) mg/dL Glucose (74-99) mg/dL Calcium (8.4-10.2) mg/dL AST (14-36) U/L ALT (4-34) U/L Albumin (PEP) 3.29 L (3.80-4.90) g/dL Paxsm-1-Rjofdpieb 0.50 H (0.10-0.40) g/dL Free [place] LC, Quant (0.33-1.94) mg/dL Free Lambda LC, Quant (0.57-2.63) mg/dL 05/12/19 05/13/19 05/13/19 Range/Units 17:47 06:08 06:08 WBC 44.4 H (3.8-10.6) k/uL RBC 2.89 L (3.80-5.40) m/uL Hgb 9.6 L (11.4-16.0) gm/dL Hct 28.9 L (34.0-46.0) % MCV 100.1 H (80.0-100.0) fL Neutrophils # (Manual) 7.90 H (1.3-7.7) k/uL Lymphocytes # (Manual) 36.41 H (1.0-4.8) k/uL Metamyelocytes # (Man) 0.44 H (0) k/uL Nucleated RBCs 1 H (0-0) /100 WBC ESR (0-20) mm/hr APTT (22.0-30.0) sec Lupus Anticoag aPTT (<43) Sec(s) Lupus Anticoag PTT Mix (<43) Sec(s) Dil Arnold Viper Venom (<44) Sec(s) Sodium 133 L (137-145) mmol/L Carbon Dioxide 16 L (22-30) mmol/L BUN 63 H (7-17) mg/dL Creatinine 1.77 H (0.52-1.04) mg/dL Glucose 145 H (74-99) mg/dL Calcium 7.9 L (8.4-10.2) mg/dL AST 249 H (14-36) U/L ALT 342 H (4-34) U/L Albumin (PEP) (3.80-4.90) g/dL Tganw-7-Kyrzvgblq (0.10-0.40) g/dL Free [place] LC, Quant 4.05 H (0.33-1.94) mg/dL Free Lambda LC, Quant 2.92 H (0.57-2.63) mg/dL 05/13/19 Range/Units 06:08 WBC (3.8-10.6) k/uL RBC (3.80-5.40) m/uL Hgb (11.4-16.0) gm/dL Hct (34.0-46.0) % MCV (80.0-100.0) fL Neutrophils # (Manual) (1.3-7.7) k/uL Lymphocytes # (Manual) (1.0-4.8) k/uL Metamyelocytes # (Man) (0) k/uL Nucleated RBCs (0-0) /100 WBC ESR (0-20) mm/hr APTT 47.9 H (22.0-30.0) sec Lupus Anticoag aPTT (<43) Sec(s) Lupus Anticoag PTT Mix (<43) Sec(s) Dil Arnold Viper Venom (<44) Sec(s) Sodium (137-145) mmol/L Carbon Dioxide (22-30) mmol/L BUN (7-17) mg/dL Creatinine (0.52-1.04) mg/dL Glucose (74-99) mg/dL Calcium (8.4-10.2) mg/dL AST (14-36) U/L ALT (4-34) U/L Albumin (PEP) (3.80-4.90) g/dL Sqfpk-7-Fabtikske (0.10-0.40) g/dL Free [place] LC, Quant (0.33-1.94) mg/dL Free Lambda LC, Quant (0.57-2.63) mg/dL Assessment and Plan Plan: Assessment: 1 diffuse petechial rash with areas of ecchymosis. Findings are suggestive of vasculitis . A considerable vasculitis especially the patient has had some hematuria, acute kidney injury previous history of pericarditis and pericardial effusions. Further workup is needed in that regard. Rule out polyangiitis. Rule out lupus. The workup for vasculitis still in progress. Serum markers were sent and are negative thus far. Rheumatology is on consult, suggesting DIC and infectious disease workup 2 acute kidney injury, there is worsening in the renal function and creatinine is up to 1.9. Awaiting nephrology evaluation, consider a kidney biopsy. He function is improving on today's labs 3 hematuria, microscopic 4 diffuse arthralgias 5 leukocytosis, interval worsening in the white cell count is up to 29 6 history of pericardial effusion post window 7 bronchial asthma 8 CHF with mild impairment of LV function EF of around 45% along with severe MR and mild secondary pulmonary hypertension Plan: Patient was unable to have the renal biopsy today as the aspirin was only on hold for 2 days. Clinically she is stable, no worsening dyspnea, vital signs are stable, afebrile, rheumatology workup is in progress. Patient is in no acute distress, still has some exertional dyspnea, but no acute distress, afebrile, cultures are negative thus far. We'll continue to follow along with nephrology, and rheumatology, awaiting results of the final workup. I performed a history & physical examination of the patient and discussed their management with my nurse practitioner, Lori Kirkland. I reviewed the nurse practitioner's note and agree with the documented findings and plan of care. Lung sounds are positive for diffuse wheezes throughout the lung arango. The findings and the impression was discussed with the patient. I attest to the documentation by the nurse practitioner. Time with Patient: Less than 30
[2019-05-13 14:42] VITALS: TEMP 97.6
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
--- NOTE | 2019-05-13 15:09 | P.PN ---
Subjective Progress Note Date: 05/13/19 This is a pleasant 68-year-old female patient who follows with Dr. Fierro in the office. She has a history of hypothyroidism, large pericardial effusion in 2018 requiring pericardial window at which time troponins were elevated. According to the patient she underwent stress testing last summer w hich came in to be normal. Patient comes in this admission mostly with complaints of progressively worsening shortness of breath over the last few days prior to her admission here. She did have a history of flulike symptoms a few weeks ago as well as discomfort in her arms which she described as a hot, tingling pain that was relieved with heat. She began developing a rash on her hands and feet as well as her torso. She then noticed himself to be short of breath for approximately 3 day duration and presented to the hospital for further evaluation and treatment. Her EKG on admission showed sinus rhythm with ST-T wave abnormalities compared to her prior EKG. Her lab tests this morning, white blood cell count 29.4, hemoglobin 9.5, platelet count 295. Sodium 131, potassium 4.5, BUN 53 creatinine 1.9 today up from yesterday 34 and 1.6 yesterday. Echocardiogram with Doppler study was performed which revealed an ejection fraction of 40-45%, severe mitral regurgitation, severe tricuspid regurgitation. No pericardial effusion. Dr. Fernando did have a lengthy discussion with Dr. Dickerson and the patient, with the feeling that the patients findings may be suggestive of vasculitis, a considerable vasculitis especially due to the fact that the patient had some hematuria, acute kidney injury, history of pericarditis and pericardial effusion. Therefore a further thorough workup is recommended by pulmonary and by Dr. Fernando. The recommendation was that the patient be transferred to either [facility] or [facility] where they are more experienced in vasculitis. 05/12/2019 Patient was seen and examined this morning, she does state that she is feeling mildly better today, continues to have the rash on the bottom of her feet, continues to feel short of breath. Echocardiogram with Doppler study was performed which revealed an ejection fraction of 40-45%, LA is severely dilated, severe mitral regurgitation, severe tricuspid regurgitation. Blood pressure 1 12/60 with a heart rate in the 80s, 96% on room air. White blood cell count 42.7, hemoglobin 9.5, platelet count 372. Sodium 133, potassium 4.5, BUN 66, creatinine 1.9, AST 195, ALT 240, alk phos 95, TIBC 227, iron saturation 47.5, total bilirubin 676. 05/13/2019 Patient was seen and examined this morning, she continues to feel mildly better today, the rash on the bottom part of her feet continue to be about the same. Her white blood cell count today is up to 44.4, hemoglobin 9.6, platelet count 330. Neutrophils 7.9, lymphocytes 36.4, sodium 133, potassium 4.5, BUN 63, creatinine 1.7. AST 249, ALT 342. Nephrology's plan is to proceed with biopsy of the kidneys. Objective - Vital Signs Vital signs: Vital Signs Temp 97.6 F 05/13/19 08:00 Pulse 76 05/13/19 12:00 Resp 16 05/13/19 12:00 BP 113/77 05/13/19 12:00 Pulse Ox 95 05/13/19 12:00 Intake & Output 05/12/19 05/13/19 05/13/19 18:59 06:59 18:59 Intake Total 490 820 Output Total 400 Balance 90 820 Weight 63 kg Intake: Intake, IV Titration 250 160 Amount Heparin Sod,Pork in 0.45% 250 NaCl 25,000 unit In 0.45 % NaCl 1 250ml.bag @ 12 UNITS/KG/HR 7.637 mls/hr IV .Q24H LUCIA Rx#: [id number] Sodium Chloride 0.9% 1, 160 000 ml @ 20 mls/hr IV . Q24H STA Rx#:[id number] Oral 240 660 Output: Urine 400 Other: Voiding Method Toilet Toilet Toilet # Voids 1 - Exam PHYSICAL EXAMINATION: HEENT: Head is atraumatic, normocephalic. Pupils equal, round. Neck is supple. There is no elevated jugular venous pressure. HEART EXAMINATION: Heart sounds regular, S1 and S2 normal. Systolic murmur heard. CHEST EXAMINATION: Lungs reveal fine expiratory wheezes to bilateral lower lobes, improved air entry to bilateral bases. No chest wall tenderness is noted on palpation or with deep breathing. ABDOMEN: Soft, nontender. Bowel sounds are heard. No organomegaly noted. EXTREMITIES: 2+ peripheral pulses with evidence of trace peripheral edema and no calf tenderness noted. Rash noted to bilateral bottoms of feet. NEUROLOGIC patient is awake, alert and oriented x3. . - Labs CBC & Chem 7: 05/13/19 06:08 05/13/19 06:08 Labs: Abnormal Lab Results - Last 24 Hours (Table) 05/12/19 05/12/19 05/12/19 Range/Units 10:46 10:46 17:47 WBC (3.8-10.6) k/uL RBC (3.80-5.40) m/uL Hgb (11.4-16.0) gm/dL Hct (34.0-46.0) % MCV (80.0-100.0) fL Neutrophils # (Manual) (1.3-7.7) k/uL Lymphocytes # (Manual) (1.0-4.8) k/uL Metamyelocytes # (Man) (0) k/uL Nucleated RBCs (0-0) /100 WBC ESR 26 H (0-20) mm/hr APTT (22.0-30.0) sec Lupus Anticoag aPTT 117 H (<43) Sec(s) Lupus Anticoag PTT Mix 77 H (<43) Sec(s) Dil Arnold Viper Venom 49 H (<44) Sec(s) Sodium (137-145) mmol/L Carbon Dioxide (22-30) mmol/L BUN (7-17) mg/dL Creatinine (0.52-1.04) mg/dL Glucose (74-99) mg/dL Calcium (8.4-10.2) mg/dL AST (14-36) U/L ALT (4-34) U/L Albumin (PEP) 3.29 L (3.80-4.90) g/dL Tvdrn-3-Dojzjgtrm 0.50 H (0.10-0.40) g/dL Free Dulce LC, Quant (0.33-1.94) mg/dL Free Lambda LC, Quant (0.57-2.63) mg/dL 05/12/19 05/13/19 05/13/19 Range/Units 17:47 06:08 06:08 WBC 44.4 H (3.8-10.6) k/uL RBC 2.89 L (3.80-5.40) m/uL Hgb 9.6 L (11.4-16.0) gm/dL Hct 28.9 L (34.0-46.0) % MCV 100.1 H (80.0-100.0) fL Neutrophils # (Manual) 7.90 H (1.3-7.7) k/uL Lymphocytes # (Manual) 36.41 H (1.0-4.8) k/uL Metamyelocytes # (Man) 0.44 H (0) k/uL Nucleated RBCs 1 H (0-0) /100 WBC ESR (0-20) mm/hr APTT (22.0-30.0) sec Lupus Anticoag aPTT (<43) Sec(s) Lupus Anticoag PTT Mix (<43) Sec(s) Dil Arnold Viper Venom (<44) Sec(s) Sodium 133 L (137-145) mmol/L Carbon Dioxide 16 L (22-30) mmol/L BUN 63 H (7-17) mg/dL Creatinine 1.77 H (0.52-1.04) mg/dL Glucose 145 H (74-99) mg/dL Calcium 7.9 L (8.4-10.2) mg/dL AST 249 H (14-36) U/L ALT 342 H (4-34) U/L Albumin (PEP) (3.80-4.90) g/dL Engjl-3-Axjnwcfsf (0.10-0.40) g/dL Free Dulce LC, Quant 4.05 H (0.33-1.94) mg/dL Free Lambda LC, Quant 2.92 H (0.57-2.63) mg/dL 05/13/19 Range/Units 06:08 WBC (3.8-10.6) k/uL RBC (3.80-5.40) m/uL Hgb (11.4-16.0) gm/dL Hct (34.0-46.0) % MCV (80.0-100.0) fL Neutrophils # (Manual) (1.3-7.7) k/uL Lymphocytes # (Manual) (1.0-4.8) k/uL Metamyelocytes # (Man) (0) k/uL Nucleated RBCs (0-0) /100 WBC ESR (0-20) mm/hr APTT 47.9 H (22.0-30.0) sec Lupus Anticoag aPTT (<43) Sec(s) Lupus Anticoag PTT Mix (<43) Sec(s) Dil Arnold Viper Venom (<44) Sec(s) Sodium (137-145) mmol/L Carbon Dioxide (22-30) mmol/L BUN (7-17) mg/dL Creatinine (0.52-1.04) mg/dL Glucose (74-99) mg/dL Calcium (8.4-10.2) mg/dL AST (14-36) U/L ALT (4-34) U/L Albumin (PEP) (3.80-4.90) g/dL Socqw-0-Czimmudma (0.10-0.40) g/dL Free Dulce LC, Quant (0.33-1.94) mg/dL Free Lambda LC, Quant (0.57-2.63) mg/dL Assessment and Plan Plan: Assessment and plan #1 diffuse petechial rash with areas of ecchymosis. Findings are suggestive of vasculitis . A considerable vasculitis especially the patient has had some hematuria, acute kidney injury previous history of pericarditis and pericardial effusions. Further workup is needed in that regard. #2 acute kidney injury #3 hematuria, microscopic #4 diffuse arthralgias #5 leukocytosis #6 history of pericardial effusion post window #7 bronchial asthma Plan From cardiology's perspective, we'll continue the patient on her current medications. She is scheduled to undergo a biopsy of her kidneys and further recommendations from nephrology and primary care then will be made. DNP note has been reviewed, I agree with a documented findings and plan of care. Patient was seen and examined.
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
--- NOTE | 2019-05-13 15:34 | PN ---
PROGRESS NOTE Patient is seen for followup for acute kidney injury. She is scheduled for kidney biopsy today. Renal function has improved to some degree with creatinine down to 1.7 from 1.9. The patient has been voiding well. She states overall she feels about the same or perhaps slightly better. No significant shortness of breath, nausea or vomiting. The patient has been evaluated by Rheumatology and Hematology. Lambda and kappa chains were slightly elevated and all other serologies are negative thus far. PHYSICAL EXAMINATION: Today, blood pressure was 112/73, heart rate 74 per minute, patient is afebrile. Examination of the heart S1, S2. Examination of the lungs, bilateral breath sounds are heard. Abdomen is soft, non-tender. Examination of the lower extremities shows no significant edema. DRYING RACK CHANGER exam grossly intact. LABS: Show hemoglobin 9.6 g/dL sodium 133, potassium 4.5, CO2 is 16, BUN 63, creatinine 1.7. ASSESSMENT: 1. Acute kidney injury. Rule out underlying paraproteinemia versus acute GN. So far all serologies are negative. Lambda and kappa chains were slightly elevated. The patient is scheduled for kidney biopsy today. 2. Non-gap metabolic acidosis secondary to renal failure, no diarrhea. Add sodium bicarb. 3. Cardiomyopathy, which is a new drop in the ejection fraction with ejection fraction of 40%-45% with severely dilated LA. PLAN: Proceed with kidney biopsy. Continue off IV fluids. Repeat labs in a.m. Add low-dose sodium bicarb. MMODL / IJN: [id number] /
--- NOTE | 2019-05-13 16:05 | P.DS ---
Providers Date of admission: 05/09/19 18:29 Expected date of discharge: 05/13/19 Attending physician: Kavitha Cabrera DO Consults: 05/09/19 18:32 Consult Physician Urgent Consulting Provider: Cale Fernando Consult Reason/Comments: chf,acs Do you want consulting provider notified?: Already Contacted 05/10/19 11:25 Consult Physician Routine Consulting Provider: Efraín Dickerson Consult Reason/Comments: dyspnea Do you want consulting provider notified?: Yes 05/10/19 15:23 Consult Physician Stat Consulting Provider: Loreta Rosas Consult Reason/Comments: rash, possible myocarditis, r/o vasculitis Do you want consulting provider notified?: Yes 05/11/19 08:22 Consult Physician Routine Consulting Provider: Luz Mcclain Consult Reason/Comments: NAHUN Do you want consulting provider notified?: Yes 05/11/19 12:46 Consult Physician Routine Consulting Provider: Holland Peña Consult Reason/Comments: biopsy Do you want consulting provider notified?: Yes 05/12/19 14:07 Consult Physician Routine Consulting Provider: Jason Calvillo Consult Reason/Comments: evaluation for sepsis Do you want consulting provider notified?: Yes 05/12/19 14:32 Consult Physician Routine Consulting Provider: Yefri Olmstead Consult Reason/Comments: leukocytosis Do you want consulting provider notified?: Yes 05/13/19 12:22 Consult Physician Routine Consulting Provider: Jean Claude Robertson Consult Reason/Comments: Transaminitis Do you want consulting provider notified?: Yes Primary care physician: [facility] [place] Hospital Course: Discharge diagnoses Petechial rash Acute kidney injury Hematuria Leukocytosis History of pericardial window Bronchial asthma transaminitis Elevated troponin Elevated d-dimer Hospital course The patient is a 68-year-old female with a history of bronchial asthma, previous pericarditis with pericardial effusion requiring pericardial window that presented to the ER with a petechial rash on her hands feet and trunk area and abdomen. She was also noted to have hematuria and acute kidney injury with proteinuria. There is concern for vasculitis the patient was started on systemic steroids with prednisone, which is also to have elevated d- dimer PET scan was positive for several numerous matching defects with a low intermediate probability for PE, chest x-ray showed hepatomegaly and some mild pulmonary vascular congestion, venous Dopplers were negative for DVT. The patient presented with a creatinine of 1.5 to trend up to 1.95, nephrology was consulted and recommended obtaining a kidney biopsy to rule out vasculitis. The patient was seen by rheumatology and several serologies were ordered which were all negative including negative MELECIO, P & C Anca, complement C3 and 4 were normal limits. The patient presented with a white count of 21.6 And this gradually trended up to 44.4. Echocardiogram was performed showed mild LV impairment of 40-45%, with severe MR and severe TR, general surgery was consulted the planned no skin biopsy. The patient was noted to have elevated transaminases which gradually trended up right upper quadrant ultrasound showed hepatomegaly with possible underlying hepatocellular disease in the right pleural effusion, gallbladder was surgically absent. In discussing the patient's overall care and was best practice to involve specialist such as dermatology to obtain a skin/tissue biopsy with plans for a multidisciplinary approach to the patient's care, it was decided that the patient be transferred to [facility], Dr. Marshall was the accepting physicain. This discharge process took ap proximately 35 minutes. Patient Condition at Discharge: Serious Plan - Discharge Summary Discharge Rx Participant: No New Discharge Prescriptions: No Action Multivitamins, Thera [Multivitamin (formulary)] 1 tab PO DAILY Levothyroxine Sodium [Synthroid] 50 mcg PO DAILY Albuterol Inhaler [Ventolin Hfa Inhaler] 2 puff INHALATION RT-QID PRN PRN Reason: Shortness Of Breath Metoprolol Tartrate [Lopressor] 12.5 mg PO DAILY Fluticasone Nasal [place] [Flonase Nasal [place]] 2 spr EA NOSTRIL DAILY Cyanocobalamin (Vitamin B-12) [Vitamin B-12] 1,000 mcg PO DAILY Cetirizine HCl [Zyrtec] 10 mg PO DAILY Ascorbic Acid [Vitamin C] 1,000 mg PO DAILY Fluticasone/Salmeterol [Advair 250-50 Diskus] 1 puff INHALATION RT-DAILY Calcium 1000mg 1,000 mg PO DAILY Albuterol Nebulized [Ventolin Nebulized] 2.5 mg INHALATION RT-QID PRN PRN Reason: Shortness Of Breath Krill Oil(Unknown Dose) 1 cap PO DAILY Discharge Medication List Albuterol Inhaler [Ventolin Hfa Inhaler] 2 puff INHALATION RT-QID PRN 06/14/17 [History] Levothyroxine Sodium [Synthroid] 50 mcg PO DAILY 06/14/17 [History] Multivitamins, Thera [Multivitamin (formulary)] 1 tab PO DAILY 06/14/17 [History] Metoprolol Tartrate [Lopressor] 12.5 mg PO DAILY 10/28/18 [History] Albuterol Nebulized [Ventolin Nebulized] 2.5 mg INHALATION RT-QID PRN 05/09/19 [History] Ascorbic Acid [Vitamin C] 1,000 mg PO DAILY 05/09/19 [History] Calcium 1000mg 1,000 mg PO DAILY 05/09/19 [History] Cetirizine HCl [Zyrtec] 10 mg PO DAILY 05/09/19 [History] Cyanocobalamin (Vitamin B-12) [Vitamin B-12] 1,000 mcg PO DAILY 05/09/19 [History] Fluticasone Nasal [place] [Flonase Nasal [place]] 2 spr EA NOSTRIL DAILY 05/09/19 [History] Fluticasone/Salmeterol [Advair 250-50 Diskus] 1 puff INHALATION RT-DAILY 05/09/19 [History] Krill Oil(Unknown Dose) 1 cap PO DAILY 05/09/19 [History] Follow up Appointment(s)/Referral(s): Abraham Fierro MD [STAFF PHYSICIAN] - 05/25/19 2:30 pm (Saturday) Katerin Whitlock MD [Primary Care Provider] - 1-2 days
[2019-05-13 16:56] VITALS: BP 122/79; PULSE 80
[2019-05-13] MEDS ORDERED: SODIUM BICARBONATE TAB 650 MG TAB PO SCH (21:00)
--- NOTE | 2019-05-13 23:48 | CONS ---
CONSULTATION DATE OF DICTATION: 05/13/2019 REASON FOR CONSULTATION: Elevated LFTs. HISTORY OF PRESENT ILLNESS: The patient is a 68-year-old pleasant white female admitted to the hospital with acute coronary syndrome/congestive heart failure. When she presented to the hospital she was complaining of shortness of breath and had rash involving the upper extremities for 1-2 weeks prior to hospitalization. The rash continued to progressively get worse, with associated fever, chills, weight loss, decreased appetite, and hence she came into the emergency room for evaluation. During the course of hospitalization over the last one week she was also to have worsening BUN and creatinine. Nephrology has been consulted. She is undergoing further workup and in fact is scheduled for a kidney biopsy in the next 3-4 days. At the time of admission to the hospital, her serum transaminases were slightly elevated, with ALT and AST in the range of 45 and 55, respectively. Over the course of the last one week her serum transaminases were gradually increasing, and the last labs as of today show an AST of 249 and ALT of 342 with normal alkaline phosphatase and total bilirubin. On review of her medications, she states that the only new medications that she has received were during this hospitalization, which were IV Lasix and prednisone. She does not recall starting any new medications in the last one month prior to hospitalization. She was also noted to have elevated white count at 44,000 with predominant lymphocytes, and Oncology has been consulted for chronic lymphocytic leukemia. She presently denies any abdominal pain, reports no nausea, vomiting. No rectal bleeding or melena. PAST MEDICAL HISTORY: Significant for pericardial window back in 2018 because of pericardial effusion, history of hypertension, asthma, hypothyroidism, gastroesophageal reflux disease, history of myopericarditis in 2018 for which she underwent a pericardial window. PAST SURGICAL HISTORY: Cholecystectomy and pericardial window in 2018, D&C, breast implants. SOCIAL HISTORY: Former smoker. FAMILY HISTORY: Mother has hypertension, hyperlipidemia. Father had tuberculosis. MEDICATIONS: Medications at home include albuterol, vitamin C, calcium, Zyrtec, vitamin B12, Flonase, Advair. ALLERGIES: CIPRO, CECLOR, CLARITHROMYCIN, SULFA ANTIBIOTICS. REVIEW OF SYSTEMS: CARDIOPULMONARY: She still complains of some shortness of breath but denies any chest pain. NEUROLOGY: Unremarkable. PSYCHIATRY: Unremarkable. ENT/VISION: Unremarkable. CONSTITUTIONAL: No recent weight loss. No fever, chills, night sweats. SKIN: She had petechial rash throughout the body, which has now resolved. ENDOCRINE: Unremarkable. HEMATOLOGY: Newly diagnosed CLL. MUSCULOSKELETAL: Unremarkable. PHYSICAL EXAMINATION: She appears comfortable. No apparent distress. Vital signs are stable. Blood pressure is 133/79, pulse rate 80, temperature 97.6. HEENT examination unremarkable. Conjunctivae pink. Sclerae anicteric. Oral cavity no lesions. NECK: No JVD or lymph node enlargement. CHEST: Clear to auscultation. HEART: Regular rate and rhythm. ABDOMEN: Soft. There was tenderness in the right upper quadrant area. Liver appeared to be slightly palpable 3 cm below the right costal margin. Spleen was not palpable. EXTREMITIES: No pedal edema. SKIN: No rashes. NEUROLOGIC: She was alert and oriented x3. No focal deficits. LABS: WBC 44.4, hemoglobin 9.6, platelets normal. BUN 63, creatinine 1.77. AST on 05/08 was 44 and ALT was 44. Two days ago on 05/09 AST was 61, ALT was 57. On 05/11, AST was 195, ALT 240. On 05/12, which is today, AST is 249, ALT 342. Troponin 1.7. CPK is 213. MELECIO was negative. Hepatitis serologies for A, B and C are negative. Ultrasound of the abdomen done this morning showed evidence of hepatomegaly with coarse echotexture suggestive of liver disease hepatocellular disease. IMPRESSION: 1. Elevated serum transaminases that have been progressively getting worse during this hospitalization. Patient states that she does not have any history of chronic liver disease. No history of alcohol abuse. Hepatitis serologies for A, B and C are negative. Other workup, including antinuclear antibody, was negative. At this time etiology for the elevated LFTs remains unclear. Possibility of medication-induced hepatitis versus autoimmune etiology needs to be considered, given the overall clinical picture. 2. Acute kidney injury, for which Nephrology is following the patient closely. She was noted to have proteinuria and is presently being evaluated for possible nephritis. She is scheduled for a kidney biopsy in 3-4 days. Aspirin is on hold. 3. History of myopericarditis in 2018 requiring pericardial window. 4. Petechial skin rash at the time of presentation to the hospital with fever and chills and mild abdominal pain; rule out vasculitis. RECOMMENDATIONS: 1. Will initiate workup for chronic liver disease. 2. Continue current medications. 3. Repeat labs in the morning. 4. Avoid hepatotoxic medications. 5. Will continue to follow with you closely during her hospital stay. Thank you for this consultation. MARIE / JAIRO: [id number] /
[2019-05-14 13:05] LABS: Aldolase 15.7 U/L (1.2-7.6)
[2019-05-14 13:38] LABS: C-ANCA <1:20 Titer (<1:20)
== END 2019-05-13 21:58 | disposition short-term general hospital (02) | DRG 545 ==
LOC: EC 15:22 → 3SCARD 18:29
PROVIDERS: ADMIT Internal Medicine; ATTEND Internal Medicine
DX: I77.6 Arteritis, unspecified (principal); I40.0 Infective myocarditis; I50.21 Acute systolic (congestive) heart failure; N17.9 Acute kidney failure, unspecified; C91.10 Chronic lymphocytic leukemia of B-cell type not having achieved remission; E87.2 Acidosis; I42.9 Cardiomyopathy, unspecified; I27.29 Other secondary pulmonary hypertension; R16.0 Hepatomegaly, not elsewhere classified; D63.8 Anemia in other chronic diseases classified elsewhere; I11.0 Hypertensive heart disease with heart failure; R21 Rash and other nonspecific skin eruption; J45.20 Mild intermittent asthma, uncomplicated; I45.10 Unspecified right bundle-branch block; R79.82 Elevated C-reactive protein (CRP); E03.9 Hypothyroidism, unspecified; R79.89 Other specified abnormal findings of blood chemistry; R31.29 Other microscopic hematuria; M25.50 Pain in unspecified joint; I08.3 Combined rheumatic disorders of mitral, aortic and tricuspid valves; N05.9 Unspecified nephritic syndrome with unspecified morphologic changes; K76.9 Liver disease, unspecified; K21.9 Gastro-esophageal reflux disease without esophagitis; T38.0X5A Adverse effect of glucocorticoids and synthetic analogues, initial encounter; Z79.899 Other long term (current) drug therapy; Z79.52 Long term (current) use of systemic steroids; Z79.890 Hormone replacement therapy; Z87.01 Personal history of pneumonia (recurrent); Z87.442 Personal history of urinary calculi; Z87.891 Personal history of nicotine dependence; Z87.39 Personal history of other diseases of the musculoskeletal system and connective tissue; Z98.82 Breast implant status; Z90.49 Acquired absence of other specified parts of digestive tract; Z88.1 Allergy status to other antibiotic agents; Z88.2 Allergy status to sulfonamides; Z82.49 Family history of ischemic heart disease and other diseases of the circulatory system; Z83.438 Family history of other disorder of lipoprotein metabolism and other lipidemia; Z80.1 Family history of malignant neoplasm of trachea, bronchus and lung; Z83.1 Family history of other infectious and parasitic diseases
CPT/HCPCS: 36415; 71046; 71250; 76705; 78582; 80048; 80053; 81001; 82085; 82164; 82550; 82553; 82728; 83516; 83540; 83550; 83735; 83880; 83883; 84100; 84165; 84443; 84484; 85025; 85379; 85598; 85610; 85613; 85652; 85730; 85732; 85810; 86038; 86140; 86146; 86147; 86160; 86225; 86255; 86334; 86335; 86431; 86618; 86706; 86757; 86803; 87040; 87086; 87340; 87502; 93005; 93306; 93970; 96365; 96375; 96376; 99291